=== PATIENT | male | born 1965 | race American Indian/Alaskan Native ===

== ENCOUNTER 2017-10-22 09:55 | Day surgery (SDC) | payer MEDICARE ==
[2017-10-22] MEDS ORDERED: NACL 0.9% 1000 ML 1,000 ML IV SCH (11:00)
--- NOTE | 2017-10-22 11:26 | Anesthesia Consultation ---
Anesthesia Consult and Med Hx Date of service: 10/22/17 - Airway Anesthetic Teeth Evaluation: Poor ROM Head & Neck: Adequate Mental/Hyoid Distance: Adequate Mallampati Class: Class II Intubation Access Assessment: Probably Good - Pulmonary Exam CTA: Yes - Cardiac Exam Cardiac Exam: RRR - Pre-Operative Health Status ASA Pre-Surgery Classification: ASA4 Proposed Anesthetic Plan: MAC - Pulmonary Hx Smoking: Yes Hx Sleep Apnea: Yes - Cardiovascular System Hx Hypertension: Yes - Endocrine Hx End Stage Renal Disease: Yes (on HD. Last HD yesterday)
--- NOTE | 2017-10-22 11:27 | Anesthesia Day of Surgery ---
Anesthesia Day of Surgery - Day of Surgery Patient Examined: Yes Patient H&P Reviewed: Yes Patient is NPO: Yes
[2017-10-22] MEDS ORDERED: DIPRIVAN 10 MG/ML IV ONE ×3 (11:31→12:17)
[2017-10-22] MEDS ORDERED: ADRENALIN ONE (12:00)
[2017-10-22] MEDS ORDERED: GI SPOT IJ ONE (12:01)
[2017-10-22] MEDS ORDERED: ADRENALIN IV ONE (12:18)
--- NOTE | 2017-10-22 12:30 | Operative Report ---
Operative Report Operative Report: Date of procedure: 10/22/2017 Preprocedure diagnosis: Colon cancer screening Post procedure diagnosis: Diminutive cecal polyp, small proximal sigmoid colon polyps and a large distal sigmoid polyp on a stalk. Procedure: Colonoscopy to the cecum with cold snare polypectomy of the cecal lesion, hot snare polypectomy of 2 sigmoid lesions and injection of epinephrine and the large lesion on a stalk in the distal sigmoid followed by hot snare polypectomy Endoscopist: Dr. Corona Anesthesia: Monitored anesthesia care per anesthesia department Estimated blood loss: 0 Medications: Monitored anesthesia care. See separate report by anesthesia for details. After careful discussion of the nature and purpose of the procedure as well as details of the technique risks benefits and alternatives the patient gave consent. Please see recent history and physical from the office. The patient was placed in the left lateral decubitus position and medicated per anesthesia. A rectal exam was performed sphincter tone was normal there were no masses palpable. The Tidy Booksn 570 scope was passed transanally and advanced under continuous direct vision without difficulty to the cecum. The colon was well prepared. The cecum revealed a diminutive polyp, approximately 4 mm in size. The polyp was removed with cold snare resection and retrieved by suction. The ascending colon was normal and on forward and retroflexed views. The transverse colon and descending colon were normal. There were 2 small polyps, 6-8 mm in size in the proximal sigmoid colon. These were removed with hot snare polypectomy and retrieved by suction. There were submitted together in jar 2. A large distal sigmoid polyp was present with an approximately 3 cm size head and a long stalk. The stalk was injected with 2 mL of 1-10,000 epinephrine followed by careful hot snare resection at the level of the stalk successfully. There is no bleeding post polypectomy. The polyp was removed by suction on the tip of the scope during withdrawal. The rectum was normal on forward and retroflexed views. The procedure was well-tolerated overall and the patient was observed in recovery. Conclusions: Diminutive cecal polyp. 2 small sigmoid polyps. One large distal sigmoid polyp on a stalk requiring epinephrine injection to prevent hemorrhage Plan: Pathology. Follow-up colonoscopy in 2-3 years depending upon the pathology. Signed electronically: Bryon Corona M.D.
--- NOTE | 2017-10-22 12:35 | Short Stay Summary ---
Short Stay Documentation Date of service: 10/22/17 Narrative H&P: The patient presents for colon cancer screening. No prior colonoscopy. - History Past Medical History: ESRD (on dialysis), hypertension Past Surgical History: Other (AV fistula for dialysis) Social history: no significant social history, other (history of polysubstance abuse) - Allergies and Medications Current Medications: Allergies No Known Allergies Allergy (Verified 10/21/17 14:47) Home Medications Medication Instructions Recorded Confirmed Last Taken Type RX: Carvedilol [Coreg] 25 mg PO DAILY 02/11/17 10/22/17 10/20/17 History RX: Cinacalcet [Sensipar] 30 mg PO QPM 02/11/17 10/22/17 10/20/17 History RX: Hydralazine HCl [Apresoline 50 mg PO Q8HR 02/11/17 10/22/17 02/12/17 History TAB] RX: Lisinopril [Zestril] 50 mg PO DAILY 02/11/17 10/22/17 10/20/17 History RX: Naproxen Sodium [Aleve TAB] 220 mg PO DAILY 02/11/17 10/22/17 02/07/17 History RX: Pravastatin Sodium 40 mg PO QHS 02/11/17 10/22/17 10/20/17 History [Pravastatin] RX: Sevelamer Carbonate [Renvela] 80 mg PO DAILY 02/11/17 10/22/17 10/20/17 History RX: NIFEdipine XL [Procardia Xl] 60 mg PO Q12HR #60 tablet 02/12/17 10/22/17 Unknown Rx amLODIPine 10 mg PO DAILY 10/22/17 10/22/17 10/20/17 History Active Medications Sodium Chloride (Nacl 0.9% 1000 Ml) 1,000 mls @ 50 mls/hr IV DIRECT DANITA Last Admin: 10/22/17 11:17 Dose: 50 mls/hr - Physical exam General appearance: no acute distress, well-nourished Integumentary: no rash, no growths HEENT: Atraumatic, PERRLA, EOMI Lungs: Clear to auscultation Breasts: deferred Heart: Regular rate, Normal S1, Normal S2, No murmurs Gastrointestinal: normoactive bowel sounds, no distended, no masses, no organomegaly Male Genitourinary: deferred Rectal Exam: normal exam-external/orifice, normal rectal tone Extremities: no ischemia, pulses intact, pulses symmetrical, No edema, normal color Neurological: Normal gait, Normal speech, Strength at 5/5 X4 ext, Normal tone, Sensation intact, Cranial nerves 3-12 NL - Brief post op/procedure progress note Date of procedure: 10/22/17 Findings: see dictated repors Estimated blood loss: none Pathology: list (cecal polyp, 2 proximal sigmoid polyps, 1 large distal sigmoid polyp) Specimen disposition: to lab Condition: stable - Disposition Condition at discharge: Good - Discharge Diagnoses (1) Colon cancer screening Status: Acute (2) Metabolic acidosis Status: Acute (3) Hypertension Status: Chronic Short Stay Discharge Plan Activity: other (no driving for 24 hours, no NSAIDS for 7 days) Follow up with: JOSEPH QUIROZ MD [Primary Care Provider] - 7 Days
[2017-10-22] MEDS ORDERED: APRESOLINE IV ONE (13:10)
[2017-10-22] MEDS ORDERED: APRESOLINE ONE (13:14)
[2017-10-22 13:41] VITALS: BP 164/89
--- NOTE | 2017-10-22 15:11 | Post Anesthesia Evaluation ---
- Post Anesthesia Evaluation Patient Participated: Yes Airway Patent: Yes Stable Respiratory Function: Yes Nausea/Vomiting: No Temp > 96.8F: Yes Pain Manageable: Yes Adequeate Hydration: Yes Anesthesia Complications: No
== END 2017-10-22 09:56 | disposition home or self-care (01) ==
LOC: GIO 09:55
PROVIDERS: ATTEND Internal Medicine Gastroenterology
DX: Z12.11 Encounter for screening for malignant neoplasm of colon (principal); D12.0 Benign neoplasm of cecum; D12.5 Benign neoplasm of sigmoid colon; K63.5 Polyp of colon; I12.0 Hypertensive chronic kidney disease with stage 5 chronic kidney disease or end stage renal disease; N18.6 End stage renal disease; E78.5 Hyperlipidemia, unspecified; G47.30 Sleep apnea, unspecified; F17.200 Nicotine dependence, unspecified, uncomplicated; Z99.2 Dependence on renal dialysis
CPT/HCPCS: 45385; 45390; 88305; J0171; J0360; J2704; J7030

== ENCOUNTER 2017-12-20 16:23 | Emergency (ER) | payer MEDICARE ==
[2017-12-20 17:48] LABS: Hematocrit 34.7 % (35.5-45.6); Hemoglobin 11.3 gm/dl (11.8-15.2); Mean Corpuscular HGB Conc 33 % (32-34); Mean Corpuscular Hemoglobin 29 pg (28-32); Mean Corpuscular Volume 89 fl (84-94); Platelet Count 141 K/mm3 (140-440); Red Blood Count 3.91 M/mm3 (3.65-5.03); Red Cell Distribution Width 14.5 % (13.2-15.2)
[2017-12-20] MEDS ORDERED: ZOFRAN IV ONE (17:57)
[2017-12-20] MEDS ORDERED: NACL 0.9% 500 ML 500 ML IV ONE (17:57)
[2017-12-20] MEDS ORDERED: PEPCID IV ONE (17:57)
[2017-12-20 18:14] LABS: Albumin 4.1 g/dL (3.9-5); Calcium 8.9 mg/dL (8.4-10.2)
[2017-12-20 18:39] LABS: Band Neutrophils # (Manual) 0.1 K/mm3; Basophils % (Manual) 0 % (0.0-1.8); Total Cells Counted 100
[2017-12-20 18:40] LABS: RBC Morphology Normal
--- NOTE | 2017-12-20 20:33 | Ultrasound Report ---
FINAL REPORT PROCEDURE: US ABDOMEN COMPLETE TECHNIQUE: Real-time sonography in multiple planes of the abdomen was performed with image documentation. CPT 04788 HISTORY: NV after eating r/o gallstones COMPARISON: No prior studies are available for comparison. FINDINGS: Liver: Normal size and echotexture with no evidence of cystic or solid mass lesions. Gallbladder: There is mild degree thickening of gallbladder lane. No calculi or pericholecystic collections are identified.. Intrahepatic bile ducts: Normal caliber . Extrahepatic bile ducts: Normal caliber with the common duct measuring 4 millimeters.. Pancreas: Visualized pancreatic head and body demonstrate normal echotexture. Aorta: Visualized portions appear normal. IVC: Visualized portions appear normal. RIGHT kidney: Diffusely increased echotexture with multiple simple cysts.. Length: 9.4 x 3.4 x 5.2cm. LEFT kidney: Diffusely increased to a echotexture with multiple simple cysts. Length: 10.0 x 5.6 x 5.9cm. Spleen: Normal size and echotexture. No focal lesions. Intraperitoneal fluid: Mild degree ascites is identified.. Other: None . IMPRESSION: Increased echotexture bilateral kidneys consistent with chronic medical renal disease. There is no obstructive uropathy. Mild degree ascites Mild degree gallbladder wall thickening is most likely secondary to generalized edema. Differential diagnosis includes acalculous cholecystitis, CHF etc.
[2017-12-20 20:56] LABS: Bilirubin,Urine NEG (Negative); Blood,Urine SM (Negative); Color,Urine Yellow (Yellow); Protein,Urine >500 mg/dL (Negative); Urobilinogen,Urine < 2.0 mg/dL (<2.0)
--- NOTE | 2017-12-20 21:45 | Emergency Department Report ---
ED N/V/D HPI - General Chief complaint: Nausea/Vomiting/Diarrhea Stated complaint: VOMITING Time Seen by Provider: 12/20/17 17:50 Source: patient Mode of arrival: Ambulatory Limitations: No Limitations - History of Present Illness Initial comments: Patient is a 52-year-old black male past history end-stage renal disease on hemodialysis who is presenting with nausea and vomiting diarrhea. Patient states that after he eats for the last week he feels nauseous sometimes gets sweaty and then has diarrhea. Patient states he is limiting his by mouth intake because of these symptoms. Patient patient states that there is no abdominal pain fever chills. Patient denies cough. Patient states this only happens after he eats and is most after his dialysis. Description of Diarrhea: water Associated Abdominal Pain: No Consistency: intermittent Worsens with: eating - Related Data Home Medications Medication Instructions Recorded Confirmed Last Taken Carvedilol [Coreg] 25 mg PO DAILY 02/11/17 10/22/17 10/20/17 Cinacalcet [Sensipar] 30 mg PO QPM 02/11/17 10/22/17 10/20/17 Hydralazine HCl [Apresoline TAB] 50 mg PO Q8HR 02/11/17 10/22/17 02/12/17 Lisinopril [Zestril] 50 mg PO DAILY 02/11/17 10/22/17 10/20/17 Naproxen Sodium [Aleve TAB] 220 mg PO DAILY 02/11/17 10/22/17 02/07/17 Pravastatin Sodium [Pravastatin] 40 mg PO QHS 02/11/17 10/22/17 10/20/17 Sevelamer Carbonate [Renvela] 80 mg PO DAILY 02/11/17 10/22/17 10/20/17 amLODIPine 10 mg PO DAILY 10/22/17 10/22/17 10/20/17 Previous Rx's Medication Instructions Recorded Last Taken Type NIFEdipine XL [Procardia Xl] 60 mg PO Q12HR #60 tablet 02/12/17 Unknown Rx Dicyclomine [Bentyl] 40 mg PO QID #12 tablet 12/20/17 Unknown Rx Diphenoxylate/Atropine [Lomotil] 1 tab PO BID PRN #10 tablet 12/20/17 Unknown Rx Ondansetron [Zofran Odt] 4 mg PO Q8HR PRN #12 tab.rapdis 12/20/17 Unknown Rx Allergies Allergy/AdvReac Type Severity Reaction Status Date / Time No Known Allergies Allergy Verified 10/21/17 14:47 ED Review of Systems ROS: Stated complaint: VOMITING Other details as noted in HPI Comment: All other systems reviewed and negative ED Past Medical Hx - Past Medical History Hx Hypertension: Yes Hx Renal Disease: Yes Additional medical history: dialysis pt,tues,thurs sat - Surgical History Past Surgical History?: Yes Additional Surgical History: fisutla CARLENE - Social History Smoking Status: Former Smoker Substance Use Type: Alcohol - Medications Home Medications: Home Medications Medication Instructions Recorded Confirmed Last Taken Type Carvedilol [Coreg] 25 mg PO DAILY 02/11/17 10/22/17 10/20/17 History Cinacalcet [Sensipar] 30 mg PO QPM 02/11/17 10/22/17 10/20/17 History Hydralazine HCl [Apresoline TAB] 50 mg PO Q8HR 02/11/17 10/22/17 02/12/17 History Lisinopril [Zestril] 50 mg PO DAILY 02/11/17 10/22/17 10/20/17 History Naproxen Sodium [Aleve TAB] 220 mg PO DAILY 02/11/17 10/22/17 02/07/17 History Pravastatin Sodium [Pravastatin] 40 mg PO QHS 02/11/17 10/22/17 10/20/17 History Sevelamer Carbonate [Renvela] 80 mg PO DAILY 02/11/17 10/22/17 10/20/17 History NIFEdipine XL [Procardia Xl] 60 mg PO Q12HR #60 tablet 02/12/17 10/22/17 Unknown Rx amLODIPine 10 mg PO DAILY 10/22/17 10/22/17 10/20/17 History Dicyclomine [Bentyl] 40 mg PO QID #12 tablet 12/20/17 Unknown Rx Diphenoxylate/Atropine [Lomotil] 1 tab PO BID PRN #10 tablet 12/20/17 Unknown Rx Ondansetron [Zofran Odt] 4 mg PO Q8HR PRN #12 tab.rapdis 12/20/17 Unknown Rx ED Physical Exam - General Limitations: No Limitations General appearance: alert, in no apparent distress - Head Head exam: Present: atraumatic, normocephalic - Eye Eye exam: Present: normal appearance - ENT ENT exam: Present: mucous membranes moist - Neck Neck exam: Present: normal inspection - Respiratory Respiratory exam: Present: normal lung sounds bilaterally. Absent: respiratory distress, wheezes, rales, rhonchi - Cardiovascular Cardiovascular Exam: Present: regular rate, normal rhythm. Absent: systolic murmur, diastolic murmur, rubs, gallop - GI/Abdominal GI/Abdominal exam: Present: soft, normal bowel sounds - Rectal Rectal exam: Present: deferred - Extremities Exam Extremities exam: Present: normal inspection - Back Exam Back exam: Present: normal inspection - Neurological Exam Neurological exam: Present: alert, oriented X3 - Psychiatric Psychiatric exam: Present: normal affect, normal mood - Skin Skin exam: Present: warm, dry, intact, normal color. Absent: rash ED Course Vital Signs 12/20/17 12/20/17 12/20/17 17:15 17:58 20:00 Temperature 98.2 F 99.3 F Pulse Rate 65 66 67 Respiratory 16 16 19 Rate Blood Pressure 151/83 Blood Pressure 166/94 161/93 [Left] O2 Sat by Pulse 100 100 98 Oximetry ED Medical Decision Making - Lab Data Result diagrams: 12/20/17 17:32 12/20/17 17:32 - Radiology Data Radiology results: report reviewed Patient has no acute process. Patient does have some mild fluid overload secondary to most likely to his end-stage renal disease. - Medical Decision Making Patient was feeling slightly improved. Patient's laboratory studies as well as his ultrasound did not show any convincing reason why the patient is having these symptoms. Patient will be referred to gastroenterology. Critical care attestation.: If time is entered above; I have spent that time in minutes in the direct care of this critically ill patient, excluding procedure time. ED Disposition Clinical Impression: Gastroenteritis Disposition: DC-01 TO HOME OR SELFCARE Is pt being admited?: No Does the pt Need Aspirin: No Condition: Stable Instructions: Gastroenteritis (ED) Prescriptions: Dicyclomine [Bentyl] 40 mg PO QID #12 tablet Diphenoxylate/Atropine [Lomotil] 1 tab PO BID PRN #10 tablet PRN Reason: Diarrhea Ondansetron [Zofran Odt] 4 mg PO Q8HR PRN #12 tab.rapdis PRN Reason: Nausea Referrals: LORENZO HOLLEY MD [Staff Physician] - 3-5 Days
[2017-12-20 22:10] VITALS: BP 164/94
== END 2017-12-20 22:10 | disposition home or self-care (01) ==
LOC: ED 16:23
DX: K52.9 Noninfective gastroenteritis and colitis, unspecified (principal); I12.0 Hypertensive chronic kidney disease with stage 5 chronic kidney disease or end stage renal disease; N18.6 End stage renal disease; Z99.2 Dependence on renal dialysis; Z87.891 Personal history of nicotine dependence
CPT/HCPCS: 36415; 76700; 80053; 81001; 83690; 85007; 85025; 96374; 96375; 99284; J2405; J7040

== ENCOUNTER 2018-09-16 10:45 | Inpatient (IN) | payer MEDICARE ==
[2018-09-16] MEDS ORDERED: ZOFRAN IV ONE (11:22)
--- NOTE | 2018-09-16 11:23 | Emergency Department Report ---
HPI - General Chief Complaint: Weakness Time Seen by Provider: 09/16/18 11:08 - HPI HPI: Room 24 The patient is a 53 y/o male p/w a CC of SOB and CP. The pt states for 1 week he's had WHITLEY. Pt states today his SOB worsened and he developed ssCP described as a "hurt." The pt admits to diaphoresis and nausea without vomiting associated wih his CP. the pt states he's never had a stress test and he doesnt think he's had a cath ED Past Medical Hx - Past Medical History Hx Hypertension: Yes Hx Renal Disease: Yes Additional medical history: dialysis pt,[facility] - Surgical History Additional Surgical History: martín CONCEPCION - Family History Family history: no significant - Social History Smoking Status: Current Some Day Smoker Substance Use Type: None (denies illicit drug use) - Medications Home Medications: Home Medications Medication Instructions Recorded Confirmed Last Taken Type Carvedilol [Coreg] 25 mg PO DAILY 02/11/17 10/22/17 10/20/17 History Cinacalcet [Sensipar] 30 mg PO QPM 02/11/17 10/22/17 10/20/17 History Hydralazine HCl [Apresoline TAB] 50 mg PO Q8HR 02/11/17 10/22/17 02/12/17 History Lisinopril [Zestril] 50 mg PO DAILY 02/11/17 10/22/17 10/20/17 History Naproxen Sodium [Aleve TAB] 220 mg PO DAILY 02/11/17 10/22/17 02/07/17 History Pravastatin Sodium [Pravastatin] 40 mg PO QHS 02/11/17 10/22/17 10/20/17 History Sevelamer Carbonate [Renvela] 80 mg PO DAILY 02/11/17 10/22/17 10/20/17 History NIFEdipine XL [Procardia Xl] 60 mg PO Q12HR #60 tablet 02/12/17 10/22/17 Unknown Rx amLODIPine 10 mg PO DAILY 10/22/17 10/22/17 10/20/17 History Dicyclomine [Bentyl] 40 mg PO QID #12 tablet 12/20/17 Unknown Rx Diphenoxylate/Atropine [Lomotil] 1 tab PO BID PRN #10 tablet 12/20/17 Unknown Rx Ondansetron [Zofran Odt] 4 mg PO Q8HR PRN #12 tab.rapdis 12/20/17 Unknown Rx ED Review of Systems ROS: Stated complaint: SOB/COUGH Other details as noted in HPI Constitutional: diaphoresis Eyes: denies: eye pain ENT: denies: throat pain Respiratory: shortness of breath, SOB with exertion Cardiovascular: chest pain Endocrine: no symptoms reported Gastrointestinal: nausea. denies: vomiting Genitourinary: denies: testicular pain Musculoskeletal: denies: back pain Neurological: denies: headache Physical Exam - Physical Exam Vital Signs: Vital Signs 09/16/18 11:03 Pulse Rate 59 L Respiratory 16 Rate Blood Pressure 135/86 O2 Sat by Pulse 93 Oximetry Physical Exam: GEN: WD male lying on stretcher not appearing to be in acute distress. HEENT: NCAT Neck: Trachea midline CV: rrr. +thrill RUE fistula Lungs: BS equal bilat Abd: S/NT/ND Skin: no diaphoresis Neuro: GCS 15 ED Course Vital Signs 09/16/18 11:03 Pulse Rate 59 L Respiratory 16 Rate Blood Pressure 135/86 O2 Sat by Pulse 93 Oximetry - Consultations Consultation #1: 09/16/18 12:31 nephrology paged 09/16/18 13:09 Case d/w Dr Zabala- will arrange for HD ED Medical Decision Making - Lab Data Result diagrams: 09/16/18 11:45 09/16/18 11:45 Laboratory Tests 09/16/18 09/16/18 11:45 11:45 WBC 5.2 RBC 3.95 Hgb 11.7 L Hct 35.0 L MCV 89 MCH 30 MCHC 34 RDW 15.3 H Plt Count 127 L Lymph % (Auto) 14.5 [place] % (Auto) 6.1 Eos % (Auto) 9.4 H Baso % (Auto) 1.1 Lymph # 0.7 L [place] # 0.3 Eos # 0.5 H Baso # 0.1 Seg Neutrophils % 68.9 Seg Neutrophils # 3.5 Sodium 136 L Potassium 6.0 H Chloride 97.1 L Carbon Dioxide 19 L Anion Gap 26 BUN 67 H Creatinine 12.8 H Estimated GFR 5 BUN/Creatinine Ratio 5 Glucose 82 Calcium 8.7 Total Creatine Kinase 106 CK-MB (CK-2) 2.3 CK-MB (CK-2) Rel Index 2.1 Troponin T 0.016 - EKG Data -: EKG Interpreted by Me EKG shows normal: sinus rhythm Rate: normal - EKG Data When compared to previous EKG there are: previous EKG unavailable Interpretation: nonspecific ST-T wave amanda (TWI V2) - Radiology Data Radiology results: image reviewed (CXR) interpreted by me: CXR- pulmonary edema [facility] [address] [place] [address] XRay Report Signed Patient: ROSA LYA MR#: [id number] : 1965 Acct:[id number] Age/Sex: 53 / M ADM Date: 09/16/18 Loc: ED Attending Dr: Ordering Physician: JOAQUÍN VELASQUEZ MD Date of Service: 09/16/18 Procedure(s): XR chest 1V ap Accession Number(s): [id number] cc: JOAQUÍN VELASQUEZ MD Fluoro Time In Minutes: AP CHEST: HISTORY: Chest Mild cardiomegaly and mild pulmonary edema are identified which appear increased since 02/11/17. No evidence for consolidation, pleural effusion or pneumothorax. The bony structures are intact. IMPRESSION: Cardiomegaly and pulmonary edema. Transcribed By: TTR Dictated By: APRIL RAMSEY JR, MD Electronically Authenticated By: APRIL RAMSEY JR, MD Signed Date/Time: 09/16/18 1133 DD/ 1132 TD/TT: 09/16/18 1133 - Differential Diagnosis acs, pericarditis, GERD Critical care attestation.: If time is entered above; I have spent that time in minutes in the direct care of this critically ill patient, excluding procedure time. ED Disposition Clinical Impression: Chest pain, Shortness of breath, CHF (congestive heart failure), ESRD needing dialysis, Volume overload, Hyperkalemia Disposition: OP ADMIT IP TO THIS HOSP Is pt being admited?: Yes Does the pt Need Aspirin: Yes Condition: Fair Instructions: Chest Pain (ED) Referrals: PRIMARY CARE, [Primary Care Provider] - 3-5 Days Time of Disposition: 12:32 (Hospitalist paged (Dr Jones))
--- NOTE | 2018-09-16 11:35 | XRay Report ---
AP CHEST: HISTORY: Chest Mild cardiomegaly and mild pulmonary edema are identified which appear increased since 02/11/17. No evidence for consolidation, pleural effusion or pneumothorax. The bony structures are intact. IMPRESSION: Cardiomegaly and pulmonary edema.
[2018-09-16] MEDS ORDERED: ASPIRIN PO ONE (12:03)
[2018-09-16 12:18] LABS: Basophils # (Auto) 0.1 K/mm3 (0.0-0.1); Basophils % (Auto) 1.1 % (0.0-1.8); Eosinophils # (Auto) 0.5 K/mm3 (0.0-0.4); Eosinophils % (Auto) 9.4 % (0.0-4.3); Hemoglobin 11.7 gm/dl (11.8-15.2); Lymphocytes # (Auto) 0.7 K/mm3 (1.2-5.4); Lymphocytes % (Auto) 14.5 % (13.4-35.0); Mean Corpuscular HGB Conc 34 % (32-34); Mean Corpuscular Volume 89 fl (84-94); Monocytes # (Auto) 0.3 K/mm3 (0.0-0.8); Monocytes % (Auto) 6.1 % (0.0-7.3); Platelet Count 127 K/mm3 (140-440); Red Blood Count 3.95 M/mm3 (3.65-5.03); Red Cell Distribution Width 15.3 % (13.2-15.2)
[2018-09-16 12:25] LABS: Creatine Kinase MB 2.3 ng/mL (0.0-4.0)
[2018-09-16 12:26] LABS: Calcium 8.7 mg/dL (8.4-10.2)
--- NOTE | 2018-09-16 12:56 | History and Physical Report ---
History of Present Illness Chief complaint: I cant breathe History of present illness: 53 YO Male with ESRD on HD(T,R,Sa), HTN, Nicotine Dependence presents to ED for evaluation. Pt states that he has experienced shortness of breath over the past 1 week, with worsening symptoms over the past 1 day. Pt states that he experience the aforementioned symptoms while walking to his dialysis clinic for his scheduled routine dialysis today. Pt seen and evaluated in dialysis clinic and found to be in respiratory distress. EMS notified, and patient transported to [facility] for further care and evaluation. Pt seen and evaluated in ED and found to have ESRD. Upon further questioning, patient acknowledges shortness of breath and chest discomfort. Pt denies fever, chills, CP, palpitations, NVD, Trauma, unilateral leg swelling, calf pain, hemoptysis, prolonged travel/immobility, Individual/Family history of DVT/PE/Blood Clotting Disorders. Past History Past Medical History: ESRD, hypertension Past Surgical History: Other (AV Fistula Placement) Social history: single, smoking Family history: hypertension Medications and Allergies Allergies Allergy/AdvReac Type Severity Reaction Status Date / Time No Known Allergies Allergy Verified 10/21/17 14:47 Home Medications Medication Instructions Recorded Confirmed Last Taken Type Carvedilol [Coreg] 25 mg PO DAILY 02/11/17 09/16/18 09/16/18 History Cinacalcet [Sensipar] 30 mg PO DAILY 02/11/17 09/16/18 09/16/18 History Hydralazine HCl [Apresoline TAB] 50 mg PO QDAY 02/11/17 09/16/18 09/16/18 History Lisinopril [Zestril] 40 mg PO DAILY 02/11/17 09/16/18 09/16/18 History Pravastatin Sodium [Pravastatin] 40 mg PO DAILY 02/11/17 09/16/18 09/16/18 History Sevelamer Carbonate [Renvela] 800 mg PO DAILY 02/11/17 09/16/18 09/16/18 History amLODIPine [Norvasc] 10 mg PO DAILY 09/16/18 09/16/18 09/16/18 History Review of Systems Constitutional: no weight gain, no fever, no chills Ears, nose, mouth and throat: no ear pain, no ear discharge, no tinnitis, no decreased hearing, no nose pain Cardiovascular: shortness of breath, no chest pain, no orthopnea, no dyspnea on exertion Respiratory: no cough, no cough with sputum, no excessive sputum, no hemoptysis Gastrointestinal: no nausea, no vomiting, no diarrhea, no constipation, no change in bowel habits Genitourinary Male: no hematuria, no flank pain, no discharge, no urinary frequency, no urinary hesitancy Rectal: no pain, no incontinence, no bleeding Musculoskeletal: no neck stiffness, no neck pain, no shooting arm pain, no arm numbness/tingling, no low back pain, no shooting leg pain Integumentary: no rash, no pruritis, no redness, no sores, no wounds Neurological: no paralysis, no weakness, no parathesias, no numbness, no tingli ng, no seizures Psychiatric: no anxiety, no memory loss, no change in sleep habits, no sleep disturbances, no insomnia, no hypersomnia, no change in libido Endocrine: no cold intolerance, no heat intolerance, no polyphagia, no excessive thirst, no polydipsia, no polyuria Hematologic/Lymphatic: no easy bruising, no easy bleeding, no lymphadenopathy, no lymphedema Allergic/Immunologic: no urticaria, no allergic rhinitis, no wheezing, no persistent infections, no anaphylaxis, no angioedema Exam - Constitutional Vitals: Temp Pulse Resp BP Pulse Ox 97.5 F L 58 L 16 129/77 93 09/16/18 11:22 09/16/18 12:15 09/16/18 12:15 09/16/18 12:15 09/16/18 11:03 General appearance: Present: mild distress - EENT Eyes: Present: PERRL ENT: hearing intact, clear oral mucosa - Neck Neck: Present: supple, normal ROM - Respiratory Respiratory effort: normal Respiratory: bilateral: diminished, rhonchi - Cardiovascular Heart Sounds: Present: S1 & S2. Absent: rub, click - Extremities Extremities: pulses symmetrical, No edema Peripheral Pulses: within normal limits - Abdominal General gastrointestinal: Present: soft, non-tender, non-distended, normal bowel sounds Male genitourinary: Present: normal - Integumentary Integumentary: Present: clear, warm, dry - Musculoskeletal Musculoskeletal: gait normal, strength equal bilaterally - Psychiatric Psychiatric: appropriate mood/affect, intact judgment & insight - Neurologic Neurologic: CNII-XII intact, moves all extremities Results - Labs CBC & Chem 7: 09/16/18 11:45 09/16/18 11:45 Labs: Abnormal lab results 09/16/18 09/16/18 Range/Units 11:45 11:45 Hgb 11.7 L (11.8-15.2) gm/dl Hct 35.0 L (35.5-45.6) % RDW 15.3 H (13.2-15.2) % Plt Count 127 L (140-440) K/mm3 Eos % (Auto) 9.4 H (0.0-4.3) % Lymph # 0.7 L (1.2-5.4) K/mm3 Eos # 0.5 H (0.0-0.4) K/mm3 Sodium 136 L (137-145) mmol/L Potassium 6.0 H (3.6-5.0) mmol/L Chloride 97.1 L (98-107) mmol/L Carbon Dioxide 19 L (22-30) mmol/L BUN 67 H (9-20) mg/dL Creatinine 12.8 H (0.8-1.5) mg/dL Assessment and Plan - Patient Problems (1) ESRD needing dialysis Current Visit: Yes Status: Chronic Plan to address problem: nephrology consulted in ED, dialysis as per renal team, strict I/O, monitor uop q shift, avoid nephrotoxic agents. (2) Nicotine dependence unspecified, with withdrawal Current Visit: Yes Status: Acute Qualifiers: Nicotine product type: cigarettes Qualified Code(s): F17.213 - Nicotine dependence, cigarettes, with withdrawal Plan to address problem: smoking cessation counseleing, supportive care. (3) HTN (hypertension) Current Visit: Yes Status: Acute Qualifiers: Hypertension type: essential hypertension Qualified Code(s): I10 - Essential (primary) hypertension Plan to address problem: monitor bp q shift, supportive care, continue medical management. (4) DVT prophylaxis Current Visit: Yes Status: Acute Plan to address problem: SCD to BLE while in bed.
[2018-09-16] MEDS ORDERED: HumuLIN R IV ONE (13:08)
[2018-09-16] MEDS ORDERED: D50W (25GM) Syringe IV ONE (13:08)
[2018-09-16] MEDS ORDERED: SODIUM CHLORIDE FLUSH SYRINGE 10 ML IV PRN (13:14)
[2018-09-16] MEDS ORDERED: ZOFRAN IV PRN (13:14)
[2018-09-16] MEDS ORDERED: TYLENOL PO PRN (13:14)
[2018-09-16] MEDS ORDERED: ZOFRAN ODT PO PRN (13:15)
[2018-09-16] MEDS ORDERED: LOMOTIL PO PRN (13:28)
[2018-09-16] MEDS ORDERED: NON-FORMULARY (Hydralazine Hcl [Apresoline Tab] 50 MG) PO SCH (14:00)
[2018-09-16] MEDS ORDERED: CALCIUM GLUCONATE 1,000 MG in NACL 0.9% 100 ML IV ONE (14:08)
[2018-09-16] MEDS ORDERED: NACL 0.9% 100 ML IV PRN (14:56)
[2018-09-16 17:39] LABS: Hepatitis B Surface Antigen Non-Reactive (Negative); Hepatitis C Virus Antibody Non-Reactive (NonReactive)
[2018-09-16] MEDS ORDERED: SENSIPAR PO SCH (18:00)
[2018-09-16] MEDS: RENVELA PO SCH (20:02)
[2018-09-16] MEDS: APRESOLINE PO SCH ×2 (20:05→21:42)
[2018-09-16] MEDS: BENTYL PO SCH ×2 (20:05→21:42)
[2018-09-16] MEDS: PROCARDIA XL PO SCH (21:42)
[2018-09-16] MEDS: SODIUM CHLORIDE FLUSH SYRINGE 10 ML IV SCH (21:43)
[2018-09-16] MEDS ORDERED: NON-FORMULARY (Pravastatin Sodium [Pravastatin] 40 MG) PO SCH (22:00)
[2018-09-16] MEDS ORDERED: PRAVACHOL PO SCH (22:00)
--- NOTE | 2018-09-16 22:07 | Consultation ---
History of Present Illness - Reason for Consult Consult date: 09/16/18 end stage renal disease, hyperkalemia - History of Present Illness The patient is a 53 YO Male who is well known to our service with history significant for ESRD on HD (TTS), HTN and HLD who presented to ED with c/o shortness of breath. The symptom were mild when it started few days but the shortness of breath got worse while walking to his dialysis clinic. EMS was called and patient was transported to the ER for further care and evaluation. Patient admits drinking excessive fluids over the weekend. He also reports leg swelling. Pt denies cough, phlegm, hemoptysis, fever, chills, CP, N, V, D, abd pain, dizziness or syncope. Nephrology was consulted for further evaluation. Past History Past Medical History: dialysis, ESRD, hypertension Past Surgical History: Other (AV Fistula Placement) Social history: single, smoking Family history: hypertension Medications and Allergies Allergies Allergy/AdvReac Type Severity Reaction Status Date / Time No Known Allergies Allergy Verified 10/21/17 14:47 Home Medications Medication Instructions Recorded Confirmed Last Taken Type Carvedilol [Coreg] 25 mg PO DAILY 02/11/17 09/16/18 09/16/18 History Cinacalcet [Sensipar] 30 mg PO DAILY 02/11/17 09/16/18 09/16/18 History Hydralazine HCl [Apresoline TAB] 50 mg PO QDAY 02/11/17 09/16/18 09/16/18 History Lisinopril [Zestril] 40 mg PO DAILY 02/11/17 09/16/18 09/16/18 History Pravastatin Sodium [Pravastatin] 40 mg PO DAILY 02/11/17 09/16/18 09/16/18 History Sevelamer Carbonate [Renvela] 800 mg PO DAILY 02/11/17 09/16/18 09/16/18 History amLODIPine [Norvasc] 10 mg PO DAILY 09/16/18 09/16/18 09/16/18 History Dicyclomine [Bentyl] 40 mg PO QID tablet 09/17/18 Unknown Rx Diphenoxylate/Atropine [Lomotil] 1 tab PO BID PRN tablet 09/17/18 Unknown Rx NIFEdipine XL [Procardia Xl] 60 mg PO Q12HR tablet 09/17/18 Unknown Rx Active Meds: Active Medications Acetaminophen (Tylenol) 650 mg PO Q4H PRN PRN Reason: Pain MILD(1-3)/Fever >100.5/OLIVAS Amlodipine Besylate (Norvasc) 10 mg PO DAILY [facility] Carvedilol (Coreg) 25 mg PO DAILY [facility] Cinacalcet (Sensipar) 30 mg PO QPM [facility] Last Admin: 09/16/18 20:03 Dose: 30 mg Documented by: Dicyclomine HCl (Bentyl) 40 mg PO QID [facility] Last Admin: 09/16/18 21:42 Dose: 40 mg Documented by: Diphenoxylate HCl/Atropine (Lomotil) 1 tab PO BID PRN PRN Reason: Diarrhea Hydralazine HCl (Apresoline) 50 mg PO Q8HR [facility] Last Admin: 09/16/18 21:42 Dose: 50 mg Documented by: Sodium Chloride (Nacl 0.9%) 100 mls @ 999 mls/hr IV ALISSA PRN PRN Reason: Hypotension Lisinopril (Zestril) 40 mg PO DAILY [facility] Nifedipine (Procardia Xl) 60 mg PO Q12HR [facility] Last Admin: 09/16/18 21:42 Dose: 60 mg Documented by: Ondansetron HCl (Zofran) 4 mg IV Q8H PRN PRN Reason: Nausea And Vomiting Pravastatin Sodium (Pravachol) 40 mg PO QHS [facility] Last Admin: 09/16/18 21:42 Dose: 40 mg Documented by: Sevelamer Carbonate (Renvela) 800 mg PO TIDWM [facility] Last Admin: 09/16/18 20:02 Dose: Not Given Documented by: Sodium Chloride (Sodium Chloride Flush Syringe 10 Ml) 10 ml IV BID [facility] Last Admin: 09/16/18 21:43 Dose: 10 ml Documented by: Sodium Chloride (Sodium Chloride Flush Syringe 10 Ml) 10 ml IV PRN PRN PRN Reason: LINE FLUSH Review of Systems Constitutional: no weight loss, no weight gain, no fever, no chills, no anorexia, no weakness Cardiovascular: orthopnea, edema, shortness of breath, dyspnea on exertion, high blood pressure, leg edema, decreased exercise tolerance, no chest pain, no palpitations, no syncope, no lightheadedness Respiratory: shortness of breath, dyspnea on exertion, no cough, no cough with sputum, no excessive sputum, no hemoptysis, no sleep apnea, no home oxygen Gastrointestinal: no abdominal pain, no nausea, no vomiting, no diarrhea Genitourinary Male: no dysuria, no hematuria Musculoskeletal: no limitation of motion, no gait dysfunction Integumentary: no rash, no redness, no sores, no wounds, no jaundice Neurological: no paralysis, no weakness, no numbness, no tingling, no seizures, no syncope, no convulsions, no aphasia, no change in speech, no change in mentation, no confusion, no memory loss, no gait dysfunction, no sensory deficit, no double vision, no loss of vision, no paralysis Psychiatric: no disorientation Exam - Vital Signs Vital signs: Vital Signs Pulse Resp BP Pulse Ox 59 L 16 135/86 93 09/16/18 11:03 09/16/18 11:03 09/16/18 11:03 09/16/18 11:03 - General Appearance General appearance: well-developed, well-nourished, appears stated age, other (not in distress) EENT: ATNC, PERRL, mucous membranes moist, hearing intact, vision intact Neck: Present: neck supple, trachea midline, JVD/HJR Respiratory: Rales Heart: regular, S1S2, no murmurs Gastrointestinal: Present: normoactive bowel sounds. Absent: tenderness, distended Integumentary: no rash, warm and dry Neurologic: no focal deficit, no asterixis, alert and oriented x3 Musculoskeletal: Present: other (right arm AVF, trace LE edema noted) Psychiatric: cooperative Results - Lab Results 09/16/18 11:45 09/17/18 09:45 Most recent lab results Calcium 8.7 mg/dL (8.4-10.2) 09/16/18 11:45 Assessment and Plan 1. Volume overload with respiratory distress: HD today with removal of 3-4 lts of fluid as tolerated. Fluid compliance encouraged. 2. Hyperkalemia: HD today. 3. ESRD: Continue hemodialysis three times a week. 4. HTN.
[2018-09-17] MEDS: APRESOLINE PO SCH ×2 (06:26→13:01)
[2018-09-17] MEDS: RENVELA PO SCH ×2 (08:22→12:56)
--- NOTE | 2018-09-17 09:22 | Progress Note ---
Assessment and Plan Assessment and plan: 53 YO Male with ESRD on HD(T,R,Sa), HTN, Nicotine Dependence presents to ED for evaluation. Pt states that he has experienced shortness of breath over the past 1 week, with worsening symptoms over the past 1 day. Pt states that he experience the aforementioned symptoms while walking to his dialysis clinic for his scheduled routine dialysis today. Pt seen and evaluated in dialysis clinic and found to be in respiratory distress. EMS notified, and patient transported to [facility] for further care and evaluation. Pt seen and evaluated in ED and found to have ESRD. Upon further questioning, patient acknowledges shortness of breath and chest discomfort. Pt denies fever, chills, CP, palpitations, NVD, Trauma, unilateral leg swelling, calf pain, hemoptysis, prolonged travel/immobility, Individual/Family history of DVT/PE/Blood Clotting Disorders. (1) ESRD needing dialysis Current Visit: Yes Status: Chronic Plan to address problem: nephrology consulted in ED, dialysis as per renal team, strict I/O, monitor uop q shift, avoid nephrotoxic agents. (2) Nicotine dependence unspecified, with withdrawal Current Visit: Yes Status: Acute Qualifiers: Nicotine product type: cigarettes Qualified Code(s): F17.213 - Nicotine dependence, cigarettes, with withdrawal Plan to address problem: smoking cessation counseleing, supportive care. (3) HTN (hypertension) Current Visit: Yes Status: Acute Qualifiers: Hypertension type: essential hypertension Qualified Code(s): I10 - Essential (primary) hypertension Plan to address problem: monitor bp q shift, supportive care, continue medical management. (4) Atypical Chest pain Likely secondary to fluid overload from ESRD Nevertheless, abnormal EKG noted. No prior cardiac work up. Patient was diaphoretic with the chest pain. Stress in am (5) Thrombocytopenia Monitor. Likely due to underlying ESRD. No bleeding noted (6)DVT prophylaxis Current Visit: Yes Status: Acute Plan to address problem: SCD to BLE while in bed. Hospitalist Physical - Constitutional Vitals: Temp Pulse Resp BP Pulse Ox 98.0 F 73 18 126/78 92 09/17/18 05:35 09/17/18 05:35 09/17/18 05:35 09/17/18 05:35 09/17/18 05:35 General appearance: Present: mild distress Results - Labs CBC & Chem 7: 09/16/18 11:45 09/16/18 11:45 Labs: Laboratory Last Values WBC 5.2 K/mm3 (4.5-11.0) 09/16/18 11:45 RBC 3.95 M/mm3 (3.65-5.03) 09/16/18 11:45 Hgb 11.7 gm/dl (11.8-15.2) L 09/16/18 11:45 Hct 35.0 % (35.5-45.6) L 09/16/18 11:45 MCV 89 fl (84-94) 09/16/18 11:45 MCH 30 pg (28-32) 09/16/18 11:45 MCHC 34 % (32-34) 09/16/18 11:45 RDW 15.3 % (13.2-15.2) H 09/16/18 11:45 Plt Count 127 K/mm3 (140-440) L 09/16/18 11:45 Lymph % (Auto) 14.5 % (13.4-35.0) 09/16/18 11:45 [place] % (Auto) 6.1 % (0.0-7.3) 09/16/18 11:45 Eos % (Auto) 9.4 % (0.0-4.3) H 09/16/18 11:45 Baso % (Auto) 1.1 % (0.0-1.8) 09/16/18 11:45 Lymph # 0.7 K/mm3 (1.2-5.4) L 09/16/18 11:45 [place] # 0.3 K/mm3 (0.0-0.8) 09/16/18 11:45 Eos # 0.5 K/mm3 (0.0-0.4) H 09/16/18 11:45 Baso # 0.1 K/mm3 (0.0-0.1) 09/16/18 11:45 Seg Neutrophils % 68.9 % (40.0-70.0) 09/16/18 11:45 Seg Neutrophils # 3.5 K/mm3 (1.8-7.7) 09/16/18 11:45 Sodium 136 mmol/L (137-145) L 09/16/18 11:45 Potassium 6.0 mmol/L (3.6-5.0) H 09/16/18 11:45 Chloride 97.1 mmol/L (98-107) L 09/16/18 11:45 Carbon Dioxide 19 mmol/L (22-30) L 09/16/18 11:45 Anion Gap 26 mmol/L 09/16/18 11:45 BUN 67 mg/dL (9-20) H 09/16/18 11:45 Creatinine 12.8 mg/dL (0.8-1.5) H 09/16/18 11:45 Estimated GFR 5 ml/min 09/16/18 11:45 BUN/Creatinine Ratio 5 % 09/16/18 11:45 Glucose 82 mg/dL (75-100) 09/16/18 11:45 Calcium 8.7 mg/dL (8.4-10.2) 09/16/18 11:45 Total Creatine Kinase 106 units/L (55-170) 09/16/18 11:45 CK-MB (CK-2) 2.3 ng/mL (0.0-4.0) 09/16/18 11:45 CK-MB (CK-2) Rel Index 2.1 (0-4) 09/16/18 11:45 Troponin T 0.016 ng/mL (0.00-0.029) 09/16/18 11:45 Hepatitis A IgM Ab Non-reactive (NonReactive) 09/16/18 16:55 Hep Bs Antigen Non-reactive (Negative) 09/16/18 16:55 Hep B Core IgM Ab Non-reactive (NonReactive) 09/16/18 16:55 Hepatitis C Antibody Non-reactive (NonReactive) 09/16/18 16:55
[2018-09-17] MEDS ORDERED: ZESTRIL PO SCH ×2 (10:00)
[2018-09-17] MEDS ORDERED: COREG PO SCH (10:00)
[2018-09-17] MEDS ORDERED: NORVASC PO SCH (10:00)
[2018-09-17] MEDS ORDERED: NON-FORMULARY (Amlodipine 10 MG) PO SCH (10:00)
[2018-09-17] MEDS ORDERED: RENVELA PO SCH (10:00)
[2018-09-17 10:16] LABS: Calcium 7.8 mg/dL (8.4-10.2)
[2018-09-17] MEDS: PROCARDIA XL PO SCH (10:30)
[2018-09-17] MEDS: BENTYL PO SCH ×2 (10:30→13:01)
[2018-09-17] MEDS: SODIUM CHLORIDE FLUSH SYRINGE 10 ML IV SCH (10:31)
[2018-09-17 13:02] VITALS: BP 117/73
--- NOTE | 2018-09-17 13:51 | Discharge Summary ---
Providers - Providers Date of Admission: 09/16/18 13:14 Attending physician: CRICKET LEON MD 09/16/18 12:57 Consult to Physician [CONS] Routine Comment: DR QUIROZ NOTIFIED 1300 Consulting Provider: JOSEPH QUIROZ Physician Instructions: Reason For Exam: esrd Primary care physician: [employer] Hospitalization Reason for admission: shortness of breath Condition: Stable Hospital course: 53 YO Male with ESRD on HD(T,R,Sa), HTN, Nicotine Dependence presents to ED for evaluation. Pt states that he has experienced shortness of breath over the past 1 week, with worsening symptoms over the past 1 day. Pt states that he experience the aforementioned symptoms while walking to his dialysis clinic for his scheduled routine dialysis today. Pt seen and evaluated in dialysis clinic and found to be in respiratory distress. EMS notified, and patient transported to [facility] for further care and evaluation. Pt seen and evaluated in ED and found to have ESRD. Upon further questioning, patient acknowledges shortness of breath and chest discomfort. Pt denies fever, chills, CP, palpitations, NVD, Trauma, unilateral leg swelling, calf pain, hemoptysis, prolonged travel/immobility, Individual/Family history of DVT/PE/Blood Clotting Disorders. On admission the patient was seen by nephrology and proceeded to have a dialysis done with re markable improvement in symptomatology. We did have an extensive discussion about tobacco cessation the patient verbalized understanding. He also complained of atypical chest pain on presentation although this also resolved and is felt secondary to volume overload which is agreed by nephrology nevertheless considering his risk factors a cardiology evaluation was recommended with a stress test the patient initially agreeable to stay for stress test then wanted to be discharged to follow up outpatient I did discuss with him about avoiding any strenuous activity until he is seen by cardiology a nd recommendation was also. He is stable at this point for discharge. The patient also reported that he believes this happened because he drank more fluids than recommended. Also a few bottles of alcohol which counseling was provided. (1) ESRD needing dialysis (2) Nicotine dependence unspecified, with withdrawal (3) HTN (hypertension) (4) Atypical Chest pain Likely secondary to fluid overload from ESRD (5) Thrombocytopenia Monitor. Likely due to underlying ESRD. No bleeding noted Disposition: TO HOME OR SELFCARE Time spent for discharge: 35 MINS Core Measure Documentation - Palliative Care Palliative Care/ Comfort Measures: Not Applicable - Core Measures Any of the following diagnoses?: none Exam - Physical Exam Narrative exam: VITAL SIGNS: Reviewed. GENERAL: The patient appeared well nourished and normally developed. Vital signs as documented. HEAD: No signs of head trauma. EYES: Pupils are equal. Extraocular motions intact. EARS: Hearing grossly intact. MOUTH: Oropharynx is normal. NECK: No adenopathy, no JVD. CHEST: Chest with clear breath sounds bilaterally. No wheezes, rales, or rhonchi. CARDIAC: Regular rate and rhythm. S1 and S2, without murmurs, gallops, or rubs. VASCULAR: Right upper extremity fistula. Peripheral pulses normal and equal in all extremities. ABDOMEN: Soft, without detectable tenderness. No sign of distention. No rebound or guarding, and no masses palpated. Bowel Sounds normal. MUSCULOSKELETAL: Good range of motion of all major joints. Extremities without clubbing, cyanosis or edema. NEUROLOGIC EXAM: Alert and oriented x 3. No focal sensory or strength deficits. Speech normal. Follows commands. PSYCHIATRIC: Mood normal. SKIN: No rash or lesions. - Constitutional Vitals: Temp Pulse Resp BP Pulse Ox 98.5 F 74 20 117/73 96 09/17/18 11:41 09/17/18 11:41 09/17/18 11:41 09/17/18 13:01 09/17/18 11:41 Plan Activity: advance as tolerated, fall precautions Diet: low salt, renal Special Instructions: restrict fluid intake to ([place] nephrology recommendation), record daily BP diary, smoking cessation Follow up with: SUSY COLE MD [Primary Care Provider] - 3-5 Days JOSEPH QUIROZ MD [Staff Physician] - 7 Days MARTIN TOMAS MD [Staff Physician] - 7 Days
--- NOTE | 2018-09-17 16:28 | Progress Note ---
Assessment and Plan 1. Volume overload with respiratory distress: S/p UF with HD yesterday. Volume status is better. Fluid compliance encouraged. 2. Hyperkalemia: Improved. 3. ESRD: Continue hemodialysis three times a week. 4. HTN. Subjective Date of service: 09/17/18 Interval history: Patient is feeling better. Objective - Vital Signs Vital signs: Vital Signs - 12hr 09/17/18 09/17/18 09/17/18 05:35 10:31 11:41 Temperature 98.0 F 98.5 F Pulse Rate 73 74 Respiratory 18 20 Rate Blood Pressure 126/78 132/79 128/83 O2 Sat by Pulse 92 96 Oximetry 09/17/18 13:01 Temperature Pulse Rate Respiratory Rate Blood Pressure 117/73 O2 Sat by Pulse Oximetry - General Appearance General appearance: well-developed, well-nourished, appears stated age, other (not in distress) EENT: ATNC, PERRL, mucous membranes moist, hearing intact, vision intact Neck: supple Respiratory: Present: Clear to Ascultation Cardiology: regular, S1S2, no murmurs Gastrointestinal: normoactive bowel sounds, no tenderness, no distended Integumentary: no rash, warm and dry Neurologic: no focal deficit, no asterixis, alert and oriented x3 Musculoskeletal: other (right arm AVF, no edema) Psychiatric: cooperative - Lab 09/16/18 11:45 09/17/18 09:45 Most recent lab results Calcium 7.8 mg/dL (8.4-10.2) L 09/17/18 09:45 Medications & Allergies - Medications Allergies/Adverse Reactions: Allergies No Known Allergies Allergy (Verified 10/21/17 14:47) Home Medications: Home Medications Medication Instructions Recorded Confirmed Last Taken Type Carvedilol [Coreg] 25 mg PO DAILY 02/11/17 09/16/18 09/16/18 History Cinacalcet [Sensipar] 30 mg PO DAILY 02/11/17 09/16/18 09/16/18 History Hydralazine HCl [Apresoline TAB] 50 mg PO QDAY 02/11/17 09/16/18 09/16/18 History Lisinopril [Zestril] 40 mg PO DAILY 02/11/17 09/16/18 09/16/18 History Pravastatin Sodium [Pravastatin] 40 mg PO DAILY 02/11/17 09/16/18 09/16/18 History Sevelamer Carbonate [Renvela] 800 mg PO DAILY 02/11/17 09/16/18 09/16/18 History amLODIPine [Norvasc] 10 mg PO DAILY 09/16/18 09/16/18 09/16/18 History Dicyclomine [Bentyl] 40 mg PO QID tablet 09/17/18 Unknown Rx Diphenoxylate/Atropine [Lomotil] 1 tab PO BID PRN tablet 09/17/18 Unknown Rx NIFEdipine XL [Procardia Xl] 60 mg PO Q12HR tablet 09/17/18 Unknown Rx Active Medications: Generic Name Dose Route Start Last Admin Trade Name Freq PRN Reason Stop Dose Admin Acetaminophen 650 mg 09/16/18 13:14 Tylenol PO Q4H PRN Pain MILD(1-3)/Fever >100.5/OLIVAS Amlodipine Besylate 10 mg 09/17/18 10:00 09/17/18 10:31 Norvasc PO 10 mg DAILY DANITA Administration Carvedilol 25 mg 09/17/18 10:00 09/17/18 10:31 Coreg PO 25 mg DAILY DANITA Administration Cinacalcet 30 mg 09/16/18 18:00 09/16/18 20:03 Sensipar PO 30 mg QPM DANITA Administration Dicyclomine HCl 40 mg 09/16/18 14:00 09/17/18 13:01 Bentyl PO 40 mg QID DANITA Administration Diphenoxylate HCl/Atropine 1 tab 09/16/18 13:28 Lomotil PO BID PRN Diarrhea Hydralazine HCl 50 mg 09/16/18 14:00 09/17/18 13:01 Apresoline PO 50 mg Q8HR DANITA Administration Sodium Chloride 100 mls @ 999 mls/hr 09/16/18 14:56 Nacl 0.9% IV ALISSA PRN Hypotension Lisinopril 40 mg 09/17/18 10:00 09/17/18 10:31 Zestril PO 40 mg DAILY DANITA Administration Nifedipine 60 mg 09/16/18 22:00 09/17/18 10:30 Procardia Xl PO 60 mg Q12HR DANITA Administration Ondansetron HCl 4 mg 09/16/18 13:14 Zofran IV Q8H PRN Nausea And Vomiting Pravastatin Sodium 40 mg 09/16/18 22:00 09/16/18 21:42 Pravachol PO 40 mg QHS [facility]AN[facility] Administration Sevelamer Carbonate 800 mg 09/16/18 17:00 09/17/18 12:56 Renvela PO 800 mg TIDWM DANITA Administration Sodium Chloride 10 ml 09/16/18 22:00 09/17/18 10:31 Sodium Chloride Flush Syringe 10 Ml IV 10 ml BID DANITA Administration Sodium Chloride 10 ml 09/16/18 13:14 Sodium Chloride Flush Syringe 10 Ml IV PRN PRN LINE FLUSH
== END 2018-09-17 16:15 | disposition home or self-care (01) | DRG 640 ==
LOC: ED 10:45 → 3A 13:14
PROVIDERS: ADMIT Internal Medicine; ATTEND Internal Medicine
PROC: 5A1D70Z Performance of Urinary Filtration, Intermittent, Less than 6 Hours Per Day (ICD-10-PCS; principal; 2018-09-16)
DX: E87.70 Fluid overload, unspecified (principal); N18.6 End stage renal disease; F17.203 Nicotine dependence unspecified, with withdrawal; I13.2 Hypertensive heart and chronic kidney disease with heart failure and with stage 5 chronic kidney disease, or end stage renal disease; E87.2 Acidosis; R07.89 Other chest pain; D47.3 Essential (hemorrhagic) thrombocythemia; E87.5 Hyperkalemia; R06.03 Acute respiratory distress; I50.9 Heart failure, unspecified; Z79.899 Other long term (current) drug therapy; Z71.6 Tobacco abuse counseling; Z82.49 Family history of ischemic heart disease and other diseases of the circulatory system
CPT/HCPCS: 36415; 71045; 80048; 80074; 82550; 82553; 84484; 85025; 93005; 93010; 96374; 96375; G0378; A9270-GY; J0610; J1815; J2405

== ENCOUNTER 2018-11-06 15:07 | Emergency (ER) | payer MEDICARE ==
[2018-11-06 15:16] VITALS: BP 174/102
--- NOTE | 2018-11-06 15:17 | Emergency Department Report ---
Blank Doc - Documentation Documentation: comes in for bulging at navel area time 2 months with 2 weeks of pain. No pain now. Did not go to Dialysis today. Has not taken anything for pain. Hernia is reducible. This initial assessment diagnostic orders/clinical plan/treatment (s) is/Are subject change based on patient's health status, clinical progression and re- assessment by fellow clinical providers in the ED. Further treatment and work-up at subsequent clinical providers discretion. Patient/guardians urged not to elope from their condition may be serious if not clinically assessed and managed. Initial order include:
[2018-11-06] MEDS ORDERED: ALUM-MAG HYDROX-SIMETH 200-200-20MG/5ML PO ONE (17:34)
[2018-11-06] MEDS ORDERED: IBUPROFEN PO ONE (17:34)
--- NOTE | 2018-11-06 17:41 | Emergency Department Report ---
ED Abdominal Pain HPI - General Chief Complaint: Abdominal Pain Stated Complaint: STOMACH PAIN Time Seen by Provider: 11/06/18 15:13 Source: patient Mode of arrival: Ambulatory Limitations: No Limitations - History of Present Illness Initial Comments: This is a 53-year-old male who presents to ED complaining of protrusion on his umbilical region. Patient states that his noticed it there for about a month and a half. Patient states that the doesn't cause him in a little bit of discomfort. He denies nausea or vomiting chest pain shortness of breath dizziness or any other symptoms. Patient is able to eat meals regularly. Severity scale (0 -10): 0 - Related Data Home Medications Medication Instructions Recorded Confirmed Last Taken Carvedilol [Coreg] 25 mg PO DAILY 02/11/17 09/16/18 09/16/18 Cinacalcet [Sensipar] 30 mg PO DAILY 02/11/17 09/16/18 09/16/18 Hydralazine HCl [Apresoline TAB] 50 mg PO QDAY 02/11/17 09/16/18 09/16/18 Lisinopril [Zestril] 40 mg PO DAILY 02/11/17 09/16/18 09/16/18 Pravastatin Sodium [Pravastatin] 40 mg PO DAILY 02/11/17 09/16/18 09/16/18 Sevelamer Carbonate [Renvela] 800 mg PO DAILY 02/11/17 09/16/18 09/16/18 amLODIPine [Norvasc] 10 mg PO DAILY 09/16/18 09/16/18 09/16/18 Previous Rx's Medication Instructions Recorded Last Taken Type Diphenoxylate/Atropine [Lomotil] 1 tab PO BID PRN tablet 09/17/18 Unknown Rx NIFEdipine XL [Procardia Xl] 60 mg PO Q12HR tablet 09/17/18 Unknown Rx Antacid [Alum-Mag Hydrox-Simeth 15 ml PO TID #120 ml 11/06/18 Unknown Rx [id number]/5Ml] Dicyclomine [Bentyl] 20 mg PO TID #30 tablet 11/06/18 Unknown Rx Ondansetron [Zofran ODT TAB] 8 mg PO Q12HR #30 tab.rapdis 11/06/18 Unknown Rx Allergies Allergy/AdvReac Type Severity Reaction Status Date / Time No Known Allergies Allergy Verified 10/21/17 14:47 ED Review of Systems ROS: Stated complaint: STOMACH PAIN Other details as noted in HPI Comment: All other systems reviewed and negative ED Past Medical Hx - Past Medical History Hx Hypertension: Yes Hx Renal Disease: Yes Additional medical history: dialysis pt,[facility] - Surgical History Additional Surgical History: martín CONCEPCION - Social History Smoking Status: Never Smoker Substance Use Type: Alcohol - Medications Home Medications: Home Medications Medication Instructions Recorded Confirmed Last Taken Type Carvedilol [Coreg] 25 mg PO DAILY 02/11/17 09/16/18 09/16/18 History Cinacalcet [Sensipar] 30 mg PO DAILY 02/11/17 09/16/18 09/16/18 History Hydralazine HCl [Apresoline TAB] 50 mg PO QDAY 02/11/17 09/16/18 09/16/18 History Lisinopril [Zestril] 40 mg PO DAILY 02/11/17 09/16/18 09/16/18 History Pravastatin Sodium [Pravastatin] 40 mg PO DAILY 02/11/17 09/16/18 09/16/18 History Sevelamer Carbonate [Renvela] 800 mg PO DAILY 02/11/17 09/16/18 09/16/18 History amLODIPine [Norvasc] 10 mg PO DAILY 09/16/18 09/16/18 09/16/18 History Diphenoxylate/Atropine [Lomotil] 1 tab PO BID PRN tablet 09/17/18 Unknown Rx NIFEdipine XL [Procardia Xl] 60 mg PO Q12HR tablet 09/17/18 Unknown Rx Antacid [Alum-Mag Hydrox-Simeth 15 ml PO TID #120 ml 11/06/18 Unknown Rx [id number]/5Ml] Dicyclomine [Bentyl] 20 mg PO TID #30 tablet 11/06/18 Unknown Rx Ondansetron [Zofran ODT TAB] 8 mg PO Q12HR #30 tab.rapdis 11/06/18 Unknown Rx ED Physical Exam - General Limitations: No Limitations General appearance: alert, in no apparent distress - Head Head exam: Present: atraumatic, normocephalic - Eye Eye exam: Present: normal appearance - ENT ENT exam: Present: mucous membranes moist - Neck Neck exam: Present: normal inspection - Respiratory Respiratory exam: Present: normal lung sounds bilaterally. Absent: respiratory distress - Cardiovascular Cardiovascular Exam: Present: regular rate, normal rhythm. Absent: systolic murmur, diastolic murmur, rubs, gallop - GI/Abdominal GI/Abdominal exam: Present: soft, normal bowel sounds, hernia (reducible at the umbilical region nontender to palpation). Absent: distended, tenderness, guarding, rebound - Rectal Rectal exam: Present: deferred - Extremities Exam Extremities exam: Present: normal inspection - Back Exam Back exam: Present: normal inspection - Neurological Exam Neurological exam: Present: alert, oriented X3 - Psychiatric Psychiatric exam: Present: normal affect, normal mood - Skin Skin exam: Present: warm, dry, intact, normal color. Absent: rash ED Course Vital Signs 11/06/18 15:14 Temperature 98.6 F Pulse Rate 74 Respiratory 18 Rate Blood Pressure 174/102 O2 Sat by Pulse 98 Oximetry ED Medical Decision Making - Medical Decision Making 53-year-old male presents to umbilical hernia Status as a normal patient is not in any distress. Umbilical hernia is reducible. Discussed the follow up with [facility]. Patient was sent instructions and states he will follow-up. Critical care attestation.: If time is entered above; I have spent that time in minutes in the direct care of this critically ill patient, excluding procedure time. ED Disposition Clinical Impression: Umbilical hernia without obstruction and without gangrene Disposition: DC-01 TO HOME OR SELFCARE Is pt being admited?: No Does the pt Need Aspirin: No Condition: Stable Instructions: Umbilical Hernia (ED) Additional Instructions: Make sure to follow up with the primary care physician as discussed. Take all your medications as you've been prescribed. If you have any worsening symptoms or develop new symptoms please return to ED immediately. Prescriptions: Antacid [Alum-Mag Hydrox-Simeth [id number]/5Ml] 15 ml PO TID #120 ml Dicyclomine [Bentyl] 20 mg PO TID #30 tablet Ondansetron [Zofran ODT TAB] 8 mg PO Q12HR #30 tab.rapdis Referrals: HOMAR CARRERA MD [Primary Care Provider] - 3-5 Days [facility] [Provider Group] - 3-5 Days [facility] [Provider Group] - 3-5 Days [facility] [Provider Group] - 3-5 Days Forms: Accompanied Note, Work/School Release Form(ED) Time of Disposition: 17:49
== END 2018-11-06 18:07 | disposition home or self-care (01) ==
LOC: ED 15:07
DX: K42.9 Umbilical hernia without obstruction or gangrene (principal); I10 Essential (primary) hypertension; Z79.899 Other long term (current) drug therapy
CPT/HCPCS: 99282

== ENCOUNTER 2019-01-01 08:34 | Day surgery (SDC) | payer MEDICARE ==
[~2019-01-01 08:34] MED LIST: ANCEF/STERILE WATER 2 GM/20 ML 2 GM/20 ML SYRINGE IV NR; ceFAZolin 2 GM in NACL 0.9% 100 ML IV ONE
[2019-01-01] MEDS ORDERED: DECADRON IV NR (09:11)
[2019-01-01] MEDS ORDERED: NEURONTIN PO NR (09:13)
[2019-01-01] MEDS ORDERED: NACL 0.9% 1000 ML 1,000 ML IV SCH (09:14)
[2019-01-01] MEDS ORDERED: XYLOCAINE 1% 20 mL ONE (09:23)
[2019-01-01] MEDS ORDERED: MARCAINE 0.5% INFILTRATI ONE ×2 (09:23)
[2019-01-01] MEDS ORDERED: SUBLIMAZE ONE (09:59)
[2019-01-01] MEDS ORDERED: ZEMURON IV ONE (09:59)
[2019-01-01] MEDS ORDERED: XYLOCAINE MPF 2% ONE (09:59)
[2019-01-01] MEDS ORDERED: VERSED IV NR (10:00)
[2019-01-01] MEDS ORDERED: PEPCID IV NR (10:00)
[2019-01-01] MEDS ORDERED: DIPRIVAN 10 MG/ML IV ONE (10:00)
--- NOTE | 2019-01-01 10:51 | Anesthesia Day of Surgery ---
Anesthesia Day of Surgery - Day of Surgery Patient Examined: Yes Patient H&P Reviewed: Yes Patient is NPO: Yes Beta Blockers: Yes
--- NOTE | 2019-01-01 10:52 | Anesthesia Consultation ---
Anesthesia Consult and Med Hx Date of service: 01/01/19 - Airway Anesthetic Teeth Evaluation: Good ROM Head & Neck: Adequate Mental/Hyoid Distance: Adequate Mallampati Class: Class III Intubation Access Assessment: Good - Pulmonary Exam CTA: Yes - Cardiac Exam Cardiac Exam: No Murmur - Pre-Operative Health Status ASA Pre-Surgery Classification: ASA4 Proposed Anesthetic Plan: General - Pulmonary Hx Smoking: Yes (SINCE AGE 35; QUIT IN 2011) SOB: Yes (WITH EXERTION) COPD: Yes (STATES HE BELIEVES HE IS) Hx Sleep Apnea: No (not diagnoised- pt screens as high risk) - Cardiovascular System Hx Hypertension: Yes (2011) - Central Nervous System Hx Back Pain: Yes Hx Psychiatric Problems: No - Endocrine Hx Renal Disease: Yes Hx End Stage Renal Disease: Yes - Other Systems Hx Alcohol Use: Yes (O[facility]) Hx Substance Use: No Hx Cancer: No
[2019-01-01] MEDS ORDERED: DECADRON ONE (11:56)
[2019-01-01] MEDS ORDERED: ZOFRAN ONE (13:59)
[2019-01-01] MEDS ORDERED: BLOXIVERZ ONE (13:59)
[2019-01-01] MEDS ORDERED: ROBINUL ONE (13:59)
[2019-01-01] MEDS ORDERED: NACL 0.9% IR ONE (14:00)
[2019-01-01] MEDS ORDERED: WATER FOR IRRIG STERILE IR ONE (14:00)
--- NOTE | 2019-01-01 14:06 | Short Stay Summary ---
Short Stay Documentation Date of service: 01/01/19 - History Principal diagnosis: bilateral inguinal hernias, ventral hernia - Allergies and Medications Current Medications: Allergies No Known Allergies Allergy (Verified 12/29/18 17:43) Home Medications Medication Instructions Recorded Confirmed Last Taken Type Carvedilol [Coreg] 25 mg PO DAILY 02/11/17 12/29/18 09/16/18 History Cinacalcet [Sensipar] 30 mg PO QAM 02/11/17 12/29/18 09/16/18 History Hydralazine HCl [Apresoline TAB] 50 mg PO TID 02/11/17 12/29/18 09/16/18 History Lisinopril [Zestril] 40 mg PO DAILY 02/11/17 12/29/18 09/16/18 History Pravastatin Sodium [Pravastatin] 40 mg PO DAILY 02/11/17 12/29/18 09/16/18 History Sevelamer Carbonate [Renvela] 800 mg PO QAC 02/11/17 09/16/18 09/16/18 History amLODIPine [Norvasc] 10 mg PO DAILY 09/16/18 12/29/18 09/16/18 History Active Medications Cefazolin Sodium (Ancef/Sterile Water 2 Gm/20 Ml) 2 gm in 20 mls @ 80 mls/hr IV PREOP NR Stop: 01/01/19 16:00 Sodium Chloride (Nacl 0.9% 1000 Ml) 1,000 mls @ 100 mls/hr IV DIRECT DANITA Last Admin: 01/01/19 09:35 Dose: 100 mls/hr Documented by: Midazolam HCl (Versed) 2 mg IV PREOP NR Stop: 01/01/19 23:59 Last Admin: 01/01/19 10:30 Dose: 2 mg Documented by: - Brief post op/procedure progress note Date of procedure: 01/01/19 Pre-op diagnosis: bilateral inguinal hernias, ventral hernia Post-op diagnosis: same Procedure: robotic assisted ventral hernia repair with mesh, bilateral inguinal hernia repair with mesh Anesthesia: GETA, local (JOHN block) Findings: Large bilateral inguinal direct defects, R>L 2 cm Ventral hernia with preperitoneal fat Surgeon: MARCI MARTINES Estimated blood loss: minimal Pathology: none Condition: stable - Hospital course Hospital course: Pt observed in PACU and discharged home in stable condition - Disposition Condition at discharge: Good Disposition: DC-01 TO HOME OR SELFCARE Short Stay Discharge Plan Activity: other (SEE PRINTED DISCHARGE INSTRUCTIONS) Diet: regular Wound: open to air, per your surgeon's advice Additional Instructions: SEE PRINTED DISCHARGE INSTRUCTIONS [facility]Primary Care [facility] - 7 Days MARCI MARTINES DO [Staff Physician] - 14 Days Prescriptions: Ibuprofen 800 mg PO Q8HR PRN #30 tablet PRN Reason: Pain, Moderate (4-6) oxyCODONE /ACETAMINOPHEN [Percocet 5/325] 1 tab PO Q4HR PRN #30 tab PRN Reason: PAIN
[2019-01-01 17:15] VITALS: BP 133/79
--- NOTE | 2019-01-06 10:50 | Operative Report ---
PREOPERATIVE DIAGNOSES: Bilateral inguinal hernia, ventral hernia. POSTOPERATIVE DIAGNOSES: Bilateral inguinal hernia, ventral hernia. PROCEDURE: Robotic-assisted preperitoneal ventral hernia repair with mesh, bilateral inguinal hernia repair with mesh. ANESTHESIA: General endotracheal anesthesia, JOHN block. FINDINGS: 1. Large bilateral inguinal hernia direct defect, right greater than left. 2. Two centimeter ventral hernia with preperitoneal fat. SURGEON: Daphne New DO [employer] VICE PRESIDENT: Morelia Krueger. ESTIMATED BLOOD LOSS: Minimal. PATHOLOGY: None. CONDITION AND DISPOSITION: Stable to PACU. HISTORY OF PRESENT ILLNESS AND INDICATIONS: The patient is a 53-year-old male, who was seen in the surgery clinic with complaints of pain in his right groin. He was referred by his primary care doctor for evaluation of a hernia. On exam, the patient was found to have bilateral inguinal hernias and a ventral hernia, all of which were reducible. It was recommended that all three hernias be repaired at the same time. All risks, benefits, and alternatives to surgery were discussed with the patient. The robotic, laparoscopic, and open approaches were all discussed and explained. The patient's questions were answered and consent obtained. PROCEDURE IN DETAIL: The patient was identified in the preoperative area and taken back to the operating room and placed on the operating table in supine position. After anesthesia was induced, a López catheter was sterilely placed by the circulating nurse. Both arms were tucked and all bony prominences padded. The patient's abdomen and bilateral groins were then prepped and draped in the usual sterile fashion. A time-out performed. Veress needle was inserted at the umbilicus and position was confirmed using the saline drop test, the abdomen was insufflated to 15 mmHg. A 5 mm left upper quadrant Optiview trocar was then placed under direct visualization. The abdomen was inspected and there was no underlying injury to any of the abdominal contents. The Veress needle was identified and removed. An additional epigastric 12-mm balloon trocar was then placed under direct visualization and an 8 mm right upper quadrant robotic trocar. The 5 mm trocar in the left upper quadrant was replaced with an 8 mm robotic trocar. The abdomen was inspected. There was a visible supraumbilical hernia as well as bilateral inguinal hernias. The patient was placed in a slight Trendelenburg position and the robot docked. A fenestrated bipolar grasper was placed in arm #2 and a monopolar scissors in arm #1. The surgeon was then transferred to the console. First, attention was directed towards the ventral hernia. Approximately 4-5 cm from the superior edge of the defect, a preperitoneal flap was created. This was created using a combination of cautery and blunt dissection. Once the hernia sac was encountered, it was completely reduced and a moderate amount of preperitoneal fat was reduced from the hernia. Once the entire hernia sac was freed from the surrounding tissue, the inferior portion of the flap was developed in order to accommodate the mesh. The hernia defect measured approximately 2 cm and a 9 cm Bard flat mesh was used to fix the defect. The mesh as well as suture material was placed into the abdomen. The hernia defect was closed using a 0 V-Loc running suture. The pocket was inspected for hemostasis which was carefully achieved. The mesh was then placed into the preperitoneal pocket and centered. The mesh was then fixated inferiorly and superiorly using 0 Vicryl interrupted stitches. The peritoneal flap was then closed over the mesh using a 3-0 V-Loc running suture. The entire mesh was covered. I turned my attention to fixing the inguinal hernias. I first started on the left side. A preperitoneal flap was created approximately 6 cm from the inguinal ring. This was done using combination of electrocautery and blunt dissection. The lateral space was first created and then the medial space. The peritoneal incision was carried out past the midline through the medial umbilical ligament. The pubic tubercle and Jeffrey's ligament were identified and cleared bluntly of overlying tissue. The vein overlying the pubic tubercle was cauterized. There was a large direct defect and the hernia sac was slowly and meticulously dissected free from the surrounding tissue and completely reduced. Once the dissection was deemed adequate, the pocket was checked for hemostasis which was carefully ensured. I then turned my attention to the right inguinal hernia. The peritoneal incision was extended from the left all the way to the right ASIS. The preperitoneal flap and dissection was performed in the similar fashion to the left side. There was a direct defect on this side as well. The peritoneum was carefully dissected from the surrounding tissue using a combination of blunt dissection and electrocautery. The medial dissection and lateral dissection were all done in a similar fashion to the left side. Once the peritoneal dissection was deemed adequate and the hernia contents were reduced, the pocket was checked for hemostasis, this was carefully ensured. The vas deferens and cord structures were identified and protected during the entirety of the dissection on both sides. At this point, there was one large peritoneal flap and the decision was made to use two large 3DMax meshes one for the right and one for the left respectively. Both meshes were positioned in the preperitoneal pocket in the usual fashion and sutured to the pubic tubercle in the midline using a 0 Vicryl interrupted suture. Each mesh was then secured in the lateral anterior abdominal wall using 0 Vicryl interrupted suture. The mesh was tucked under the peritoneum and the preperitoneal flap was then closed in a continuous running fashion using a 3-0 V-Loc suture. Prior to closure, a 16-Lao Angiocath was inserted in the midline into the preperitoneal pocket from the outside. This was used in order to evacuate air from the pocket. The abdomen was slowly desufflated and the mesh was seen to lay behind the peritoneum and no mesh was exposed to the bowel. The preperitoneal pocket was evacuated of air. The 12 mm port was then removed and the fascia closed using 0 Vicryl interrupted suture using the Robert-Natali device. The 8 mm robotic ports were then removed and the abdomen desufflated and the preperitoneal pocket evacuated of pneumoperitoneum. The Angiocath was then removed. The skin incisions were closed with 4-0 Monocryl subcuticular stitches and skin glue. The López catheter was removed and both testicles were palpated and in anatomic position. The patient was awoken from anesthesia, extubated, and taken to PACU in stable condition. At the end of the case, all sponge, instrument, sharp counts were correct x 2. JOB# [id number] JAKE/ROBERT JOYNER
== END 2019-01-01 08:35 | disposition home or self-care (01) ==
LOC: OR 08:34
PROVIDERS: ATTEND Surgery
DX: K40.20 Bilateral inguinal hernia, without obstruction or gangrene, not specified as recurrent (principal); K43.9 Ventral hernia without obstruction or gangrene; I13.2 Hypertensive heart and chronic kidney disease with heart failure and with stage 5 chronic kidney disease, or end stage renal disease; N18.6 End stage renal disease; I50.9 Heart failure, unspecified; F17.203 Nicotine dependence unspecified, with withdrawal; E78.00 Pure hypercholesterolemia, unspecified; J44.9 Chronic obstructive pulmonary disease, unspecified; Z99.2 Dependence on renal dialysis; Z87.442 Personal history of urinary calculi; Z72.89 Other problems related to lifestyle; Z98.890 Other specified postprocedural states; Z79.899 Other long term (current) drug therapy
CPT/HCPCS: 49650; 49652; 64450; 82803; C1781; J0690; J1100; J2250; J2405; J2704; J2710; J3010; J7030

== ENCOUNTER 2019-03-22 15:04 | Inpatient (IN) | payer MEDICARE ==
--- NOTE | 2019-03-22 15:39 | Event Note ---
ED Screening Note Date of service: 03/22/19 Time: 15:36 ED Screening Note: 53 y/o male comes in for wanting dialysis. Missed dialysis. This initial assessment/diagnostic orders/clinical plan/treatment(s) is/are subject to change based on patients health status, clinical progression and re-assessment by fellow clinical providers in the ED. Further treatment and workup at subsequent clinical providers discretion. Patient/guardian urged not to elope from the ED as their condition may be serious if not clinically assessed and managed. Initial orders include:
[2019-03-22 15:56] LABS: Basophils % (Auto) 0.9 % (0.0-1.8); Eosinophils # (Auto) 0.7 K/mm3 (0.0-0.4); Eosinophils % (Auto) 13.2 % (0.0-4.3); Hematocrit 34.9 % (35.5-45.6); Hemoglobin 11.8 gm/dl (11.8-15.2); Lymphocytes # (Auto) 0.8 K/mm3 (1.2-5.4); Lymphocytes % (Auto) 14.6 % (13.4-35.0); Mean Corpuscular HGB Conc 34 % (32-34); Mean Corpuscular Volume 88 fl (84-94); Monocytes # (Auto) 0.7 K/mm3 (0.0-0.8); Monocytes % (Auto) 12.7 % (0.0-7.3); Platelet Count 106 K/mm3 (140-440); Red Blood Count 3.95 M/mm3 (3.65-5.03); Red Cell Distribution Width 15.6 % (13.2-15.2)
[2019-03-22 16:21] LABS: Calcium 9.6 mg/dL (8.4-10.2)
[2019-03-22] MEDS ORDERED: KIONEX PO ONE (18:43)
[2019-03-22] MEDS ORDERED: PROVENTIL IH PRN (18:44)
[2019-03-22] MEDS ORDERED: TYLENOL PO PRN (18:44)
[2019-03-22] MEDS ORDERED: ZOFRAN IV PRN (18:44)
[2019-03-22] MEDS ORDERED: SODIUM CHLORIDE FLUSH SYRINGE 10 ML IV PRN (18:44)
--- NOTE | 2019-03-22 18:45 | Emergency Department Report ---
ED General Adult HPI - General Chief complaint: Medical Clearance Stated complaint: NEED DIALYSIS Time Seen by Provider: 03/22/19 15:33 Source: patient Mode of arrival: Ambulatory Limitations: No Limitations - History of Present Illness Initial comments: Patient is a 53-year-old -[place] female with history of end-stage renal disease dialysis Saturday has missed last 3 appointments patient denies chest pain no nausea vomiting no shortness of breath patient states he missed dialysis as he was incarcerated was released today Onset/Timin -: days(s) Radiation: non-radiation Severity scale (0 -10): 4 Improves with: none Worsens with: none Associated Symptoms: denies other symptoms - Related Data Home Medications Medication Instructions Recorded Confirmed Last Taken Carvedilol [Coreg] 25 mg PO DAILY 02/11/17 12/29/18 09/16/18 Cinacalcet [Sensipar] 30 mg PO QAM 02/11/17 12/29/18 09/16/18 Hydralazine HCl [Apresoline TAB] 50 mg PO TID 02/11/17 12/29/18 09/16/18 Lisinopril [Zestril] 40 mg PO DAILY 02/11/17 12/29/18 09/16/18 Pravastatin Sodium [Pravastatin] 40 mg PO DAILY 02/11/17 12/29/18 09/16/18 Sevelamer Carbonate [Renvela] 800 mg PO QAC 02/11/17 09/16/18 09/16/18 amLODIPine [Norvasc] 10 mg PO DAILY 09/16/18 12/29/18 09/16/18 Previous Rx's Medication Instructions Recorded Last Taken Type Ibuprofen [Ibuprofen 800] 800 mg PO Q8HR PRN #30 tablet 01/01/19 Unknown Rx oxyCODONE /ACETAMINOPHEN [Percocet 1 tab PO Q4HR PRN #30 tab 01/01/19 Unknown Rx 5/325] Allergies Allergy/AdvReac Type Severity Reaction Status Date / Time No Known Allergies Allergy Verified 12/29/18 17:43 ED Review of Systems ROS: Stated complaint: NEED DIALYSIS Other details as noted in HPI Constitutional: denies: chills, fever Eyes: denies: eye pain, eye discharge, vision change ENT: denies: ear pain, throat pain Respiratory: cough. denies: shortness of breath, wheezing Cardiovascular: denies: chest pain, palpitations Endocrine: no symptoms reported Gastrointestinal: denies: abdominal pain, nausea, diarrhea Genitourinary: denies: urgency, dysuria Musculoskeletal: myalgia Skin: denies: rash, lesions Neurological: denies: headache, weakness, paresthesias Psychiatric: denies: anxiety, depression Hematological/Lymphatic: denies: easy bleeding, easy bruising ED Past Medical Hx - Past Medical History Hx Hypertension: Yes (2011) Hx Renal Disease: Yes Hx Kidney Stones: Yes (PASSED ON OWN ) Hx COPD: Yes (STATES HE BELIEVES HE IS) Hx HIV: No Additional medical history: dialysis pt,tues,thurs sat - Surgical History Additional Surgical History: martín CONCEPCION - Social History Smoking Status: Current Every Day Smoker Substance Use Type: None - Medications Home Medications: Home Medications Medication Instructions Recorded Confirmed Last Taken Type Carvedilol [Coreg] 25 mg PO DAILY 02/11/17 12/29/18 09/16/18 History Cinacalcet [Sensipar] 30 mg PO QAM 02/11/17 12/29/18 09/16/18 History Hydralazine HCl [Apresoline TAB] 50 mg PO TID 02/11/17 12/29/18 09/16/18 History Lisinopril [Zestril] 40 mg PO DAILY 02/11/17 12/29/18 09/16/18 History Pravastatin Sodium [Pravastatin] 40 mg PO DAILY 02/11/17 12/29/18 09/16/18 History Sevelamer Carbonate [Renvela] 800 mg PO QAC 02/11/17 09/16/18 09/16/18 History amLODIPine [Norvasc] 10 mg PO DAILY 09/16/18 12/29/18 09/16/18 History Ibuprofen [Ibuprofen 800] 800 mg PO Q8HR PRN #30 tablet 01/01/19 Unknown Rx oxyCODONE /ACETAMINOPHEN [Percocet 1 tab PO Q4HR PRN #30 tab 01/01/19 Unknown Rx 5/325] ED Physical Exam - General Limitations: No Limitations General appearance: alert, in no apparent distress - Head Head exam: Present: atraumatic, normocephalic - Eye Eye exam: Present: normal appearance, PERRL, EOMI Pupils: Present: normal accommodation - ENT ENT exam: Present: mucous membranes moist - Neck Neck exam: Present: normal inspection, full ROM. Absent: tenderness, lym phadenopathy - Respiratory Respiratory exam: Present: normal lung sounds bilaterally. Absent: respiratory distress - Cardiovascular Cardiovascular Exam: Present: regular rate, normal rhythm. Absent: systolic murmur, diastolic murmur, rubs, gallop - GI/Abdominal GI/Abdominal exam: Present: soft, normal bowel sounds. Absent: distended, tenderness, guarding, rebound, rigid, bruit, hernia - Rectal Rectal exam: Present: deferred - Extremities Exam Extremities exam: Present: normal inspection - Back Exam Back exam: Present: normal inspection, full ROM. Absent: tenderness, CVA tenderness (R), CVA tenderness (L), rash noted - Neurological Exam Neurological exam: Present: alert, oriented X3, CN II-XII intact, normal gait - Psychiatric Psychiatric exam: Present: normal affect, normal mood - Skin Skin exam: Present: warm, dry, intact, normal color. Absent: rash ED Course Vital Signs 03/22/19 15:36 Temperature 98.3 F Pulse Rate 69 Respiratory 18 Rate Blood Pressure 165/88 O2 Sat by Pulse 96 Oximetry ED Medical Decision Making - Lab Data Result diagrams: 03/22/19 15:39 03/22/19 15:39 - Medical Decision Making plan admit to hospitalist dx hyperkalemis, dialysis problem, I have consulted Nephrology Dr. Zabala will set up dialysis tomorrow, will administer Kayexalate po , pt verbalized agreement and understanding of tx plan pt care hand off to hospitalist at this time. pt with a/o x 3 with nad ambulatory with steady gait. Critical care attestation.: If time is entered above; I have spent that time in minutes in the direct care of this critically ill patient, excluding procedure time. ED Disposition Clinical Impression: Hyperkalemia Dialysis complication Qualifiers: Encounter type: initial encounter Qualified Code(s): T82.9XXA - Unspecified complication of cardiac and vascular prosthetic device, implant and graft, initial encounter Disposition: OP ADMIT IP TO THIS HOSP Is pt being admited?: Yes Does the pt Need Aspirin: No Condition: Stable Referrals: HOMAR CARRERA MD [Primary Care Provider] - 3-5 Days Time of Disposition: 18:52
[2019-03-22] MEDS ORDERED: PERCOCET 5/325 PO PRN (18:46)
[2019-03-22] MEDS ORDERED: KIONEX ONE (18:58)
[2019-03-22] MEDS ORDERED: CALCIUM GLUCONATE 1,000 MG in NACL 0.9% 100 ML IV ONE (18:58)
--- NOTE | 2019-03-22 18:58 | History and Physical Report ---
History of Present Illness Chief complaint: I need dialysis History of present illness: 53 YO Male with ESRD on HD(T,R,Sa), HTN, Nicotine Dependence presents to ED for evaluation. Pt states that he has experienced some shortness of breath over the past 1 week, with worsening symptoms over the past 1 day. Pt states that he was incarcerated and was unable to undergo dialysis, and was subsequently released from custodial today. Pt transported to [facility] via private vehicle. Pt seen and evaluated in ED and found to have ESRD, Hypertnsive Urgency with blood pressure of 191/103,as well as Acidosis, and fluid overload. Pt denies fever, chills, CP, palpitations, NVD, Trauma, unilateral leg swelling, calf pain, hemoptysis, pr olonged travel/immobility, Individual/Family history of DVT/PE/Blood Clotting Disorders. Nephrology consulted in ED. Prior admission on 09/16/18 reviewed. All listed medication reconciled at time of admission. Past History Past Medical History: ESRD, hypertension Past Surgical History: Other (AV fistula placement. ) Social history: single, smoking Family history: hypertension Medications and Allergies Allergies Allergy/AdvReac Type Severity Reaction Status Date / Time No Known Allergies Allergy Verified 12/29/18 17:43 Home Medications Medication Instructions Recorded Confirmed Last Taken Type Carvedilol [Coreg] 25 mg PO DAILY 02/11/17 12/29/18 09/16/18 History Cinacalcet [Sensipar] 30 mg PO QAM 02/11/17 12/29/18 09/16/18 History Hydralazine HCl [Apresoline TAB] 50 mg PO TID 02/11/17 12/29/18 09/16/18 History Lisinopril [Zestril] 40 mg PO DAILY 02/11/17 12/29/18 09/16/18 History Pravastatin Sodium [Pravastatin] 40 mg PO DAILY 02/11/17 12/29/18 09/16/18 History Sevelamer Carbonate [Renvela] 800 mg PO QAC 02/11/17 09/16/18 09/16/18 History amLODIPine [Norvasc] 10 mg PO DAILY 09/16/18 12/29/18 09/16/18 History Ibuprofen [Ibuprofen 800] 800 mg PO Q8HR PRN #30 tablet 01/01/19 Unknown Rx oxyCODONE /ACETAMINOPHEN [Percocet 1 tab PO Q4HR PRN #30 tab 01/01/19 Unknown Rx 5/325] Active Meds: Active Medications Acetaminophen (Tylenol) 650 mg PO Q4H PRN PRN Reason: Pain MILD(1-3)/Fever >100.5/OLIVAS Albuterol (Proventil) 2.5 mg IH Q4HRT PRN PRN Reason: Shortness Of Breath Amlodipine Besylate (Norvasc) 10 mg PO DAILY [facility] Carvedilol (Coreg) 25 mg PO DAILY [facility] Cinacalcet (Sensipar) 30 mg PO QAM [facility] Hydralazine HCl (Apresoline) 50 mg PO TID [facility] Lisinopril (Zestril) 40 mg PO DAILY [facility] Miscellaneous Medication (Pravastatin Sodium [Pravastatin]) 40 mg PO DAILY [facility] Ondansetron HCl (Zofran) 4 mg IV Q8H PRN PRN Reason: Nausea And Vomiting Oxycodone/Acetaminophen (Percocet 5/325) 1 tab PO Q4HR PRN PRN Reason: Pain , Severe (7-10) Pravastatin Sodium (Pravachol) 40 mg PO QHS [facility] Sevelamer Carbonate (Renvela) 800 mg PO QAC [facility] Sodium Chloride (Sodium Chloride Flush Syringe 10 Ml) 10 ml IV BID [facility] Sodium Chloride (Sodium Chloride Flush Syringe 10 Ml) 10 ml IV PRN PRN PRN Reason: LINE FLUSH Review of Systems Constitutional: no weight loss, no weight gain, no fever, no chills Ears, nose, mouth and throat: no ear pain, no ear discharge, no tinnitis, no decreased hearing, no nose pain, no nasal congestion Cardiovascular: shortness of breath, no orthopnea, no palpitations, no rapid/irregular heart beat, no edema, no syncope Respiratory: no cough, no hemoptysis Gastrointestinal: no abdominal pain, no nausea, no diarrhea, no change in bowel habits, no hematemesis Genitourinary Male: no hematuria, no flank pain, no discharge, no urinary frequency, no urinary hesitancy Rectal: no pain, no incontinence, no bleeding Musculoskeletal: no neck stiffness, no neck pain, no shooting arm pain, no arm numbness/tingling, no low back pain, no shooting leg pain Integumentary: no rash, no pruritis, no redness, no sores, no wounds Psychiatric: no anxiety, no memory loss, no sleep disturbances, no insomnia, no hypersomnia, no change in libido Endocrine: no cold intolerance, no heat intolerance, no polyphagia, no excessive thirst, no polydipsia, no polyuria, no excessive sweating Hematologic/Lymphatic: no easy bruising, no easy bleeding, no lymphadenopathy, no lymphedema Allergic/Immunologic: no urticaria, no allergic rhinitis, no persistent infections Exam - Constitutional Vitals: Temp Pulse Resp BP Pulse Ox 98.3 F 69 18 165/88 96 03/22/19 15:36 03/22/19 15:36 03/22/19 15:36 03/22/19 15:36 03/22/19 15:36 General appearance: Present: mild distress - EENT Eyes: Present: PERRL ENT: hearing intact, clear oral mucosa - Neck Neck: Present: supple, normal ROM - Respiratory Respiratory effort: normal Respiratory: bilateral: diminished, rhonchi - Cardiovascular Heart Sounds: Present: S1 & S2. Absent: rub, click - Extremities Extremities: pulses symmetrical, No edema Peripheral Pulses: within normal limits - Abdominal General gastrointestinal: Present: soft, non-tender, non-distended, normal bowel sounds Male genitourinary: Present: normal - Integumentary Integumentary: Present: clear, warm, dry - Musculoskeletal Musculoskeletal: gait normal, strength equal bilaterally - Psychiatric Psychiatric: appropriate mood/affect, intact judgment & insight - Neurologic Neurologic: CNII-XII intact, moves all extremities Results - Labs CBC & Chem 7: 03/22/19 15:39 03/22/19 15:39 Labs: Abnormal lab results 03/22/19 03/22/19 Range/Units 15:39 15:39 Hct 34.9 L (35.5-45.6) % RDW 15.6 H (13.2-15.2) % Plt Count 106 L (140-440) K/mm3 [place] % (Auto) 12.7 H (0.0-7.3) % Eos % (Auto) 13.2 H (0.0-4.3) % Lymph # 0.8 L (1.2-5.4) K/mm3 Eos # 0.7 H (0.0-0.4) K/mm3 Potassium 5.2 H (3.6-5.0) mmol/L Carbon Dioxide 18 L (22-30) mmol/L BUN 88 H (9-20) mg/dL Creatinine 18.8 H (0.8-1.5) mg/dL Glucose 152 H (75-100) mg/dL Assessment and Plan - Patient Problems (1) ESRD (end stage renal disease) Current Visit: Yes Status: Acute Plan to address problem: Nephrology consulted in ED, dialysis as per renal team, strict I/O, avoid nephrotoxic agents, (2) Acidosis Current Visit: Yes Status: Acute Plan to address problem: dialysis, IV bicarbonate, repeat bmp. (3) Hyperkalemia Current Visit: Yes Status: Acute Plan to address problem: Calcium gluconate, kayexelated, dialysis as per renal team. (4) Fluid overload Current Visit: Yes Status: Acute Qualifiers: Hypervolemia type: unspecified Qualified Code(s): E87.70 - Fluid overload, unspecified Plan to address problem: supportive care, chest x ray, pulse oximetry, dialysis as per renal team (5) Hypertensive urgency Current Visit: Yes Status: Acute Plan to address problem: IV hydralazine prn for SBP >155, continue prehospital antihypertensive therapy (6) DVT prophylaxis Current Visit: No Status: Acute Plan to address problem: SCD to BLE while in bed, Pt ambulatory
[2019-03-22] MEDS ORDERED: NON-FORMULARY (Hydralazine Hcl [Apresoline Tab] 50 MG) PO SCH (20:00)
[2019-03-22] MEDS ORDERED: APRESOLINE ONE (20:02)
[2019-03-22] MEDS ORDERED: APRESOLINE IV ONE (20:03)
[2019-03-22] MEDS ORDERED: APRESOLINE IV PRN (20:07)
--- NOTE | 2019-03-22 20:24 | XRay Report ---
CHEST 2 VIEWS INDICATION / CLINICAL INFORMATION: cough. COMPARISON: None available. FINDINGS: SUPPORT DEVICES: None. HEART / MEDIASTINUM: No significant abnormality. LUNGS / PLEURA: Bilateral airspace disease present throughout both lungs. These findings are worrisom e for bilateral airspace pneumonia. Signer Name: Christophe Proctor MD Signed: 03/22/2019 8:19 PM Workstation Name: [id number]
[2019-03-22] MEDS: APRESOLINE PO SCH (23:40)
[2019-03-22] MEDS: SODIUM CHLORIDE FLUSH SYRINGE 10 ML IV SCH (23:48)
[2019-03-23 06:25] LABS: Albumin 4.1 g/dL (3.9-5); Calcium 9.8 mg/dL (8.4-10.2)
[2019-03-23] MEDS: APRESOLINE PO SCH (08:34)
[2019-03-23] MEDS: RENVELA PO SCH ×3 (08:34→16:30)
[2019-03-23] MEDS ORDERED: HEPARIN 10,000 UNITS/10 ML IV PRN ×2 (09:06)
[2019-03-23] MEDS ORDERED: NACL 0.9% 100 ML IV PRN (09:06)
--- NOTE | 2019-03-23 09:08 | Consultation ---
History of Present Illness - Reason for Consult Consult date: 03/23/19 end stage renal disease, hyperkalemia, metabolic acidosis - History of Present Illness The patient is a 53 YO Male who is well known to our service with history significant for ESRD on HD (TTS), HTN and HLD who presented to ED after he missed hemodialysis for almost 2 weeks. Pt states that he was incarcerated and was unable to get dialysis and he was subsequently released from [facility] yesterday. Pt seen and evaluated in ED and found to have ESRD, uncontrolled hypertension Urgency with blood pressure of 191/103, as well as Acidosis and volume overload. Pt states that he has some shortness of breath and dry cough over the past few days. Pt denies fever, chills, phlegm, hemoptysis, CP, N, V, D, abd pain, dizziness or syncope. Nephrology was consulted for further evaluation. Past History Past Medical History: dialysis, ESRD, hypertension, hyperlipidemia Past Surgical History: Other (AV fistula placement. ) Social history: single, smoking Family history: hypertension Medications and Allergies Allergies Allergy/AdvReac Type Severity Reaction Status Date / Time No Known Allergies Allergy Verified 12/29/18 17:43 Home Medications Medication Instructions Recorded Confirmed Last Taken Type Lisinopril [Zestril] 40 mg PO DAILY 02/11/17 12/29/18 09/16/18 History Pravastatin Sodium [Pravastatin] 40 mg PO DAILY 02/11/17 12/29/18 09/16/18 History oxyCODONE /ACETAMINOPHEN [Percocet 1 tab PO Q4HR PRN #30 tab 01/01/19 Unknown Rx 5/325 mg] Carvedilol [Coreg] 25 mg PO BID #60 tablet 03/23/19 Unknown Rx Cinacalcet [Sensipar] 30 mg PO QAM #30 tablet 03/23/19 Unknown Rx Lisinopril [Zestril TAB] 40 mg PO DAILY #30 tablet 03/23/19 Unknown Rx Sevelamer Carbonate [Renvela] 800 mg PO QAC #30 tablet 03/23/19 Unknown Rx amLODIPine [Norvasc] 10 mg PO DAILY #60 tablet 03/23/19 Unknown Rx hydrALAZINE [Apresoline TAB] 75 mg PO TID #180 tablet 03/23/19 Unknown Rx Active Meds: Active Medications Acetaminophen (Tylenol) 650 mg PO Q4H PRN PRN Reason: Pain MILD(1-3)/Fever >100.5/OLIVAS Albuterol (Proventil) 2.5 mg IH Q4HRT PRN PRN Reason: Shortness Of Breath Amlodipine Besylate (Norvasc) 10 mg PO DAILY [facility] Carvedilol (Coreg) 25 mg PO DAILY [facility] Cinacalcet (Sensipar) 30 mg PO QAM [facility] Hydralazine HCl (Apresoline) 50 mg PO TID [facility] Last Admin: 03/23/19 08:34 Dose: 50 mg Documented by: Hydralazine HCl (Apresoline) 10 mg IV Q6H PRN PRN Reason: Hypertension Last Admin: 03/23/19 07:04 Dose: 10 mg Documented by: Lisinopril (Zestril) 40 mg PO DAILY [facility] Miscellaneous Medication (Pravastatin Sodium [Pravastatin]) 40 mg PO DAILY [facility] Ondansetron HCl (Zofran) 4 mg IV Q8H PRN PRN Reason: Nausea And Vomiting Oxycodone/Acetaminophen (Percocet 5/325) 1 tab PO Q4HR PRN PRN Reason: Pain , Severe (7-10) Pravastatin Sodium (Pravachol) 40 mg PO QDAY [facility] Sevelamer Carbonate (Renvela) 800 mg PO QAC [facility] Last Admin: 03/23/19 08:34 Dose: 800 mg Documented by: Sodium Chloride (Sodium Chloride Flush Syringe 10 Ml) 10 ml IV BID [facility] Last Admin: 03/22/19 23:48 Dose: 10 ml Documented by: Sodium Chloride (Sodium Chloride Flush Syringe 10 Ml) 10 ml IV PRN PRN PRN Reason: LINE FLUSH Review of Systems Constitutional: no weight loss, no weight gain, no fever, no chills, no anorexia, no fatigue, no weakness, no poor appetite Ears, nose, mouth and throat: no epistaxis Cardiovascular: edema, shortness of breath, dyspnea on exertion, high blood pressure, leg edema, no chest pain, no orthopnea, no syncope, no lightheadedness, no decreased exercise tolerance Respiratory: cough, shortness of breath, dyspnea on exertion, no excessive sputum, no hemoptysis, no wheezing Gastrointestinal: no abdominal pain, no nausea, no vomiting, no diarrhea Genitourinary Male: no dysuria, no hematuria Rectal: no bleeding Musculoskeletal: no muscle weakness Integumentary: no rash, no wounds, no jaundice Neurological: no paralysis, no weakness, no seizures, no syncope, no convulsions, no aphasia, no change in speech, no change in mentation, no confusion, no memory loss Psychiatric: no memory loss Exam - Vital Signs Vital signs: Vital Signs Temp Pulse Resp BP Pulse Ox 98.3 F 69 18 165/88 96 03/22/19 15:36 03/22/19 15:36 03/22/19 15:36 03/22/19 15:36 03/22/19 15:36 - General Appearance General appearance: well-developed, well-nourished, appears stated age, other (no distress) EENT: ATNC, PERRL, mucous membranes moist, hearing intact, vision intact Neck: Present: neck supple, trachea midline Respiratory: Rales Heart: regular, S1S2, no murmurs Gastrointestinal: Present: normoactive bowel sounds. Absent: tenderness, distended Integumentary: no rash, warm and dry Neurologic: no focal deficit, no asterixis, alert and oriented x3 Musculoskeletal: Present: other (R arm AVF, tarce LE edma noted) Results - Lab Results 03/22/19 15:39 03/23/19 05:38 Most recent lab results Calcium 9.8 mg/dL (8.4-10.2) 03/23/19 05:38 Assessment and Plan 1. ESRD: Patient missed the last 5 sessions of hemodialysis. HD today. His regular schedule is TTS. 2. FEN: Volume overload, 3 lts of UF with HD today as tolerated. Hyperkalemia, Hemodialysis today. Metabolic acidosis, HD today. 3. Uncontrolled HTN: Likely from volume overload. Monitor BP after HD. Advised to limit fluid intake.
[2019-03-23] MEDS: SODIUM CHLORIDE FLUSH SYRINGE 10 ML IV SCH (09:36)
[2019-03-23] MEDS ORDERED: COREG PO SCH (10:00)
[2019-03-23] MEDS ORDERED: PRAVACHOL PO SCH (10:00)
[2019-03-23] MEDS ORDERED: SENSIPAR PO SCH (10:00)
[2019-03-23] MEDS ORDERED: NON-FORMULARY (Pravastatin Sodium [Pravastatin] 40 MG) PO SCH (10:00)
[2019-03-23] MEDS ORDERED: NORVASC PO SCH (10:00)
[2019-03-23] MEDS ORDERED: ZESTRIL PO SCH (10:00)
[2019-03-23 13:06] VITALS: BP 181/100
[2019-03-23] MEDS ORDERED: APRESOLINE PO SCH (14:00)
--- NOTE | 2019-03-23 14:36 | Discharge Summary ---
Providers - Providers Date of Admission: 03/22/19 18:45 Attending physician: CRICKET LEON MD 03/22/19 18:44 Consult to Physician [CONS] Routine Comment: Consulting Provider: JOSEPH QUIROZ Physician Instructions: Reason For Exam: ESRD Consult to Physician [CONS] Stat Comment: done Consulting Provider: JOSEPH QUIROZ Physician Instructions: Reason For Exam: dialysis hyperkalemia Primary care physician: [facility], Hospitalization Reason for admission: ESRD Condition: Stable Hospital course: 53 YO Male with ESRD on HD(T,R,Sa), HTN, Nicotine Dependence presents to ED for evaluation. Pt states that he has experienced some shortness of breath over the past 1 week, with worsening symptoms over the past 1 day. Pt states that he was incarcerated and was unable to undergo dialysis, and was subsequently released from intermediate today. Pt transported to [facility] via private vehicle. Pt seen and evaluated in ED and found to have ESRD, Hypertensive Urgency with blood pressure of 191/103,as well as Acidosis, and fluid overload. Pt denies fever, chills, CP, palpitations, NVD, Trauma, unilateral leg swelling, calf pain, hemoptysis, prolonged travel/immobility, Individual/Family history of DVT/PE/Blood Clotting Disorders. Nephrology consulted in ED. Prior admission on 09/16/18 reviewed. Discussed with cath lab tech, cleared patient to be discharged and follow at the dialysis center. (1) ESRD (end stage renal disease) Patient was restarted on dialysis and advised to continue outpatient on his dialysis days (2) Acidosis Treated with dialysis (3) Hyperkalemia Current Visit: Yes Status: Acute Plan to address problem: Calcium gluconate, kayexelated, dialysis as per renal team. (4) Fluid overload supportive care, chest x ray, pulse oximetry, dialysis as per renal team (5) Hypertensive urgency IV hydralazine prn for SBP >155, continue prehospital antihypertensive therapy Disposition: - TO HOME OR SELFCARE Time spent for discharge: 35 mins Core Measure Documentation - Palliative Care Palliative Care/ Comfort Measures: Not Applicable - Core Measures Any of the following diagnoses?: none Exam - Constitutional Vitals: Temp Pulse Resp BP Pulse Ox 99.0 F 76 22 181/100 97 03/23/19 09:50 03/23/19 14:19 03/23/19 09:50 03/23/19 14:19 03/23/19 05:59 General appearance: Present: no acute distress, well-nourished - EENT Eyes: Present: PERRL ENT: clear oral mucosa, dentition normal - Neck Neck: Present: supple, normal ROM - Respiratory Respiratory effort: normal Respiratory: bilateral: CTA - Cardiovascular Rhythm: regular Heart Sounds: Present: S1 & S2. Absent: systolic murmur - Extremities Extremities: no ischemia, pulses intact, pulses symmetrical Peripheral Pulses: within normal limits - Abdominal General gastrointestinal: Present: soft, non-tender, non-distended, normal bowel sounds - Integumentary Integumentary: Present: clear, warm, dry - Musculoskeletal Musculoskeletal: strength equal bilaterally - Psychiatric Psychiatric: appropriate mood/affect, intact judgment & insight - Neurologic Neurologic: CNII-XII intact, moves all extremities - Allied Health Allied health notes reviewed: nursing Plan Activity: advance as tolerated, fall precautions Diet: diabetic, renal Special Instructions: restrict fluid intake to (1200CC/DAY), record daily BP diary, record blood sugar diary Follow up with: HOMAR CARRERA MD [Primary Care Provider] - 3-5 Days JOSEPH QUIROZ MD [Staff Physician] - 7 Days Prescriptions: hydrALAZINE [Apresoline TAB] 75 mg PO TID #180 tablet Carvedilol [Coreg] 25 mg PO BID #60 tablet amLODIPine [Norvasc] 10 mg PO DAILY #60 tablet Sevelamer Carbonate [Renvela] 800 mg PO QAC #30 tablet Cinacalcet [Sensipar] 30 mg PO QAM #30 tablet Lisinopril [Zestril TAB] 40 mg PO DAILY #30 tablet
== END 2019-03-23 16:30 | disposition home or self-care (01) | DRG 640 ==
LOC: ED 15:04 → 3A 18:45
PROVIDERS: ADMIT Internal Medicine; ATTEND Internal Medicine
PROC: 5A1D70Z Performance of Urinary Filtration, Intermittent, Less than 6 Hours Per Day (ICD-10-PCS; principal; 2019-03-23)
DX: E87.5 Hyperkalemia (principal); N18.6 End stage renal disease; I12.0 Hypertensive chronic kidney disease with stage 5 chronic kidney disease or end stage renal disease; E87.70 Fluid overload, unspecified; I16.0 Hypertensive urgency; Z82.49 Family history of ischemic heart disease and other diseases of the circulatory system; J44.9 Chronic obstructive pulmonary disease, unspecified; F17.200 Nicotine dependence, unspecified, uncomplicated; E87.2 Acidosis; Z95.828 Presence of other vascular implants and grafts; Z87.442 Personal history of urinary calculi; Z99.2 Dependence on renal dialysis
CPT/HCPCS: 36415; 71046; 80053; 85025; 87116; 93005; 93010; G0378; A9270-GY; J0360; J0610; J3246

== ENCOUNTER 2020-04-29 16:13 | Emergency (ER) | payer MEDICARE ==
--- NOTE | 2020-04-29 16:35 | Emergency Department Report ---
ED General Adult HPI - General Stated complaint: HTN PUI?: No Time Seen by Provider: 04/29/20 16:21 Source: patient Mode of arrival: Ambulatory Limitations: No Limitations - History of Present Illness Initial comments: This is a 54 yo male with hx of ESRD on HD T R Sa, HTN who presents from dialysis center with elevated blood pressure. Patient normally takes his blood pressure medicine in the morning prior to going to dialysis. However he forgot to take his morning dose. He took his normal blood pressure medicine at dialysis. However his blood pressure remained high. Consequently EMS was called to transport him to our emergency department. He normally would have been dialyzed on yesterday. He did not go to dialysis on yesterday because a he had an upset stomach. Currently is symptom-free. He denies fever. He denies abdominal pain. He denies chest pain. Denies shortness of breath. He denies cough. After receiving treatment at the dialysis clinic, blood pressure is now 184/86 according to EMS His fishing worker is Dr. Zabala. -: This morning Severity scale (0 -10): 0 Consistency: now resolved Improves with: medication Worsens with: none Associated Symptoms: denies other symptoms Treatments Prior to Arrival: other (home bp medications) - Related Data Home Medications Medication Instructions Recorded Confirmed Last Taken Lisinopril [Zestril] 40 mg PO DAILY 02/11/17 12/29/18 09/16/18 Pravastatin Sodium [Pravastatin] 40 mg PO DAILY 02/11/17 12/29/18 09/16/18 Previous Rx's Medication Instructions Recorded Last Taken Type oxyCODONE /ACETAMINOPHEN [Percocet 1 tab PO Q4HR PRN #30 tab 01/01/19 Unknown Rx 5/325 mg] Cinacalcet [Sensipar] 30 mg PO QAM #30 tablet 03/23/19 Unknown Rx Sevelamer Carbonate [Renvela] 800 mg PO QAC #30 tablet 03/23/19 Unknown Rx amLODIPine 10 mg PO DAILY #60 tablet 03/23/19 Unknown Rx carvediloL [Coreg] 25 mg PO BID #60 tablet 03/23/19 Unknown Rx hydrALAZINE [Apresoline TAB] 75 mg PO TID #180 tablet 03/23/19 Unknown Rx lisinopriL [Zestril TAB] 40 mg PO DAILY #30 tablet 03/23/19 Unknown Rx Allergies Allergy/AdvReac Type Severity Reaction Status Date / Time No Known Allergies Allergy Verified 12/29/18 17:43 ED Review of Systems ROS: Stated complaint: HTN Other details as noted in HPI Comment: All other systems reviewed and negative Constitutional: denies: fever, malaise Respiratory: denies: cough, shortness of breath Cardiovascular: denies: chest pain ED Past Medical Hx - Past Medical History Previous Medical History?: Yes Hx Hypertension: Yes Hx Renal Disease: Yes Hx Kidney Stones: Yes Hx COPD: Yes (STATES HE BELIEVES HE IS) Hx HIV: No Additional medical history: dialysis pt,tues,thurs sat - Surgical History Past Surgical History?: Yes Additional Surgical History: fisutla CARLENE - Social History Smoking Status: Never Smoker - Medications Home Medications: Home Medications Medication Instructions Recorded Confirmed Last Taken Type Lisinopril [Zestril] 40 mg PO DAILY 02/11/17 12/29/18 09/16/18 History Pravastatin Sodium [Pravastatin] 40 mg PO DAILY 02/11/17 12/29/18 09/16/18 History oxyCODONE /ACETAMINOPHEN [Percocet 1 tab PO Q4HR PRN #30 tab 01/01/19 Unknown Rx 5/325 mg] Cinacalcet [Sensipar] 30 mg PO QAM #30 tablet 03/23/19 Unknown Rx Sevelamer Carbonate [Renvela] 800 mg PO QAC #30 tablet 03/23/19 Unknown Rx amLODIPine 10 mg PO DAILY #60 tablet 03/23/19 Unknown Rx carvediloL [Coreg] 25 mg PO BID #60 tablet 03/23/19 Unknown Rx hydrALAZINE [Apresoline TAB] 75 mg PO TID #180 tablet 03/23/19 Unknown Rx lisinopriL [Zestril TAB] 40 mg PO DAILY #30 tablet 03/23/19 Unknown Rx ED Physical Exam - General Limitations: No Limitations General appearance: alert, in no apparent distress - Head Head exam: Present: atraumatic, normocephalic - Eye Eye exam: Present: normal appearance - ENT ENT exam: Present: mucous membranes moist - Neck Neck exam: Present: normal inspection, full ROM - Respiratory Respiratory exam: Present: normal lung sounds bilaterally. Absent: respiratory distress, wheezes, rales, rhonchi - Cardiovascular Cardiovascular Exam: Present: regular rate, normal rhythm, normal heart sounds. Absent: systolic murmur, diastolic murmur, rubs, gallop - GI/Abdominal GI/Abdominal exam: Present: soft, normal bowel sounds. Absent: distended, tenderness, guarding, rebound - Extremities Exam Extremities exam: Present: normal inspection - Neurological Exam Neurological exam: Present: alert, oriented X3, normal gait - Psychiatric Psychiatric exam: Present: normal affect, normal mood - Skin Skin exam: Present: warm, dry, intact, normal color. Absent: rash ED Course Vital Signs 04/29/20 04/29/20 04/29/20 16:31 16:42 16:59 Temperature 98.7 F Pulse Rate 63 65 64 Respiratory 20 16 22 Rate Blood Pressure 171/102 Blood Pressure 171/100 [Left] O2 Sat by Pulse 100 91 Oximetry 04/29/20 04/29/20 17:00 17:16 Temperature Pulse Rate 62 64 Respiratory 21 21 Rate Blood Pressure 171/102 Blood Pressure [Left] O2 Sat by Pulse 91 92 Oximetry ED Medical Decision Making - Lab Data Result diagrams: 04/29/20 16:40 04/29/20 16:40 - Medical Decision Making This is a 54-year-old male with history of end-stage renal disease hemodialysis Saturday. Repeat blood pressure 156/92. Potassium 4.4. Sodium bicarbonate is normal. I spoke with patient's personal fishing worker Dr. Zabala who agrees that patient should obtain his normal dialysis treatment tomorrow. His normal appointment time is 10:30 AM on Saturday. Critical care attestation.: If time is entered above; I have spent that time in minutes in the direct care of this critically ill patient, excluding procedure time. ED Disposition Clinical Impression: ESRD needing dialysis Disposition: [id number]-01 TO HOME OR SELFCARE Is pt being admited?: No Does the pt Need Aspirin: No Condition: Stable Additional Instructions: You have been cleared to receive dialysis tomorrow morning at your normal dialysis appointment time 10:[address] Zabala's order.
[2020-04-29 16:54] LABS: Basophils % (Auto) 0.6 % (0.0-1.8); Eosinophils # (Auto) 0.7 K/mm3 (0.0-0.4); Eosinophils % (Auto) 12.4 % (0.0-4.3); Hematocrit 34.7 % (35.5-45.6); Hemoglobin 11.9 gm/dl (11.8-15.2); Lymphocytes # (Auto) 0.7 K/mm3 (1.2-5.4); Lymphocytes % (Auto) 11.3 % (13.4-35.0); Mean Corpuscular HGB Conc 34 % (32-34); Mean Corpuscular Volume 89 fl (84-94); Monocytes # (Auto) 0.6 K/mm3 (0.0-0.8); Monocytes % (Auto) 10.7 % (0.0-7.3); Platelet Count 128 K/mm3 (140-440); Red Blood Count 3.92 M/mm3 (3.65-5.03); Red Cell Distribution Width 16.2 % (13.2-15.2)
[2020-04-29 17:07] LABS: Calcium 10.7 mg/dL (8.4-10.2)
[2020-04-29 17:56] VITALS: BP 157/92
== END 2020-04-29 18:17 | disposition home or self-care (01) ==
LOC: ED 16:13
DX: I12.0 Hypertensive chronic kidney disease with stage 5 chronic kidney disease or end stage renal disease (principal); N18.6 End stage renal disease; Z99.2 Dependence on renal dialysis; N20.0 Calculus of kidney; J44.9 Chronic obstructive pulmonary disease, unspecified; Z79.899 Other long term (current) drug therapy
CPT/HCPCS: 36415; 80048; 85025

== ENCOUNTER 2020-06-16 11:18 | Emergency (ER) | payer MEDICARE ==
--- NOTE | 2020-06-16 11:55 | XRay Report ---
CHEST 1 VIEW 11:28 AM INDICATION / CLINICAL INFORMATION: Chest pain. COMPARISON: 03/22/2019. FINDINGS: SUPPORT DEVICES: None. HEART / MEDIASTINUM: There is moderate cardiomegaly. There is mild prominence of the central pulmonar y vessels. LUNGS / PLEURA: Interstitial lung markings are slightly increased, especially in the perihilar region s and greater on the right. There is mild patchy parenchymal disease in the right lower lung. Disease has improved overall since the prior exam. No significant pleural effusion. No pneumothorax. ADDITIONAL FINDINGS: No significant additional findings. IMPRESSION: Mild recurrent congestive heart failure. Signer Name: Remy Tapia MD Signed: 06/16/2020 11:51 AM Workstation Name: [id number]
[2020-06-16 11:59] LABS: Hematocrit 36.7 % (35.5-45.6); Hemoglobin 12.3 gm/dl (11.8-15.2); Mean Corpuscular HGB Conc 33 % (32-34); Mean Corpuscular Volume 90 fl (84-94); Platelet Count 133 K/mm3 (140-440); Red Blood Count 4.08 M/mm3 (3.65-5.03); Red Cell Distribution Width 15.7 % (13.2-15.2)
[2020-06-16 12:00] VITALS: BP 167/99
[2020-06-16 12:18] LABS: Calcium 10.7 mg/dL (8.4-10.2)
--- NOTE | 2020-06-16 12:40 | Emergency Department Report ---
ED General Adult HPI - General Chief complaint: Chest Pain Stated complaint: CHEST PAIN/COUGH PUI?: No Time Seen by Provider: 06/16/20 11:20 Source: patient, EMS Mode of arrival: Stretcher Limitations: No Limitations - History of Present Illness Initial comments: This is a 54-year-old male with history of end-stage renal disease on hemodialysis Saturday, hypertension, CHF who presents with chest pain and cough. For 1 month patient has had cough. He has had chest pain with cough for 2 week. Patient has nonproductive cough. She chest pain is couple chest pain is accompanied by cough. Mild sensation which lasts a few seconds[place]. Dialysis nurse on Saturday at he comes to the emergency department for evaluation. -: Gradual, month(s) (1) Location: chest Severity scale (0 -10): 3 Quality: aching Consistency: intermittent Improves with: none Worsens with: other (cough) Associated Symptoms: chest pain, cough - Related Data Home Medications Medication Instructions Recorded Confirmed Last Taken Lisinopril [Zestril] 40 mg PO DAILY 02/11/17 12/29/18 09/16/18 Pravastatin Sodium [Pravastatin] 40 mg PO DAILY 02/11/17 12/29/18 09/16/18 Previous Rx's Medication Instructions Recorded Last Taken Type oxyCODONE /ACETAMINOPHEN [Percocet 1 tab PO Q4HR PRN #30 tab 01/01/19 Unknown Rx 5/325 mg] Cinacalcet [Sensipar] 30 mg PO QAM #30 tablet 03/23/19 Unknown Rx Sevelamer Carbonate [Renvela] 800 mg PO QAC #30 tablet 03/23/19 Unknown Rx amLODIPine 10 mg PO DAILY #60 tablet 03/23/19 Unknown Rx carvediloL [Coreg] 25 mg PO BID #60 tablet 03/23/19 Unknown Rx hydrALAZINE [Apresoline TAB] 75 mg PO TID #180 tablet 03/23/19 Unknown Rx lisinopriL [Zestril TAB] 40 mg PO DAILY #30 tablet 03/23/19 Unknown Rx Prednisone [predniSONE 10 mg 10 mg PO .TAPER #1 tab.ds.pk 06/16/20 Unknown Rx (6-Day Pack, 21 Tabs)] Allergies Allergy/AdvReac Type Severity Reaction Status Date / Time No Known Allergies Allergy Verified 12/29/18 17:43 ED Review of Systems ROS: Stated complaint: CHEST PAIN/COUGH Other details as noted in HPI Comment: All other systems reviewed and negative Respiratory: cough. denies: shortness of breath Cardiovascular: chest pain Gastrointestinal: denies: abdominal pain, nausea, vomiting ED Past Medical Hx - Past Medical History Previous Medical History?: Yes Hx Hypertension: Yes Hx Renal Disease: Yes Hx Kidney Stones: Yes Hx COPD: Yes (STATES HE BELIEVES HE IS) Hx HIV: No Additional medical history: dialysis pt,tues,thurs sat - Surgical History Past Surgical History?: Yes Additional Surgical History: fisutla CARLENE - Social History Smoking Status: Former Smoker Substance Use Type: Alcohol - Medications Home Medications: Home Medications Medication Instructions Recorded Confirmed Last Taken Type Lisinopril [Zestril] 40 mg PO DAILY 02/11/17 12/29/18 09/16/18 History Pravastatin Sodium [Pravastatin] 40 mg PO DAILY 02/11/17 12/29/18 09/16/18 History oxyCODONE /ACETAMINOPHEN [Percocet 1 tab PO Q4HR PRN #30 tab 01/01/19 Unknown Rx 5/325 mg] Cinacalcet [Sensipar] 30 mg PO QAM #30 tablet 03/23/19 Unknown Rx Sevelamer Carbonate [Renvela] 800 mg PO QAC #30 tablet 03/23/19 Unknown Rx amLODIPine 10 mg PO DAILY #60 tablet 03/23/19 Unknown Rx carvediloL [Coreg] 25 mg PO BID #60 tablet 03/23/19 Unknown Rx hydrALAZINE [Apresoline TAB] 75 mg PO TID #180 tablet 03/23/19 Unknown Rx lisinopriL [Zestril TAB] 40 mg PO DAILY #30 tablet 03/23/19 Unknown Rx Prednisone [predniSONE 10 mg 10 mg PO .TAPER #1 tab.ds.pk 06/16/20 Unknown Rx (6-Day Pack, 21 Tabs)] ED Physical Exam - General Limitations: No Limitations General appearance: alert, in no apparent distress - Head Head exam: Present: atraumatic, normocephalic - Eye Eye exam: Present: normal appearance - ENT ENT exam: Present: mucous membranes moist - Neck Neck exam: Present: normal inspection, full ROM - Respiratory Respiratory exam: Present: normal lung sounds bilaterally. Absent: respiratory distress, wheezes, rales, rhonchi - Cardiovascular Cardiovascular Exam: Present: regular rate, normal rhythm, normal heart sounds. Absent: systolic murmur, diastolic murmur, rubs, gallop - GI/Abdominal GI/Abdominal exam: Present: soft, normal bowel sounds. Absent: distended, tenderness - Rectal Rectal exam: Present: deferred - Extremities Exam Extremities exam: Present: normal inspection - Back Exam Back exam: Present: normal inspection - Neurological Exam Neurological exam: Present: alert, oriented X3 - Psychiatric Psychiatric exam: Present: normal affect, normal mood - Skin Skin exam: Present: warm, dry, intact, normal color. Absent: rash ED Course Vital Signs 06/16/20 11:59 Pulse Rate 64 Respiratory 17 Rate Blood Pressure 167/99 [Left] O2 Sat by Pulse 99 Oximetry ED Medical Decision Making - Lab Data Result diagrams: 06/16/20 11:38 06/16/20 11:38 - EKG Data -: EKG Interpreted by Me EKG shows normal: sinus rhythm, axis, intervals, ST-T waves Rate: normal - EKG Data When compared to previous EKG there are: no significant change Interpretation: no acute changes, LVH 06/16/20 12:58 EKG obtained 1241 EKG interpreted by me Normal sinus rhythm rate 60 bpm normal axis normal intervals positive LVH no ST elevation EKG unchanged from March 23, 2019 - Radiology Data Radiology results: report reviewed, image reviewed Chest radiograph: Mild recurrent CHF according to radiology impression - Medical Decision Making Mr. Martin presents with cough and chest pain. No indication of pneumonia on my evaluation. Patient does not have fever or significant sputum production. Chest pain is associated with cough. Chest pain is highly atypical for ACS. I suspect acute bronchitis considering the duration of symptoms. I do not suspect COVID 19 infection. Upon discharge, Mr. Martin to inform me that he feels that new exposure likely is the cause of his symptoms. 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 I have prescribed prednisone. I spoke with piping design specialist Dr. Zabala. He contacted dialysis center to arrange for treatment tomorrow. Dialysis center will call Mr. Martin personally to arrange timing. Critical care attestation.: If time is entered above; I have spent that time in minutes in the direct care of this critically ill patient, excluding procedure time. ED Disposition Clinical Impression: ESRD (end stage renal disease), Acute bronchitis, Chest pain Disposition: TO HOME OR SELFCARE Is pt being admited?: No Does the pt Need Aspirin: No Condition: Stable Instructions: Acute Bronchitis (ED), Chest Pain (ED) Additional Instructions: Please call dialysis center tomorrow to arrange time for treatment. Prescriptions: Prednisone [predniSONE 10 mg (6-Day Pack, 21 Tabs)] 10 mg PO .TAPER #1 tab.ds.pk Referrals: HUI DIOP MD [Staff Physician] - as needed
[2020-06-16 12:53] LABS: Anisocytosis 1+; Basophils % (Manual) 0 % (0.0-1.8); Platelet Estimate Consistent w Auto; Total Cells Counted 100
== END 2020-06-16 15:01 | disposition home or self-care (01) ==
LOC: ED 11:18
DX: I12.0 Hypertensive chronic kidney disease with stage 5 chronic kidney disease or end stage renal disease (principal); N18.6 End stage renal disease; J20.9 Acute bronchitis, unspecified; R07.89 Other chest pain; J44.9 Chronic obstructive pulmonary disease, unspecified; Z99.2 Dependence on renal dialysis; Z87.442 Personal history of urinary calculi; Z98.890 Other specified postprocedural states; Z87.891 Personal history of nicotine dependence; Z79.899 Other long term (current) drug therapy
CPT/HCPCS: 36415; 71045; 80048; 85007; 85025; 93005

== ENCOUNTER 2020-11-12 00:12 | Observation (INO) | payer MEDICARE ==
--- NOTE | 2020-11-12 00:55 | Event Note ---
ED Screening Note Date of service: 11/12/20 Time: 00:51 ED Screening Note: Pt presents for SOB and missed dialysis x yesterday normal dialysis T, , S [facility] [employer] Dr. Alexandra denies chest pain or swelling pulse ox 88% on room air BP elevated, however pt states he took his BP meds in triage This initial assessment/diagnostic orders/clinical plan/treatment(s) is/are subject to change based on patients health status, clinical progression and re- assessment by fellow clinical providers in the ED. Further treatment and workup at subsequent clinical providers discretion. Patient/guardian urged not to elope from the ED as their condition may be serious if not clinically assessed and managed. Initial orders include: labs ekg CXR
[2020-11-12 01:32] LABS: Basophils % (Auto) 0.5 % (0.0-1.8); Eosinophils # (Auto) 0.6 K/mm3 (0.0-0.4); Eosinophils % (Auto) 7.6 % (0.0-4.3); Hematocrit 30.5 % (35.5-45.6); Hemoglobin 10.5 gm/dl (11.8-15.2); Lymphocytes # (Auto) 0.6 K/mm3 (1.2-5.4); Lymphocytes % (Auto) 7.4 % (13.4-35.0); Mean Corpuscular HGB Conc 35 % (32-34); Mean Corpuscular Volume 92 fl (84-94); Monocytes # (Auto) 0.6 K/mm3 (0.0-0.8); Monocytes % (Auto) 6.9 % (0.0-7.3); Platelet Count 124 K/mm3 (140-440); Red Blood Count 3.32 M/mm3 (3.65-5.03); Red Cell Distribution Width 14.7 % (13.2-15.2)
--- NOTE | 2020-11-12 01:32 | XRay Report ---
CHEST 1 VIEW 11/12/2020 1:21 AM INDICATION / CLINICAL INFORMATION: hypoxia. COMPARISON: 06/16/2020. FINDINGS: SUPPORT DEVICES: None. HEART / MEDIASTINUM: Stable cardiomegaly. LUNGS / PLEURA: Patchy opacity at the mid/lower zones bilaterally. No pleural fluid. ADDITIONAL FINDINGS: No significant additional findings. IMPRESSION: Pneumonia versus atypical edema. Signer Name: Rui Brewer MD Signed: 11/12/2020 1:27 AM Workstation Name: [id number]
[2020-11-12 01:35] LABS: Albumin 4.1 g/dL (3.9-5); Calcium 10.3 mg/dL (8.4-10.2)
--- NOTE | 2020-11-12 01:38 | Emergency Department Report ---
ED Shortness of Breath HPI - General Chief Complaint: Dyspnea/Respdistress Stated Complaint: BILL Time Seen by Provider: 11/12/20 00:50 Source: patient, EMS Mode of arrival: Stretcher Limitations: No Limitations - History of Present Illness Initial Comments: Chief complaint: "I just missed dialysis on . I really need dialysis. I want to feel better." HPI: This is a 55-year-old male with history of end-stage renal disease on hemodialysis Saturday, CHF, hypertension, tobacco dependence, who presents with shortness of breath over the past 2 days. T-max dialysis on . 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 He denies associated symptoms including fever chest pain palpitation. He did develop nonproductive cough today. His cold molding press operator is Dr. Fisher, he received dialysis at [facility] at the [facility]. Upon arrival to triage, patient's oxygen saturation was hypoxic 89%. Oxygenation improved with nasal cannula. MD Complaint: shortness of breath, cough -: Gradual, days(s) (2 days) Severity: moderate Consistency: constant Improves With: oxygen, rest Worsens With: lying flat, exertion Known History Of: congestive heart failure, other (End-stage renal disease) Treatments Prior to Arrival: none - Related Data Home Medications Medication Instructions Recorded Confirmed Last Taken Lisinopril [Zestril] 40 mg PO DAILY 02/11/17 12/29/18 09/16/18 Pravastatin Sodium [Pravastatin] 40 mg PO DAILY 02/11/17 12/29/18 09/16/18 Previous Rx's Medication Instructions Recorded Last Taken Type oxyCODONE /ACETAMINOPHEN [Percocet 1 tab PO Q4HR PRN #30 tab 01/01/19 Unknown Rx 5/325 mg] Cinacalcet [Sensipar] 30 mg PO QAM #30 tablet 03/23/19 Unknown Rx Sevelamer Carbonate [Renvela] 800 mg PO QAC #30 tablet 03/23/19 Unknown Rx amLODIPine 10 mg PO DAILY #60 tablet 03/23/19 Unknown Rx carvediloL [Coreg] 25 mg PO BID #60 tablet 03/23/19 Unknown Rx hydrALAZINE [Apresoline TAB] 75 mg PO TID #180 tablet 03/23/19 Unknown Rx lisinopriL [Zestril TAB] 40 mg PO DAILY #30 tablet 03/23/19 Unknown Rx Prednisone [predniSONE 10 mg 10 mg PO .TAPER #1 tab.ds.pk 06/16/20 Unknown Rx (6-Day Pack, 21 Tabs)] Allergies Allergy/AdvReac Type Severity Reaction Status Date / Time No Known Allergies Allergy Verified 12/29/18 17:43 ED Review of Systems ROS: Stated complaint: BILL Other details as noted in HPI Comment: All other systems reviewed and negative Constitutional: denies: fever, malaise Respiratory: cough, shortness of breath Cardiovascular: denies: chest pain Gastrointestinal: denies: abdominal pain, nausea, vomiting ED Past Medical Hx - Past Medical History Previous Medical History?: Yes Hx Hypertension: Yes Hx Renal Disease: Yes Hx Kidney Stones: Yes Hx COPD: Yes (STATES HE BELIEVES HE IS) Hx HIV: No Additional medical history: dialysis pt,tues,jose sat - Surgical History Past Surgical History?: Yes Additional Surgical History: fisutla CARLENE - Social History Smoking Status: Never Smoker Substance Use Type: None - Medications Home Medications: Home Medications Medication Instructions Recorded Confirmed Last Taken Type Lisinopril [Zestril] 40 mg PO DAILY 02/11/17 12/29/18 09/16/18 History Pravastatin Sodium [Pravastatin] 40 mg PO DAILY 02/11/17 12/29/18 09/16/18 History oxyCODONE /ACETAMINOPHEN [Percocet 1 tab PO Q4HR PRN #30 tab 01/01/19 Unknown Rx 5/325 mg] Cinacalcet [Sensipar] 30 mg PO QAM #30 tablet 03/23/19 Unknown Rx Sevelamer Carbonate [Renvela] 800 mg PO QAC #30 tablet 03/23/19 Unknown Rx amLODIPine 10 mg PO DAILY #60 tablet 03/23/19 Unknown Rx carvediloL [Coreg] 25 mg PO BID #60 tablet 03/23/19 Unknown Rx hydrALAZINE [Apresoline TAB] 75 mg PO TID #180 tablet 03/23/19 Unknown Rx lisinopriL [Zestril TAB] 40 mg PO DAILY #30 tablet 03/23/19 Unknown Rx Prednisone [predniSONE 10 mg 10 mg PO .TAPER #1 tab.ds.pk 06/16/20 Unknown Rx (6-Day Pack, 21 Tabs)] ED Physical Exam - General Limitations: No Limitations General appearance: alert, other (Mild work of breathing, speaking sentences with effort, infrequent cough,) - Head Head exam: Present: atraumatic, normocephalic - Eye Eye exam: Present: normal appearance - Neck Neck exam: Present: normal inspection, full ROM - Respiratory Respiratory exam: Present: rales. Absent: respiratory distress, wheezes, rhonchi, decreased breath sounds, prolonged expiratory - Cardiovascular Cardiovascular Exam: Present: regular rate, normal rhythm, normal heart sounds. Absent: systolic murmur, diastolic murmur, rubs, gallop - GI/Abdominal GI/Abdominal exam: Present: soft, normal bowel sounds. Absent: distended, tenderness, guarding, rebound - Rectal Rectal exam: Present: deferred - Extremities Exam Extremities exam: Present: normal inspection - Neurological Exam Neurological exam: Present: alert, oriented X3 - Psychiatric Psychiatric exam: Present: normal affect, normal mood - Skin Skin exam: Present: warm, dry, intact, normal color, other (Right upper extremity bicep AV fistula positive thrill positive bruit). Absent: rash ED Course Vital Signs 11/12/20 11/12/20 11/12/20 00:46 01:29 01:31 Temperature 98.0 F Pulse Rate 90 75 75 Respiratory 18 24 22 Rate Blood Pressure 202/130 185/106 O2 Sat by Pulse 89 Oximetry 11/12/20 11/12/20 11/12/20 01:45 02:01 02:15 Temperature Pulse Rate 68 70 73 Respiratory 25 H 25 H 20 Rate Blood Pressure 183/103 175/99 169/95 O2 Sat by Pulse 100 99 Oximetry 11/12/20 11/12/20 11/12/20 02:31 02:45 03:01 Temperature Pulse Rate 73 71 73 Respiratory 21 10 L 25 H Rate Blood Pressure 172/96 179/96 182/98 O2 Sat by Pulse 94 91 93 Oximetry ED Medical Decision Making - Lab Data Result diagrams: 11/12/20 00:56 11/12/20 00:56 - EKG Data -: EKG Interpreted by Nh EKG shows normal: sinus rhythm, axis, intervals, QRS complexes, ST-T waves Rate: normal - EKG Data 11/12/20 01:42 EKG obtained 0124 EKG interpreted by me Normal sinus rhythm rate 75 bpm normal axis normal intervals no ST elevation nonischemic T wave pattern - Radiology Data Radiology results: report reviewed, image reviewed CHEST 1 VIEW 11/12/2020 1:21 AM INDICATION / CLINICAL INFORMATION: hypoxia. COMPARISON: 06/16/2020. FINDINGS: SUPPORT DEVICES: None. HEART / MEDIASTINUM: Stable cardiomegaly. LUNGS / PLEURA: Patchy opacity at the mid/lower zones bilaterally. No pleural fluid. ADDITIONAL FINDINGS: No significant additional findings. IMPRESSION: Pneumonia versus atypical edema. - Medical Decision Making 1. Hypovolemia, pulmonary edema, respiratory failure hypoxia due to noncompliance with hemodialysis. Potassium is normal. I do not suspect pneumonia or COVID-19 infection with patient's clinical presentation. I person sandray reviewed the chest radiograph: I suspect patient has pulmonary edema. Dr. Park cold molding press operator recommended IV Lasix and albuterol nebulizer therapy. Dr. Park will arrange morning hemodialysis. Troponin elevated, baseline value for patient. I do not suspect ACS. Labs also reveal chronic anemia. Critical care attestation.: If time is entered above; I have spent that time in minutes in the direct care of this critically ill patient, excluding procedure time. ED Disposition Clinical Impression: Acute respiratory failure with hypoxia, Volume overload, ESRD needing dialysis, Pulmonary edema Disposition: OP ADMIT IP TO THIS HOSP Is pt being admited?: Yes Does the pt Need Aspirin: No Condition: Stable Instructions: Pulmonary Edema (ED) Referrals: PRIMARY CARE, [Primary Care Provider] - 3-5 Days
[2020-11-12] MEDS ORDERED: ALBUTEROL 2.5 MG/3 ML NEBU IH ONE (02:37)
[2020-11-12] MEDS ORDERED: FUROSEMIDE 100 MG/10 ML INJ IV ONE (02:37)
[2020-11-12] MEDS ORDERED: SODIUM CHLORIDE 0.9% 50 ML IV ONE (03:00)
[2020-11-12] MEDS ORDERED: ACETAMINOPHEN 325 MG TAB PO PRN (04:21)
[2020-11-12] MEDS ORDERED: MAGNESIUM HYDROXIDE (MOM) ORAL LIQD UDC PO PRN (04:21)
[2020-11-12] MEDS ORDERED: MORPHINE 2 MG/1 ML INJ IV PRN (04:21)
[2020-11-12] MEDS ORDERED: ONDANSETRON 4 MG/2 ML INJ IV PRN (04:21)
--- NOTE | 2020-11-12 04:29 | History and Physical Report ---
History of Present Illness Date of examination: 11/12/20 Date of admission: 11/12/20 02:38 Chief complaint: ESRD needing dialysis History of present illness: 4-year-old male with known history of hypertension, CHF, end-stage renal disease on dialysis-Tuesdays, and Saturdays presenting to the emergency room today complaining of shortness of breath which has been ongoing for about 2 days. 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 Patient denies any fever or chills, no chest pain, no nausea vomiting, no headache or dizziness, no abdominal pain, no diarrhea or constipation. Patient had some mild cough which was nonproductive. Patient follows up with Dr. Fisher-slip cover maker. He gets his dialysis at [facility]. Chest x-ray today reveals: Pneumonia versus atypical edema Patient is being admitted with end-stage renal disease needing dialysis. Past History Past Medical History: COPD, dialysis (Saturday, , Saturday.), ESRD, hypertension, hyperlipidemia, renal failure Past Surgical History: Other (AV fistula placement in right upper extremity) Social history: no significant social history Family history: no significant family history Medications and Allergies Allergies Allergy/AdvReac Type Severity Reaction Status Date / Time No Known Allergies Allergy Verified 12/29/18 17:43 Home Medications Medication Instructions Recorded Confirmed Last Taken Type Lisinopril [Zestril] 40 mg PO DAILY 02/11/17 12/29/18 09/16/18 History Pravastatin Sodium [Pravastatin] 40 mg PO DAILY 02/11/17 12/29/18 09/16/18 History oxyCODONE /ACETAMINOPHEN [Percocet 1 tab PO Q4HR PRN #30 tab 01/01/19 Unknown Rx 5/325 mg] Cinacalcet [Sensipar] 30 mg PO QAM #30 tablet 03/23/19 Unknown Rx Sevelamer Carbonate [Renvela] 800 mg PO QAC #30 tablet 03/23/19 Unknown Rx amLODIPine 10 mg PO DAILY #60 tablet 03/23/19 Unknown Rx carvediloL [Coreg] 25 mg PO BID #60 tablet 03/23/19 Unknown Rx hydrALAZINE [Apresoline TAB] 75 mg PO TID #180 tablet 03/23/19 Unknown Rx lisinopriL [Zestril TAB] 40 mg PO DAILY #30 tablet 03/23/19 Unknown Rx Prednisone [predniSONE 10 mg 10 mg PO .TAPER #1 tab.ds.pk 06/16/20 Unknown Rx (6-Day Pack, 21 Tabs)] Active Meds: Active Medications Acetaminophen (Acetaminophen 325 Mg Tab) 650 mg PO Q4H PRN PRN Reason: Pain MILD(1-3)/Fever >100.5/OLIVAS Magnesium Hydroxide (Magnesium Hydroxide (Mom) Oral Liqd Udc) 30 ml PO Q4H PRN PRN Reason: Constipation Morphine Sulfate (Morphine 2 Mg/1 Ml Inj) 2 mg IV Q4H PRN PRN Reason: Pain, Moderate (4-6) Ondansetron HCl (Ondansetron 4 Mg/2 Ml Inj) 4 mg IV Q8H PRN PRN Reason: Nausea And Vomiting Sodium Chloride (Sodium Chloride 0.9% 10 Ml Flush Syringe) 10 ml IV BID DANITA Sodium Chloride (Sodium Chloride 0.9% 10 Ml Flush Syringe) 10 ml IV PRN PRN PRN Reason: LINE FLUSH Review of Systems Constitutional: no fever, no chills Ears, nose, mouth and throat: no nasal congestion, no sore throat Cardiovascular: no chest pain, no palpitations Respiratory: shortness of breath, no cough Gastrointestinal: no abdominal pain, no nausea, no vomiting, no diarrhea Genitourinary Male: no dysuria, no hematuria, no flank pain Musculoskeletal: no neck pain, no low back pain Integumentary: no rash, no pruritis Neurological: no headaches, no confusion Psychiatric: no anxiety, no depression Exam - Constitutional Vitals: Temp Pulse Resp BP Pulse Ox 98.0 F 74 23 179/95 88 11/12/20 00:46 11/12/20 03:31 11/12/20 03:31 11/12/20 03:31 11/12/20 03:31 General appearance: Present: no acute distress, well-nourished - EENT Eyes: Present: PERRL, EOM intact. Absent: scleral icterus ENT: hearing intact, clear oral mucosa, dentition normal - Neck Neck: Present: supple, normal ROM - Respiratory Respiratory effort: normal Respiratory: bilateral: diminished - Cardiovascular Rhythm: regular Heart Sounds: Present: S1 & S2. Absent: gallop, systolic murmur, diastolic murmur, rub, click - Extremities Extremities: no ischemia, pulses intact, pulses symmetrical, No edema, normal t emperature, normal color, Full ROM Peripheral Pulses: within normal limits - Abdominal General gastrointestinal: Present: soft, non-tender, non-distended, normal bowel sounds. Absent: mass - Integumentary Integumentary: Present: clear, warm, dry. Absent: rash - Musculoskeletal Musculoskeletal: strength equal bilaterally - Psychiatric Psychiatric: appropriate mood/affect, intact judgment & insight, memory intact, cooperative - Neurologic Neurologic: CNII-XII intact, no focal deficits, moves all extremities HEART Score - HEART Score Troponin: Troponin T 0.123 ng/mL (0.00-0.029) H* 11/12/20 00:56 Results - Labs CBC & Chem 7: 11/12/20 00:56 11/12/20 00:56 Labs: Abnormal lab results 11/12/20 11/12/20 11/12/20 Range/Units 00:56 00:56 00:56 RBC 3.32 L (3.65-5.03) M/mm3 Hgb 10.5 L (11.8-15.2) gm/dl Hct 30.5 L (35.5-45.6) % MCHC 35 H (32-34) % Plt Count 124 L (140-440) K/mm3 Lymph % (Auto) 7.4 L (13.4-35.0) % Eos % (Auto) 7.6 H (0.0-4.3) % Lymph # (Auto) 0.6 L (1.2-5.4) K/mm3 Eos # (Auto) 0.6 H (0.0-0.4) K/mm3 Seg Neutrophils % 77.6 H (40.0-70.0) % BUN 71 H (9-20) mg/dL Creatinine 15.5 H (0.8-1.3) mg/dL Calcium 10.3 H (8.4-10.2) mg/dL Troponin T 0.123 H* (0.00-0.029) ng/mL Assessment and Plan - Patient Problems (1) Fluid overload Current Visit: Yes Status: Acute Qualifiers: Plan to address problem: Possibly secondary to noncompliance with dialysis. (2) ESRD needing dialysis Current Visit: Yes Status: Chronic Plan to address problem: Cable Mechanic has been consulted for dialysis , Patient gets dialysis on Tuesdays, and Saturdays. (3) HTN (hypertension) Current Visit: No Status: Acute Qualifiers: Hypertension type: essential hypertension Qualified Code(s): I10 - Essential (primary) hypertension Plan to address problem: We will resume routine home medications and monitor vital signs closely. (4) DVT prophylaxis Current Visit: No Status: Acute Plan to address problem: Patient placed on subcutaneous heparin. (5) Full code status Current Visit: Yes Status: Acute Plan to address problem: Patient is full code.
[2020-11-12 05:48] LABS: Chol/HDL Ratio 1.92 %
[2020-11-12] MEDS: carvediloL 25 MG TAB PO SCH ×2 (08:32→16:28)
[2020-11-12] MEDS: hydrALAZINE 25 MG TAB PO SCH ×2 (08:32→16:28)
[2020-11-12] MEDS ORDERED: LISINOPRIL 40 MG TAB PO SCH (10:00)
[2020-11-12] MEDS ORDERED: amLODIPine 10 MG TAB PO SCH (10:00)
[2020-11-12] MEDS ORDERED: PRAVASTATIN 40 MG TAB PO SCH (10:00)
[2020-11-12] MEDS ORDERED: CINACALCET 30 MG TAB PO SCH (10:00)
[2020-11-12] MEDS ORDERED: SODIUM CHLORIDE 0.9% 100 ML IV PRN (11:34)
--- NOTE | 2020-11-12 11:36 | Consultation ---
History of Present Illness - History of Present Illness Thank you for the consultation Patient was evaluated today My assessment and plan are as follows #End-stage renal disease: Patient is currently on maintenance hemodialysis and is currently followed by Dr. QUIROZ , which I was not informed I did dialyze the patient given super vitamin hematemesis as well patient wanted to cover his treatment by 15 minute advised him not to do so Hemodialysis nurse to ultrafiltrate as tolerated, systolic blood pressure must be kept above 100, heart rate below 100 #Blood pressure and volume: To monitor and follow 1000 cc fluid restriction per day goal systolic blood pressure 140 or less #Anemia in end-stage renal disease to monitor hemoglobin and hematocrit periodically erythropoietin as needed, further workup may be required depending on the hemoglobin #Bone mineral disorder and secondary hyperparathyroidism: Monitor phosphorus and PTH level periodically #Dialysis Access: Currently working well no acute issues noted #Diet and nutrition: Patient advised to maintain 1200 cc fluid restriction needs to be on protein: 1.5 g/kg body weight daily, supplement should be considered #Current lab results were explained to the patient at length in simple Ukrainian and patient does have clear understanding #All dialysis-related questions have been answered to the patient More than 35 minutes were spent in direct patient care today at the bedside, If you have any further question in regards to this patient care please feel free to contact us at [phone] Author: Nick Park M.D. [facility], [address] [place] [address] Tel; [phone] Source of information: From patient History of present illness Patient is 55-year-old -[place] male who is currently established with Dr. Quiroz for his end-stage renal disease care and is currently being dialyzed at [facility] dialysis facility. Patient came in here with shortness of breath and was not feeling well. Hemodialysis was ordered, I did come to see him to provide the patient on hemodialysis as well patient told me that he wanted to cut off his treatment by 15 minutes for unclear reason which I told him not to do so he was not having any form of discomfort or pain Dialysis treatment was otherwise going well discussed with dialysis nurse no issues noted Past medical history: Hypertension ESRD Hyperlipidemia Secondary hyperparathyroidism COPD Current allergies: Reviewed from the current chart Social history: Reviewed from the current chart Family history: Reviewed from the current chart Review of system: Positive for shortness of breath All other review of systems negative Physical examination Vitals: Reviewed General: No acute distress HEENT: Oral mucosa moist no pallor or icterus Neck: Supple without any JVD thyromegaly or nodular mass Chest: Clear to auscultation Heart: Regular rate and rhythm S1-S2 heard no S3-S4 Abdomen: Soft nontender, bowel sounds present no renal bruit no suprapubic masses no CVA tenderness noted Extremity: Minimal edema dry skin no peripheral cyanosis Endocrine: Thyroid not enlarged Psychiatric: No agitation and aggression noted Musculoskeletal: No joint effusion noted Labs and x-rays: Reviewed from this admission Past History Past Medical History: COPD, dialysis (Saturday, , Saturday.), ESRD, hypertension, hyperlipidemia, renal failure Past Surgical History: Other (AV fistula placement in right upper extremity) Social history: no significant social history Family history: no significant family history Medications and Allergies Allergies Allergy/AdvReac Type Severity Reaction Status Date / Time No Known Allergies Allergy Verified 12/29/18 17:43 Home Medications Medication Instructions Recorded Confirmed Last Taken Type Lisinopril [Zestril] 40 mg PO DAILY 02/11/17 12/29/18 09/16/18 History Pravastatin Sodium [Pravastatin] 40 mg PO DAILY 02/11/17 12/29/18 09/16/18 History oxyCODONE /ACETAMINOPHEN [Percocet 1 tab PO Q4HR PRN #30 tab 01/01/19 Unknown Rx 5/325 mg] Cinacalcet [Sensipar] 30 mg PO QAM #30 tablet 03/23/19 Unknown Rx Sevelamer Carbonate [Renvela] 800 mg PO QAC #30 tablet 03/23/19 Unknown Rx amLODIPine 10 mg PO DAILY #60 tablet 03/23/19 Unknown Rx carvediloL [Coreg] 25 mg PO BID #60 tablet 03/23/19 Unknown Rx hydrALAZINE [Apresoline TAB] 75 mg PO TID #180 tablet 03/23/19 Unknown Rx lisinopriL [Zestril TAB] 40 mg PO DAILY #30 tablet 03/23/19 Unknown Rx Prednisone [predniSONE 10 mg 10 mg PO .TAPER #1 tab.ds.pk 06/16/20 Unknown Rx (6-Day Pack, 21 Tabs)] Active Meds: Active Medications Acetaminophen (Acetaminophen 325 Mg Tab) 650 mg PO Q4H PRN PRN Reason: Pain MILD(1-3)/Fever >100.5/OLIVAS Amlodipine Besylate (Amlodipine 10 Mg Tab) 10 mg PO DAILY [facility] Last Admin: 11/12/20 09:52 Dose: 10 mg Documented by: Carvedilol (Carvedilol 25 Mg Tab) 25 mg PO BID@0800,1700 [facility] Last Admin: 11/12/20 08:32 Dose: 25 mg Documented by: Cinacalcet (Cinacalcet 30 Mg Tab) 30 mg PO QAM [facility] Last Admin: 11/12/20 09:52 Dose: 30 mg Documented by: Hydralazine HCl (Hydralazine 25 Mg Tab) 75 mg PO TID [facility] Last Admin: 11/12/20 08:32 Dose: 75 mg Documented by: Sodium Chloride (Nacl 0.9%) 100 mls @ 999 mls/hr IV ALISSA PRN PRN Reason: Hypotension Lisinopril (Lisinopril 40 Mg Tab) 40 mg PO DAILY [facility] Last Admin: 11/12/20 09:52 Dose: 40 mg Documented by: Magnesium Hydroxide (Magnesium Hydroxide (Mom) Oral Liqd Udc) 30 ml PO Q4H PRN PRN Reason: Constipation Morphine Sulfate (Morphine 2 Mg/1 Ml Inj) 2 mg IV Q4H PRN PRN Reason: Pain, Moderate (4-6) Ondansetron HCl (Ondansetron 4 Mg/2 Ml Inj) 4 mg IV Q8H PRN PRN Reason: Nausea And Vomiting Pravastatin Sodium (Pravastatin 40 Mg Tab) 40 mg PO DAILY [facility] Last Admin: 11/12/20 09:52 Dose: 40 mg Documented by: Sodium Chloride (Sodium Chloride 0.9% 10 Ml Flush Syringe) 10 ml IV BID [facility] Last Admin: 11/12/20 09:52 Dose: 10 ml Documented by: Sodium Chloride (Sodium Chloride 0.9% 10 Ml Flush Syringe) 10 ml IV PRN PRN PRN Reason: LINE FLUSH Exam - Vital Signs Vital signs: Vital Signs Temp Pulse Resp BP Pulse Ox 98.0 F 90 18 202/130 89 11/12/20 00:46 11/12/20 00:46 11/12/20 00:46 11/12/20 00:46 11/12/20 00:46 Results - Lab Results 11/12/20 00:56 11/12/20 00:56 Most recent lab results Calcium 10.3 mg/dL (8.4-10.2) H 11/12/20 00:56
--- NOTE | 2020-11-12 14:35 | Event Note ---
Date: 11/12/20 Patient admitted for volume overload Patient undergoing hemodialysis Patient to be counseled about compliance
[2020-11-12 14:36] LABS: Hepatitis B Surface Antigen Non-Reactive (Negative); Hepatitis C Virus Antibody Non-Reactive (NonReactive)
--- NOTE | 2020-11-12 14:44 | Discharge Summary ---
Providers - Providers Date of Admission: 11/12/20 02:38 Date of discharge: 11/12/20 Attending physician: FLORECITA TALAMANTES 11/12/20 02:37 Consult to Physician [CONS] Stat Comment: Dr. Estes spoke with Dr. Park @ 0232 Consulting Provider: JEZ PARK Physician Instructions: Reason For Exam: hypervolemia ESRD Primary care physician: MORTGAGE LOAN COORDINATOR Hospitalization Condition: Stable Hospital course: 55-year-old male with known history of hypertension, CHF, end-stage renal disease on dialysis-Tuesdays, and Saturdays presenting to the emergency room today complaining of shortness of breath which has been ongoing for about 2 days. 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 Patient denies any fever or chills, no chest pain, no nausea vomiting, no headache or dizziness, no abdominal pain, no diarrhea or constipation. Patient had some mild cough which was nonproductive. Patient follows up with Dr. Fisher-bunch maker hand. He gets his dialysis at [facility]. Chest x-ray today reveals: Pneumonia versus atypical edema Patient is being admitted with end-stage renal disease needing dialysis. Assessment and Plan (1) Fluid overload Patient underwent dialysis Patient was counseled about hemodialysis and keeping his appointments (2) ESRD needing dialysis Current Visit: Yes Status: Chronic Plan to address problem: Growth Hacker has been consulted for dialysis , Patient gets dialysis on Tuesdays, and Saturdays. (3) HTN (hypertension) Current Visit: No Status: Acute Qualifiers: Hypertension type: essential hypertension Qualified Code(s): I10 - Essential (primary) hypertension Plan to address problem: Blood pressure better controlled sely. Disposition: DC-01 TO HOME OR SELFCARE - Discharge Diagnoses (1) Acute respiratory failure with hypoxia Status: Acute (2) Fluid overload Status: Acute Qualifiers: (3) ESRD needing dialysis Status: Chronic (4) CHF (congestive heart failure) Status: Acute (5) Hypertension Status: Chronic (6) Volume overload Status: Chronic (7) DVT prophylaxis Status: Acute Core Measure Documentation - Palliative Care Palliative Care/ Comfort Measures: Not Applicable - Core Measures Any of the following diagnoses?: none Exam - Constitutional Vitals: Temp Pulse Resp BP Pulse Ox 97.9 F 72 18 162/90 92 11/12/20 12:15 11/12/20 13:30 11/12/20 12:15 11/12/20 13:30 11/12/20 11:43 General appearance: Present: no acute distress, well-nourished - EENT Eyes: Present: PERRL ENT: hearing intact, clear oral mucosa - Neck Neck: Present: supple, normal ROM - Respiratory Respiratory effort: normal Respiratory: bilateral: CTA - Cardiovascular Heart rate: 68 Rhythm: regular Heart Sounds: Present: S1 & S2. Absent: rub, click - Extremities Extremities: no ischemia, pulses intact, pulses symmetrical, No edema Peripheral Pulses: within normal limits - Abdominal General gastrointestinal: Present: soft, non-tender, non-distended, normal bowel sounds Male genitourinary: Present: normal - Rectal Rectal Exam: deferred - Integumentary Integumentary: Present: clear, warm, dry - Musculoskeletal Musculoskeletal: gait normal, strength equal bilaterally - Psychiatric Psychiatric: appropriate mood/affect, intact judgment & insight - Neurologic Neurologic: CNII-XII intact, moves all extremities - Allied Health Allied health notes reviewed: nursing, case management Plan Diet: renal Follow up with: SUSY COLE MD [Primary Care Provider] - 3-5 Days JEZ APRK MD [Staff Physician] - 7 Days
[2020-11-12 16:28] VITALS: BP 174/94
== END 2020-11-12 17:47 | disposition home or self-care (01) ==
LOC: ED 00:12 → 4A 02:38
PROVIDERS: ADMIT Internal Medicine Geriatric Medicine; ATTEND Internal Medicine
DX: J96.01 Acute respiratory failure with hypoxia (principal); I12.0 Hypertensive chronic kidney disease with stage 5 chronic kidney disease or end stage renal disease; N18.6 End stage renal disease; J81.1 Chronic pulmonary edema; E87.70 Fluid overload, unspecified; E83.9 Disorder of mineral metabolism, unspecified; J44.9 Chronic obstructive pulmonary disease, unspecified; D63.1 Anemia in chronic kidney disease; Z79.899 Other long term (current) drug therapy; Z99.2 Dependence on renal dialysis; Z98.890 Other specified postprocedural states; Z87.442 Personal history of urinary calculi
CPT/HCPCS: 36415; 71045; 80053; 80061; 80074; 84484; 85025; 93005; 94640; 96374; 99285; A9270; G0378; J1940

== ENCOUNTER 2021-02-28 16:01 | Emergency (ER) | payer MEDICARE ==
[2021-02-28 16:53] VITALS: BP 173/96
[2021-02-28] MEDS ORDERED: ACETAMINOPEN W/CODEINE 120-12MG ORAL LIQD 5 ML PO STA (18:44)
--- NOTE | 2021-02-28 19:52 | XRay Report ---
CHEST PA AND LATERAL VIEWS INDICATION: wheeze. COMPARISON: 11/12/2020 FINDINGS: Support devices: None. Heart: Stable, mildly enlarged. Lungs/Pleura: There is mild airspace disease in the lower lungs, right greater than left. No pleural abnormality. IMPRESSION: 1. Mild bibasilar pulmonary opacities greater on the right. These findings are concerning for pneumon ia/lower airways disease. Early pulmonary edema could also have this appearance. Signer Name: William Jones MD Signed: 02/28/2021 7:48 PM Workstation Name: [id number]
--- NOTE | 2021-02-28 21:35 | Emergency Department Report ---
ED General Adult HPI - General Chief complaint: Dyspnea/Respdistress Stated complaint: COUGHING Time Seen by Provider: 02/28/21 18:43 Source: patient Mode of arrival: Ambulatory Limitations: No Limitations - History of Present Illness Severity scale (0 -10): 3 - Related Data Home Medications Medication Instructions Recorded Confirmed Last Taken Lisinopril [Zestril] 40 mg PO DAILY 02/11/17 12/29/18 09/16/18 Pravastatin Sodium [Pravastatin] 40 mg PO DAILY 02/11/17 12/29/18 09/16/18 Previous Rx's Medication Instructions Recorded Last Taken Type oxyCODONE /ACETAMINOPHEN [Percocet 1 tab PO Q4HR PRN #30 tab 01/01/19 Unknown Rx 5/325 mg] Cinacalcet [Sensipar] 30 mg PO QAM #30 tablet 03/23/19 Unknown Rx Sevelamer Carbonate [Renvela] 800 mg PO QAC #30 tablet 03/23/19 Unknown Rx amLODIPine 10 mg PO DAILY #60 tablet 03/23/19 Unknown Rx carvediloL [Coreg] 25 mg PO BID #60 tablet 03/23/19 Unknown Rx hydrALAZINE [Apresoline TAB] 75 mg PO TID #180 tablet 03/23/19 Unknown Rx lisinopriL [Zestril TAB] 40 mg PO DAILY #30 tablet 03/23/19 Unknown Rx Prednisone [predniSONE 10 mg 10 mg PO .TAPER #1 tab.ds.pk 06/16/20 Unknown Rx (6-Day Pack, 21 Tabs)] Allergies Allergy/AdvReac Type Severity Reaction Status Date / Time No Known Allergies Allergy Verified 12/29/18 17:43 ED Review of Systems ROS: Stated complaint: COUGHING Other details as noted in HPI ED Past Medical Hx - Past Medical History Previous Medical History?: Yes Hx Hypertension: Yes Hx Congestive Heart Failure: Yes Hx Renal Disease: Yes Hx Kidney Stones: Yes Hx COPD: Yes (STATES HE BELIEVES HE IS) Hx HIV: No Additional medical history: dialysis pt,tues,thurs sat - Surgical History Past Surgical History?: Yes Additional Surgical History: fisutla CARLENE - Social History Smoking Status: Never Smoker - Medications Home Medications: Home Medications Medication Instructions Recorded Confirmed Last Taken Type Lisinopril [Zestril] 40 mg PO DAILY 06/01/2312/29/18 09/16/18 History Pravastatin Sodium [Pravastatin] 40 mg PO DAILY 02/11/17 12/29/18 09/16/18 History oxyCODONE /ACETAMINOPHEN [Percocet 1 tab PO Q4HR PRN #30 tab 01/01/19 Unknown Rx 5/325 mg] Cinacalcet [Sensipar] 30 mg PO QAM #30 tablet 03/23/19 Unknown Rx Sevelamer Carbonate [Renvela] 800 mg PO QAC #30 tablet 03/23/19 Unknown Rx amLODIPine 10 mg PO DAILY #60 tablet 03/23/19 Unknown Rx carvediloL [Coreg] 25 mg PO BID #60 tablet 03/23/19 Unknown Rx hydrALAZINE [Apresoline TAB] 75 mg PO TID #180 tablet 03/23/19 Unknown Rx lisinopriL [Zestril TAB] 40 mg PO DAILY #30 tablet 03/23/19 Unknown Rx Prednisone [predniSONE 10 mg 10 mg PO .TAPER #1 tab.ds.pk 06/16/20 Unknown Rx (6-Day Pack, 21 Tabs)] ED Physical Exam - General Limitations: No Limitations ED Course Vital Signs 02/28/21 16:49 Temperature 98.7 F Pulse Rate 65 Respiratory 18 Rate Blood Pressure 173/96 [Left] O2 Sat by Pulse 99 Oximetry Critical care attestation.: If time is entered above; I have spent that time in minutes in the direct care of this critically ill patient, excluding procedure time. ED Disposition Condition: Stable Referrals: PRIMARY CARE, [Primary Care Provider] - 3-5 Days
--- NOTE | 2021-02-28 21:43 | Emergency Department Report ---
ED General Adult HPI - General Chief complaint: Dyspnea/Respdistress Stated complaint: COUGHING Time Seen by Provider: 02/28/21 18:43 Source: patient Mode of arrival: Ambulatory Limitations: No Limitations - History of Present Illness Initial comments: 55-year-old -[place] male with a known history of hypertension, CHF, end-stage renal disease requiring dialysis Saturday at [facility], presents to the emergency department complaining of a 3-month history of coughing and chest congestion off and on despite dialysis, and visits to the hospital and primary care provider. Reports no fever, chills, sweats., No hemoptysis, hematemesis, hematochezia, no nausea, no vomiting, no headache, no blurred vision, no presyncope. Location: chest Radiation: non-radiation Severity scale (0 -10): 3 Consistency: constant Improves with: none Worsens with: none Associated Symptoms: denies: cough, diaphoresis, fever/chills, malaise, nausea/vomiting - Related Data Home Medications Medication Instructions Recorded Confirmed Last Taken Lisinopril [Zestril] 40 mg PO DAILY 02/11/17 12/29/18 09/16/18 Pravastatin Sodium [Pravastatin] 40 mg PO DAILY 02/11/17 12/29/18 09/16/18 Previous Rx's Medication Instructions Recorded Last Taken Type oxyCODONE /ACETAMINOPHEN [Percocet 1 tab PO Q4HR PRN #30 tab 01/01/19 Unknown Rx 5/325 mg] Cinacalcet [Sensipar] 30 mg PO QAM #30 tablet 03/23/19 Unknown Rx Sevelamer Carbonate [Renvela] 800 mg PO QAC #30 tablet 03/23/19 Unknown Rx amLODIPine 10 mg PO DAILY #60 tablet 03/23/19 Unknown Rx carvediloL [Coreg] 25 mg PO BID #60 tablet 03/23/19 Unknown Rx hydrALAZINE [Apresoline TAB] 75 mg PO TID #180 tablet 03/23/19 Unknown Rx lisinopriL [Zestril TAB] 40 mg PO DAILY #30 tablet 03/23/19 Unknown Rx Prednisone [predniSONE 10 mg 10 mg PO .TAPER #1 tab.ds.pk 06/16/20 Unknown Rx (6-Day Pack, 21 Tabs)] Allergies Allergy/AdvReac Type Severity Reaction Status Date / Time No Known Allergies Allergy Verified 12/29/18 17:43 ED Review of Systems ROS: Stated complaint: COUGHING Other details as noted in HPI Comment: All other systems reviewed and negative ED Past Medical Hx - Past Medical History Previous Medical History?: Yes Hx Hypertension: Yes Hx Congestive Heart Failure: Yes Hx Renal Disease: Yes Hx Kidney Stones: Yes Hx COPD: Yes (STATES HE BELIEVES HE IS) Hx HIV: No Additional medical history: dialysis pt,tues,thurs sat - Surgical History Past Surgical History?: Yes Additional Surgical History: fisutla CARLENE - Social History Smoking Status: Never Smoker - Medications Home Medications: Home Medications Medication Instructions Recorded Confirmed Last Taken Type Lisinopril [Zestril] 40 mg PO DAILY 02/11/17 12/29/18 09/16/18 History Pravastatin Sodium [Pravastatin] 40 mg PO DAILY 02/11/17 12/29/18 09/16/18 Histo ry oxyCODONE /ACETAMINOPHEN [Percocet 1 tab PO Q4HR PRN #30 tab 01/01/19 Unknown Rx 5/325 mg] Cinacalcet [Sensipar] 30 mg PO QAM #30 tablet 03/23/19 Unknown Rx Sevelamer Carbonate [Renvela] 800 mg PO QAC #30 tablet 03/23/19 Unknown Rx amLODIPine 10 mg PO DAILY #60 tablet 03/23/19 Unknown Rx carvediloL [Coreg] 25 mg PO BID #60 tablet 03/23/19 Unknown Rx hydrALAZINE [Apresoline TAB] 75 mg PO TID #180 tablet 03/23/19 Unknown Rx lisinopriL [Zestril TAB] 40 mg PO DAILY #30 tablet 03/23/19 Unknown Rx Prednisone [predniSONE 10 mg 10 mg PO .TAPER #1 tab.ds.pk 06/16/20 Unknown Rx (6-Day Pack, 21 Tabs)] ED Physical Exam - General Limitations: No Limitations General appearance: alert, in no apparent distress - Head Head exam: Present: atraumatic, normocephalic - Eye Eye exam: Present: normal appearance, PERRL, EOMI - ENT ENT exam: Present: mucous membranes moist - Neck Neck exam: Present: normal inspection - Respiratory Respiratory exam: Present: normal lung sounds bilaterally, rales (Fine crackles to his lung base). Absent: respiratory distress - Cardiovascular Cardiovascular Exam: Present: regular rate, normal rhythm. Absent: systolic murmur, diastolic murmur, rubs, gallop - GI/Abdominal GI/Abdominal exam: Present: soft, normal bowel sounds - Rectal Rectal exam: Present: deferred - Extremities Exam Extremities exam: Present: normal inspection. Absent: pedal edema, joint swelling, calf tenderness - Back Exam Back exam: Present: normal inspection - Neurological Exam Neurological exam: Present: alert, oriented X3 - Psychiatric Psychiatric exam: Present: normal affect, normal mood - Skin Skin exam: Present: warm, dry, intact, normal color. Absent: rash ED Course Vital Signs 02/28/21 16:49 Temperature 98.7 F Pulse Rate 65 Respiratory 18 Rate Blood Pressure 173/96 [Left] O2 Sat by Pulse 99 Oximetry ED Medical Decision Making - Radiology Data Radiology results: report reviewed Chest x-ray shows pneumonia versus early pulmonary edema same that was seen in November 2020 - Medical Decision Making Patient 5-year-old male end-stage dialysis, hypertension and known CHF no acute respiratory distress ambulating well emergency department with no complaints speaking in full sentences complaining of chronic recurrent shortness of breath and coughing with no significant findings on examination with exception of fine crackles. He is ambulatory on his own power with no desaturation and no worsening in his symptoms. It is unclear if the patient did miss his dialysis episode today. Upon going to follow-up with the patient on this question and the results of his x-ray he was unable to be located for several minutes. It was later deemed that he had eloped Critical care attestation.: If time is entered above; I have spent that time in minutes in the direct care of this critically ill patient, excluding procedure time. ED Disposition Clinical Impression: CHF (congestive heart failure) Disposition: Z-07 ELOPED Is pt being admited?: No Does the pt Need Aspirin: No Condition: Undetermined Referrals: PRIMARY CARE, [Primary Care Provider] - 3-5 Days
== END 2021-02-28 20:20 | disposition left against medical advice (07) ==
LOC: ED 16:01
DX: I13.2 Hypertensive heart and chronic kidney disease with heart failure and with stage 5 chronic kidney disease, or end stage renal disease (principal); I50.9 Heart failure, unspecified; N18.6 End stage renal disease; J44.9 Chronic obstructive pulmonary disease, unspecified; Z79.899 Other long term (current) drug therapy; Z98.890 Other specified postprocedural states; Z99.2 Dependence on renal dialysis
CPT/HCPCS: 71046

== ENCOUNTER 2021-03-16 14:57 | Emergency (ER) | payer MEDICARE ==
[2021-03-16 15:59] LABS: Basophils % (Auto) 0.7 % (0.0-1.8); Eosinophils # (Auto) 0.6 K/mm3 (0.0-0.4); Eosinophils % (Auto) 8.6 % (0.0-4.3); Hematocrit 37.2 % (35.5-45.6); Hemoglobin 12.6 gm/dl (11.8-15.2); Lymphocytes # (Auto) 0.7 K/mm3 (1.2-5.4); Lymphocytes % (Auto) 9.9 % (13.4-35.0); Mean Corpuscular HGB Conc 34 % (32-34); Mean Corpuscular Volume 91 fl (84-94); Monocytes % (Auto) 14.4 % (0.0-7.3); Platelet Count 120 K/mm3 (140-440); Red Blood Count 4.09 M/mm3 (3.65-5.03); Red Cell Distribution Width 13.8 % (13.2-15.2)
[2021-03-16 16:03] LABS: Blood Urea Nitrogen 27 mg/dL (9-20); Calcium 10.8 mg/dL (8.4-10.2); Hemolysis Index 16
[2021-03-16 16:04] LABS: Alanine Aminotransferase < 5 units/L (7-56); BUN/Creatinine Ratio 3
[2021-03-16] MEDS ORDERED: FAMOTIDINE 20 MG/2 ML INJ IV ONE (18:11)
[2021-03-16] MEDS ORDERED: KETOROLAC 30 MG/1 ML INJ IV ONE (18:11)
[2021-03-16] MEDS ORDERED: ONDANSETRON 4 MG/2 ML INJ IV ONE (18:11)
--- NOTE | 2021-03-16 19:04 | Cat Scan Report ---
CT ABDOMEN AND PELVIS WITHOUT CONTRAST INDICATION: abd pain NV. TECHNIQUE: Axial CT images were obtained through the abdomen and pelvis without IV contrast. All CT scans at [facility] are performed using CT dose reduction for ALARA by means of automated exposure control. COMPARISON: None available. FINDINGS: LOWER CHEST: Moderate cardiomegaly. LIVER: No significant abnormality. GALLBLADDER: No significant abnormality. BILE DUCTS: No significant abnormality. PANCREAS: No significant abnormality. SPLEEN: No significant abnormality. ADRENALS: No significant abnormality. 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 Possible 3.5 cm solid left renal mass image 62 STOMACH and SMALL BOWEL: No significant abnormality. COLON: No significant abnormality. APPENDIX: No significant abnormality. PERITONEUM: No free fluid. No free air. No fluid collection. LYMPH NODES: Bulky left hyperdense retroperitoneal nodes, worst of which measures 5 cm image 53. Enla rged right retrocrural node measures 1.9 cm image 26 AORTA and ARTERIES: Moderate vascular calcifications. IVC and VEINS: No significant abnormality. URINARY BLADDER: No significant abnormality. REPRODUCTIVE ORGANS: No significant abnormality. ADDITIONAL FINDINGS: None. SKELETAL SYSTEM: No significant abnormality. IMPRESSION: 1. Possible 3.5 cm solid left renal mass. Recommend renal ultrasound for further characterization. 2. Moderate left periaortic retroperitoneal and mild right retrocrural adenopathy Signer Name: Gregory Alonzo MD Signed: 03/16/2021 7:00 PM Workstation Name: [id number]
--- NOTE | 2021-03-16 19:37 | Emergency Department Report ---
ED Abdominal Pain HPI - General Chief Complaint: Abdominal Pain Stated Complaint: LEFT SIDE BACK PAIN Time Seen by Provider: 03/16/21 18:07 Source: patient, EMS Mode of arrival: Ambulatory Limitations: No Limitations - History of Present Illness Initial Comments: Patient is a 55-year-old F [place] male with past medical history of end-stage renal disease who had dialysis today who is presenting with some central abdominal discomfort. Patient states that pain started last night. Had 2 episodes of nausea vomiting this morning. Nausea is improved. Patient states is generalized achy sensation in the central abdomen. There is no radiation. States he is passing flatus but has not had a bowel movement today. No history of any recent diarrhea. Denies any fevers chills cough cold or congestion. Severity scale (0 -10): 8 - Related Data Home Medications Medication Instructions Recorded Confirmed Last Taken Lisinopril [Zestril] 40 mg PO DAILY 02/11/17 12/29/18 09/16/18 Pravastatin Sodium [Pravastatin] 40 mg PO DAILY 02/11/17 12/29/18 09/16/18 Previous Rx's Medication Instructions Recorded Last Taken Type oxyCODONE /ACETAMINOPHEN [Percocet 1 tab PO Q4HR PRN #30 tab 01/01/19 Unknown Rx 5/325 mg] Cinacalcet [Sensipar] 30 mg PO QAM #30 tablet 03/23/19 Unknown Rx Sevelamer Carbonate [Renvela] 800 mg PO QAC #30 tablet 03/23/19 Unknown Rx amLODIPine 10 mg PO DAILY #60 tablet 03/23/19 Unknown Rx carvediloL [Coreg] 25 mg PO BID #60 tablet 03/23/19 Unknown Rx hydrALAZINE [Apresoline TAB] 75 mg PO TID #180 tablet 03/23/19 Unknown Rx lisinopriL [Zestril TAB] 40 mg PO DAILY #30 tablet 03/23/19 Unknown Rx Prednisone [predniSONE 10 mg 10 mg PO .TAPER #1 tab.ds.pk 06/16/20 Unknown Rx (6-Day Pack, 21 Tabs)] Ciprofloxacin HCl 500 mg PO BID #20 tablet 03/16/21 Unknown Rx Ondansetron [Zofran Odt] 4 mg PO Q8HR #10 tab.rapdis 03/16/21 Unknown Rx metroNIDAZOLE [Flagyl] 500 mg PO Q12HR #20 tab 03/16/21 Unknown Rx traMADoL [Ultram] 50 mg PO Q6HR PRN #12 tablet 03/16/21 Unknown Rx Allergies Allergy/AdvReac Type Severity Reaction Status Date / Time No Known Allergies Allergy Verified 03/16/21 15:09 ED Review of Systems ROS: Stated complaint: LEFT SIDE BACK PAIN Other details as noted in HPI Comment: All other systems reviewed and negative ED Past Medical Hx - Past Medical History Hx Hypertension: Yes Hx Congestive Heart Failure: Yes Hx Renal Disease: Yes Hx Kidney Stones: Yes Hx COPD: Yes (STATES HE BELIEVES HE IS) Hx HIV: No Additional medical history: dialysis pt,tues,thurs sat - Surgical History Additional Surgical History: aliceutroly JOHNSA - Social History Smoking Status: Never Smoker Substance Use Type: None - Medications Home Medications: Home Medications Medication Instructions Recorded Confirmed Last Taken Type Lisinopril [Zestril] 40 mg PO DAILY 02/11/17 12/29/18 09/16/18 History Pravastatin Sodium [Pravastatin] 40 mg PO DAILY 02/11/17 12/29/18 09/16/18 History oxyCODONE /ACETAMINOPHEN [Percocet 1 tab PO Q4HR PRN #30 tab 01/01/19 Unknown Rx 5/325 mg] Cinacalcet [Sensipar] 30 mg PO QAM #30 tablet 03/23/19 Unknown Rx Sevelamer Carbonate [Renvela] 800 mg PO QAC #30 tablet 03/23/19 Unknown Rx amLODIPine 10 mg PO DAILY #60 tablet 03/23/19 Unknown Rx carvediloL [Coreg] 25 mg PO BID #60 tablet 03/23/19 Unknown Rx hydrALAZINE [Apresoline TAB] 75 mg PO TID #180 tablet 03/23/19 Unknown Rx lisinopriL [Zestril TAB] 40 mg PO DAILY #30 tablet 03/23/19 Unknown Rx Prednisone [predniSONE 10 mg 10 mg PO .TAPER #1 tab.ds.pk 06/16/20 Unknown Rx (6-Day Pack, 21 Tabs)] Ciprofloxacin HCl 500 mg PO BID #20 tablet 03/16/21 Unknown Rx Ondansetron [Zofran Odt] 4 mg PO Q8HR #10 tab.rapdis 03/16/21 Unknown Rx metroNIDAZOLE [Flagyl] 500 mg PO Q12HR #20 tab 03/16/21 Unknown Rx traMADoL [Ultram] 50 mg PO Q6HR PRN #12 tablet 03/16/21 Unknown Rx ED Physical Exam - General Limitations: No Limitations General appearance: alert, in no apparent distress - Head Head exam: Present: atraumatic, normocephalic - Eye Eye exam: Present: normal appearance - ENT ENT exam: Present: mucous membranes moist - Neck Neck exam: Present: normal inspection - Respiratory Respiratory exam: Present: normal lung sounds bilaterally. Absent: respiratory distress, wheezes, rales, rhonchi - Cardiovascular Cardiovascular Exam: Present: regular rate, normal rhythm, normal heart sounds. Absent: systolic murmur, diastolic murmur, rubs, gallop - GI/Abdominal GI/Abdominal exam: Present: soft, tenderness (Central abdominal), normal bowel sounds. Absent: distended, guarding, rebound, rigid, diminished bowel sounds - Rectal Rectal exam: Present: deferred - Extremities Exam Extremities exam: Present: normal inspection - Back Exam Back exam: Present: normal inspection - Neurological Exam Neurological exam: Present: alert, oriented X3 - Psychiatric Psychiatric exam: Present: normal affect, normal mood - Skin Skin exam: Present: warm, dry, intact, normal color. Absent: rash ED Course Vital Signs 03/16/21 03/16/21 15:16 19:01 Temperature 97.5 F L 98.5 F Pulse Rate 64 Respiratory 20 Rate Blood Pressure 165/94 O2 Sat by Pulse 100 Oximetry ED Medical Decision Making - Lab Data Result diagrams: 03/16/21 15:26 03/16/21 15:26 Lab Results 03/16/21 03/16/21 03/16/21 Range/Units 15:26 15:26 15:26 WBC 6.7 (4.5-11.0) K/mm3 RBC 4.09 (3.65-5.03) M/mm3 Hgb 12.6 (11.8-15.2) gm/dl Hct 37.2 (35.5-45.6) % MCV 91 (84-94) fl MCH 31 (28-32) pg MCHC 34 (32-34) % RDW 13.8 (13.2-15.2) % Plt Count 120 L (140-440) K/mm3 Lymph % (Auto) 9.9 L (13.4-35.0) % [place] % (Auto) 14.4 H (0.0-7.3) % Eos % (Auto) 8.6 H (0.0-4.3) % Baso % (Auto) 0.7 (0.0-1.8) % Lymph # (Auto) 0.7 L (1.2-5.4) K/mm3 [place] # (Auto) 1.0 H (0.0-0.8) K/mm3 Eos # (Auto) 0.6 H (0.0-0.4) K/mm3 Baso # (Auto) 0.0 (0.0-0.1) K/mm3 Seg Neutrophils % 66.4 (40.0-70.0) % Seg Neutrophils # 4.4 (1.8-7.7) K/mm3 Sodium 134 L (137-145) mmol/L Potassium 3.9 (3.6-5.0) mmol/L Chloride 94.4 L (98-107) mmol/L Carbon Dioxide 23 (22-30) mmol/L Anion Gap 21 mmol/L BUN 27 H (9-20) mg/dL Creatinine 8.4 H (0.8-1.3) mg/dL Estimated GFR 8 ml/min BUN/Creatinine Ratio 3 % Glucose 96 (75-100) mg/dL Calcium 10.8 H (8.4-10.2) mg/dL Total Bilirubin 0.40 (0.1-1.2) mg/dL AST 13 (5-40) units/L ALT < 5 L (7-56) units/L Alkaline Phosphatase 58 (35-129) units/L Total Protein 8.0 (6.3-8.2) g/dL Albumin 4.0 (3.9-5) g/dL Albumin/Globulin Ratio 1.0 % Lipase 30 (13-60) units/L - Radiology Data [facility] [address] [place] [address] Cat Scan Report Signed Patient: ROSA LAY MR#: [id number] : 1965 Acct:[id number] Age/Sex: 55 / M ADM Date: 03/16/21 Loc: ED Attending Dr: Ordering Physician: RACHEL GRIDER MD Date of Service: 03/16/21 Procedure(s): CT abdomen pelvis wo con Accession Number(s): [id number] cc: RACHEL GRIDER MD CT ABDOMEN AND PELVIS WITHOUT CONTRAST INDICATION: abd pain NV. TECHNIQUE: Axial CT images were obtained through the abdomen and pelvis without IV contrast. All CT scans at this location are performed using CT dose reduction for ALARA by means of automated exposure control. COMPARISON: None available. FINDINGS: LOWER CHEST: Moderate cardiomegaly. LIVER: No significant abnormality. GALLBLADDER: No significant abnormality. BILE DUCTS: No significant abnormality. PANCREAS: No significant abnormality. SPLEEN: No significant abnormality. ADRENALS: No significant abnormality. 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 Possible 3.5 cm solid left renal mass image 62 STOMACH and SMALL BOWEL: No significant abnormality. COLON: No significant abnormality. APPENDIX: No significant abnormality. PERITONEUM: No free fluid. No free air. No fluid collection. LYMPH NODES: Bulky left hyperdense retroperitoneal nodes, worst of which measures 5 cm image 53. Enlarged right retrocrural node measures 1.9 cm image 26 AORTA and ARTERIES: Moderate vascular calcifications. IVC and VEINS: No significant abnormality. URINARY BLADDER: No significant abnormality. REPRODUCTIVE ORGANS: No significant abnormality. ADDITIONAL FINDINGS: None. SKELETAL SYSTEM: No significant abnormality. IMPRESSION: 1. Possible 3.5 cm solid left renal mass. Recommend renal ultrasound for further characterization. 2. Moderate left periaortic retroperitoneal and mild right retrocrural adenopathy Signer Name: Gregory Alonzo MD Signed: 03/16/2021 7:00 PM Workstation Name: [id number] Transcribed By: TL Dictated By: Gregory Alonzo MD Electronically Authenticated By: Gregory Alonzo MD Signed Date/Time: 03/16/21 1900 - Medical Decision Making Multiple pole large peritoneal and retroperitoneal lymph nodes present. Patient started on Cipro and Flagyl but will be referred to GI for further management. Critical care attestation.: If time is entered above; I have spent that time in minutes in the direct care of this critically ill patient, excluding procedure time. ED Disposition Clinical Impression: Abdominal lymphadenopathy Disposition: DC-01 TO HOME OR SELFCARE Is pt being admited?: No Does the pt Need Aspirin: No Condition: Stable Instructions: Lymphadenopathy Referrals: [facility] [Provider Group] - 3-5 Days MARCI MARTINES DO [Staff Physician] - 3-5 Days Time of Disposition: 19:35
[2021-03-16 20:27] VITALS: BP 193/107
== END 2021-03-16 20:27 | disposition home or self-care (01) ==
LOC: ED 14:57
DX: R59.0 Localized enlarged lymph nodes (principal); I11.0 Hypertensive heart disease with heart failure; I50.9 Heart failure, unspecified; J44.9 Chronic obstructive pulmonary disease, unspecified; Z98.890 Other specified postprocedural states; Z79.899 Other long term (current) drug therapy
CPT/HCPCS: 36415; 74176; 80053; 83690; 85025; 96374; 96375; 99284; J1885; J2405

== ENCOUNTER 2021-07-05 03:41 | Observation (INO) | payer MEDICARE ==
[2021-07-05] MEDS ORDERED: FUROSEMIDE 100 MG/10 ML INJ IV ONE (03:59)
--- NOTE | 2021-07-05 03:59 | Emergency Department Report ---
ED General Adult HPI - General Chief complaint: Dyspnea/Respdistress Stated complaint: BILL PUI?: No Time Seen by Provider: 07/05/21 03:51 Source: patient, EMS (Verbal report received from emergency medical services. EMS documentation not available at time of chart dictation ), RN notes reviewed, old records reviewed Mode of arrival: Stretcher Limitations: Physical Limitation - History of Present Illness Initial comments: The patient was evaluated in the emergency department for symptoms described in the history of present illness. He/she was evaluated in the context of the global COVID-19 pandemic, which necessitated consideration that the patient might be at risk for infection with the virus that causes COVID-19. Ins titutional protocols and algorithms that pertain to the evaluation of patients at risk for COVID-19 are in a state of rapid change based on information released by regulatory bodies including the CDC and federal and state organizations. These policies and algorithms were followed during the patient's care in the emergency department. Please note that these policies, procedures and recommendations changed on a rapid basis. Nephrology: Dr. Juana Zabala Past medical history: End-stage renal disease, hyperlipidemia, hypertension, COPD, fluid overload, not oxygen pending. The patient is a 55-year-old gentleman. He is brought to the hospital today by emergency medical services with a complaint of shortness of breath which is painless. The patient reports he has not had dialysis in a week. The patient denies headache, neck pain. The patient denies fever. The patient was hypoxic in the field with EMS. He was found to be hypertensive in the field, and here in the emergency room. He is also found to have JVD, crackles and rales. Patient presents consistent with acute pulmonary edema and hypertensive urgency/emergency. He has lower extremity edema, and produces urine scantly. His symptoms were improved with initiation of nitroglycerin drip. I personally administered 500 mcg of nitroglycerin IV push x2, which improved the patient's symptoms. This patient has presented in the past for fluid overload, and pulmonary edema. The patient denies exposure to Covid patients. -: Gradual Consistency: constant Improves with: rest Worsens with: movement Associated Symptoms: shortness of breath - Related Data Home Medications Medication Instructions Recorded Confirmed Last Taken Lisinopril [Zestril] 40 mg PO DAILY 02/11/17 12/29/18 09/16/18 Pravastatin Sodium [Pravastatin] 40 mg PO DAILY 02/11/17 12/29/18 09/16/18 Previous Rx's Medication Instructions Recorded Last Taken Type oxyCODONE /ACETAMINOPHEN [Percocet 1 tab PO Q4HR PRN #30 tab 01/01/19 Unknown Rx 5/325 mg] Cinacalcet [Sensipar] 30 mg PO QAM #30 tablet 03/23/19 Unknown Rx Sevelamer Carbonate [Renvela] 800 mg PO QAC #30 tablet 03/23/19 Unknown Rx amLODIPine 10 mg PO DAILY #60 tablet 03/23/19 Unknown Rx carvediloL [Coreg] 25 mg PO BID #60 tablet 03/23/19 Unknown Rx hydrALAZINE [Apresoline TAB] 75 mg PO TID #180 tablet 03/23/19 Unknown Rx lisinopriL [Zestril TAB] 40 mg PO DAILY #30 tablet 03/23/19 Unknown Rx Prednisone [predniSONE 10 mg 10 mg PO .TAPER #1 tab.ds.pk 06/16/20 Unknown Rx (6-Day Pack, 21 Tabs)] Ciprofloxacin HCl 500 mg PO BID #20 tablet 03/16/21 Unknown Rx Ondansetron [Zofran Odt] 4 mg PO Q8HR #10 tab.rapdis 03/16/21 Unknown Rx metroNIDAZOLE [Flagyl] 500 mg PO Q12HR #20 tab 03/16/21 Unknown Rx traMADoL [Ultram] 50 mg PO Q6HR PRN #12 tablet 03/16/21 Unknown Rx Allergies Allergy/AdvReac Type Severity Reaction Status Date / Time No Known Allergies Allergy Verified 03/16/21 15:09 ED Review of Systems ROS: Stated complaint: BILL Other details as noted in HPI Constitutional: malaise, weakness. denies: fever Eyes: denies: eye discharge ENT: congestion Respiratory: shortness of breath, SOB with exertion, SOB at rest Cardiovascular: dyspnea on exertion, orthopnea, edema. denies: chest pain Gastrointestinal: denies: abdominal pain Neurological: weakness Hematological/Lymphatic: denies: easy bleeding ED Past Medical Hx - Past Medical History Hx Hypertension: Yes Hx Congestive Heart Failure: Yes Hx Renal Disease: Yes Hx Kidney Stones: Yes Hx COPD: Yes (STATES HE BELIEVES HE IS) Hx HIV: No Additional medical history: dialysis pt,tues,thurs sat - Surgical History Additional Surgical History: martín CONCEPCION - Social History Smoking Status: Never Smoker Substance Use Type: None - Medications Home Medications: Home Medications Medication Instructions Recorded Confirmed Last Taken Type Lisinopril [Zestril] 40 mg PO DAILY 02/11/17 12/29/18 09/16/18 History Pravastatin Sodium [Pravastatin] 40 mg PO DAILY 02/11/17 12/29/18 09/16/18 History oxyCODONE /ACETAMINOPHEN [Percocet 1 tab PO Q4HR PRN #30 tab 01/01/19 Unknown Rx 5/325 mg] Cinacalcet [Sensipar] 30 mg PO QAM #30 tablet 03/23/19 Unknown Rx Sevelamer Carbonate [Renvela] 800 mg PO QAC #30 tablet 03/23/19 Unknown Rx amLODIPine 10 mg PO DAILY #60 tablet 03/23/19 Unknown Rx carvediloL [Coreg] 25 mg PO BID #60 tablet 03/23/19 Unknown Rx hydrALAZINE [Apresoline TAB] 75 mg PO TID #180 tablet 03/23/19 Unknown Rx lisinopriL [Zestril TAB] 40 mg PO DAILY #30 tablet 03/23/19 Unknown Rx Prednisone [predniSONE 10 mg 10 mg PO .TAPER #1 tab.ds.pk 06/16/20 Unknown Rx (6-Day Pack, 21 Tabs)] Ciprofloxacin HCl 500 mg PO BID #20 tablet 03/16/21 Unknown Rx Ondansetron [Zofran Odt] 4 mg PO Q8HR #10 tab.rapdis 03/16/21 Unknown Rx metroNIDAZOLE [Flagyl] 500 mg PO Q12HR #20 tab 03/16/21 Unknown Rx traMADoL [Ultram] 50 mg PO Q6HR PRN #12 tablet 03/16/21 Unknown Rx ED Physical Exam - General General appearance: alert, anxious, in distress - Head Head exam: Present: atraumatic, normocephalic - Eye Eye exam: Present: normal appearance, EOMI. Absent: nystagmus - ENT ENT exam: Present: normal exam, normal orophraynx, mucous membranes moist, normal external ear exam - Neck Neck exam: Present: normal inspection, full ROM. Absent: tenderness, meningismus - Respiratory Respiratory exam: Present: respiratory distress, rales, accessory muscle use. A bsent: rhonchi, stridor - Cardiovascular Cardiovascular Exam: Present: regular rate, normal rhythm, normal heart sounds, JVD. Absent: bradycardia, tachycardia, irregular rhythm, systolic murmur, diastolic murmur, rubs, gallop - GI/Abdominal GI/Abdominal exam: Present: soft. Absent: distended, tenderness, guarding, rebo und, rigid, pulsatile mass - Rectal Rectal exam: Present: deferred - Extremities Exam Extremities exam: Present: normal inspection (There is a right upper extremity fistula, without redness, pus or streaking.), full ROM, pedal edema (3-4+ edema noted in the bilateral lower extremities), other (2+ pulses noted in the bila teral upper and lower extremities. There is no palpable cord. negative Homans sign. Muscular compartments are soft. The pelvis is stable.). Absent: calf tenderness - Back Exam Back exam: Present: normal inspection. Absent: tenderness, CVA tenderness (R), CVA tenderness (L), paraspinal tenderness, vertebral tenderness - Neurological Exam Neurological exam: Present: alert, oriented X3, other (No facial droop. Tongue midline. Extraocular movements intact bilaterally. Facial sensation intact to light touch in V1, V2, V3 distribution bilaterally. 5 and a 5 strength in 4 extremities. Sensation intact to light touch in 4 extremities.). Absent: CN II-XII intact, motor sensory deficit - Psychiatric Psychiatric exam: Present: anxious - Skin Skin exam: Present: warm, dry, intact, normal color. Absent: rash ED Course Vital Signs 07/05/21 07/05/21 07/05/21 04:11 04:15 04:19 Temperature 98.1 F Pulse Rate 71 72 Respiratory 22 23 Rate Blood Pressure 202/111 [Left] O2 Sat by Pulse 91 95 Oximetry - Reevaluation(s) Reevaluation #1: 07/05/21 05:11 Differential diagnosis, including but not limited to: End-stage renal disease, missing dialysis metabolic acidosis, hypokalemia, azotemia, uremia, pulmonary edema, fluid overload Assessment and plan: 55-year-old gentleman, with evidence of pulmonary edema, manifest by marked hypertension, JVD, hypoxia, crackles, rales, chest x-ray findings, lower extremity edema. Patient placed on vehicle monitor technician. I administered high-dose nitroglycerin. He is currently being maintained on high- dose nitroglycerin. High-dose Lasix ordered. Do not suspect pneumonia at this time. Awaiting laboratory studies. Awaiting EKG. Multiple request made to nursing staff to please obtain EKG. Nursing team also encouraged/instructed to aggressively uptitrate nitroglycerin drip. 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 He will need to be admitted to the medical service for emergent hemodialysis. I discussed this with the patient. He articulated understanding. 07/05/21 05:15 Elevated troponin is likely a type II troponin leak. Laboratory studies reviewed and appreciated. Awaiting callback from patient's brim pouncing machine operator. 07/05/21 05:20 Dr Jovan Benitez to admit to ICU - Consultations Consultation #1: 07/05/21 05:22 Discussed history, physical, laboratory studies and imaging studies with Dr. Juana Zabala, the patient's private brim pouncing machine operator. He will arrange for emergent hemodialysis. ED Medical Decision Making - Lab Data Result diagrams: 07/05/21 04:06 07/05/21 04:06 Vital Signs 07/05/21 07/05/21 07/05/21 04:11 04:15 04:19 Temperature 98.1 F Pulse Rate 71 72 Respiratory 22 23 Rate Blood Pressure 202/111 [Left] O2 Sat by Pulse 91 95 Oximetry Lab Results 07/05/21 07/05/21 07/05/21 Range/Units 04:06 04:06 04:06 WBC 8.0 (4.5-11.0) K/mm3 RBC 2.94 L (3.65-5.03) M/mm3 Hgb 8.6 L (11.8-15.2) gm/dl Hct 26.5 L (35.5-45.6) % MCV 90 (84-94) fl MCH 29 (28-32) pg MCHC 32 (32-34) % RDW 16.7 H (13.2-15.2) % Plt Count 182 (140-440) K/mm3 Lymph % (Auto) 8.7 L (13.4-35.0) % [place] % (Auto) 5.8 (0.0-7.3) % Eos % (Auto) 5.1 H (0.0-4.3) % Baso % (Auto) 0.6 (0.0-1.8) % Lymph # (Auto) 0.7 L (1.2-5.4) K/mm3 [place] # (Auto) 0.5 (0.0-0.8) K/mm3 Eos # (Auto) 0.4 (0.0-0.4) K/mm3 Baso # (Auto) 0.1 (0.0-0.1) K/mm3 Seg Neutrophils % 79.8 H (40.0-70.0) % Seg Neutrophils # 6.4 (1.8-7.7) K/mm3 PT 15.6 H (12.2-14.9) Sec. INR 1.12 (0.87-1.13) Troponin T 0.052 H (0.00-0.029) ng/mL Albumin/Globulin Ratio 1.1 % Lab Results 07/05/21 07/05/21 07/05/21 Range/Units 04:06 04:06 04:06 WBC 8.0 (4.5-11.0) K/mm3 RBC 2.94 L (3.65-5.03) M/mm3 Hgb 8.6 L (11.8-15.2) gm/dl Hct 26.5 L (35.5-45.6) % MCV 90 (84-94) fl MCH 29 (28-32) pg MCHC 32 (32-34) % RDW 16.7 H (13.2-15.2) % Plt Count 182 (140-440) K/mm3 Lymph % (Auto) 8.7 L (13.4-35.0) % [place] % (Auto) 5.8 (0.0-7.3) % Eos % (Auto) 5.1 H (0.0-4.3) % Baso % (Auto) 0.6 (0.0-1.8) % Lymph # (Auto) 0.7 L (1.2-5.4) K/mm3 [place] # (Auto) 0.5 (0.0-0.8) K/mm3 Eos # (Auto) 0.4 (0.0-0.4) K/mm3 Baso # (Auto) 0.1 (0.0-0.1) K/mm3 Seg Neutrophils % 79.8 H (40.0-70.0) % Seg Neutrophils # 6.4 (1.8-7.7) K/mm3 PT 15.6 H (12.2-14.9) Sec. INR 1.12 (0.87-1.13) Sodium 143 (137-145) mmol/L Potassium 5.3 H (3.6-5.0) mmol/L Chloride 100.5 (98-107) mmol/L Carbon Dioxide 16 L (22-30) mmol/L Anion Gap 32 mmol/L BUN 101 H (9-20) mg/dL Creatinine 13.4 H (0.8-1.3) mg/dL Estimated GFR 5 ml/min BUN/Creatinine Ratio 8 % Glucose 89 (75-100) mg/dL Calcium 10.8 H (8.4-10.2) mg/dL Magnesium 2.40 H (1.7-2.3) mg/dL Total Bilirubin 0.20 (0.1-1.2) mg/dL AST 11 (5-40) units/L ALT 8 (7-56) units/L Alkaline Phosphatase 53 (35-129) units/L Troponin T 0.052 H (0.00-0.029) ng/mL Total Protein 6.8 (6.3-8.2) g/dL Albumin 3.5 L (3.9-5) g/dL Albumin/Globulin Ratio 1.1 % - EKG Data -: EKG Interpreted by [facility] EKG shows normal: sinus rhythm Rate: normal - EKG Data 07/05/21 05:24 EKG is interpreted at 5: 2 0 a.m. Sinus rhythm, rate 74 bpm. Borderline leftward axis deviation. Left anterior fascicular block. Left ventricular hypertrophy. Symmetric peak T waves. QTC p rolonged. Motion artifact. Abnormal EKG. Not a STEMI. Normal P wave axis. - Radiology Data Radiology results: pending, report reviewed, image reviewed CHEST 1 VIEW 07/05/2021 3:21 AM INDICATION / CLINICAL INFORMATION: Dyspnea. COMPARISON: 06/30 2021 FINDINGS: SUPPORT DEVICES: None. HEART / MEDIASTINUM: Cardiomegaly LUNGS / PLEURA: Diffuse bilateral pulmonary opacities No pneumothorax. ADDITIONAL FINDINGS: No significant additional findings. IMPRE SSION: 1. Diffuse bilateral pulmonary opacities Signer Name: Levi Mathias MD Signed: 07/05/2021 3:36 AM Workstation Name: [id number] Critical Care Time: Yes Critical care time in (mins) excluding proc time.: 35 Critical care attestation.: If time is entered above; I have spent that time in minutes in the direct care of this critically ill patient, excluding procedure time. ED Disposition Clinical Impression: Volume overload, ESRD needing dialysis, Acute respiratory failure with hypoxia, Pulmonary edema, Shortness of breath, Metabolic acidosis Disposition: 09 ADMITTED INPATIENT Is pt being admited?: Yes Does the pt Need Aspirin: No Condition: Serious Instructions: Pulmonary Edema (ED)
[2021-07-05] MEDS ORDERED: NITROGLYCERIN DRIP 50 MG/250 ML BOTTLE IV SCH (04:00)
[2021-07-05 04:39] LABS: Basophils # (Auto) 0.1 K/mm3 (0.0-0.1); Basophils % (Auto) 0.6 % (0.0-1.8); Eosinophils # (Auto) 0.4 K/mm3 (0.0-0.4); Eosinophils % (Auto) 5.1 % (0.0-4.3); Hematocrit 26.5 % (35.5-45.6); Hemoglobin 8.6 gm/dl (11.8-15.2); Lymphocytes # (Auto) 0.7 K/mm3 (1.2-5.4); Lymphocytes % (Auto) 8.7 % (13.4-35.0); Mean Corpuscular HGB Conc 32 % (32-34); Mean Corpuscular Volume 90 fl (84-94); Monocytes # (Auto) 0.5 K/mm3 (0.0-0.8); Monocytes % (Auto) 5.8 % (0.0-7.3); Platelet Count 182 K/mm3 (140-440); Red Blood Count 2.94 M/mm3 (3.65-5.03); Red Cell Distribution Width 16.7 % (13.2-15.2)
--- NOTE | 2021-07-05 04:41 | XRay Report ---
CHEST 1 VIEW 07/05/2021 3:21 AM INDICATION / CLINICAL INFORMATION: Dyspnea. COMPARISON: 06/30 2021 FINDINGS: SUPPORT DEVICES: None. HEART / MEDIASTINUM: Cardiomegaly LUNGS / PLEURA: Diffuse bilateral pulmonary opacities No pneumothorax. ADDITIONAL FINDINGS: No significant additional findings. IMPRESSION: 1. Diffuse bilateral pulmonary opacities Signer Name: Levi Mathias MD Signed: 07/05/2021 4:36 AM Workstation Name: [email or web address]
[2021-07-05 04:50] LABS: INR 1.12 (0.87-1.13)
[2021-07-05 04:55] LABS: Albumin 3.5 g/dL (3.9-5); Calcium 10.8 mg/dL (8.4-10.2)
[2021-07-05 05:26] LABS: Chol/HDL Ratio 2.2 %
[2021-07-05] MEDS ORDERED: ONDANSETRON 4 MG/2 ML INJ IV PRN (05:30)
[2021-07-05] MEDS ORDERED: ACETAMINOPHEN 325 MG TAB PO PRN (05:30)
[2021-07-05] MEDS ORDERED: MAGNESIUM HYDROXIDE (MOM) ORAL LIQD UDC PO PRN (05:30)
[2021-07-05] MEDS ORDERED: MORPHINE 2 MG/1 ML INJ IV PRN (05:30)
[2021-07-05] MEDS ORDERED: MORPHINE 4 MG/1 ML INJ IV PRN (05:30)
--- NOTE | 2021-07-05 05:44 | History and Physical Report ---
History of Present Illness Date of examination: 07/05/21 Date of admission: 07/05/2021 Chief complaint: Shortness of breath History of present illness: 55-year-old -Hung[place] male with known history of hypertension, hyperlipidemia, COPD, end-stage renal disease on dialysis on Tuesdays, and Saturday brought into the emergency room today by EMS complaining of shortness of breath. Patient denies any chest pain, no fever or chills, no nausea vomiting and no abdominal pain. He admits she has not gone for his dialysis for about a week and has been having progressive lower extremity swelling. In route to the hospital patient was said to be hypoxic and blood pressure was said to be quite elevated. Patient states that he still makes some urine. Upon arrival in the emergency room patient was started on nitroglycerin drip, Work-up in the emergency room reveals potassium of 5.3, BUN of 101 and creatinine of 13.4. BNP 34,039 Past History Past Medical History: dialysis (On Tuesdays, and Saturday), ESRD, heart failure, hypertension, hyperlipidemia, other (Kidney stones) Past Surgical History: Other (Fistula placement right upper extremity) Social history: no significant social history Family history: no significant family history Medications and Allergies Allergies Allergy/AdvReac Type Severity Reaction Status Date / Time No Known Allergies Allergy Verified 03/16/21 15:09 Home Medications Medication Instructions Recorded Confirmed Last Taken Type Lisinopril [Zestril] 40 mg PO DAILY 02/11/17 12/29/18 09/16/18 History Pravastatin Sodium [Pravastatin] 40 mg PO DAILY 02/11/17 12/29/18 09/16/18 History oxyCODONE /ACETAMINOPHEN [Percocet 1 tab PO Q4HR PRN #30 tab 01/01/19 Unknown Rx 5/325 mg] Cinacalcet [Sensipar] 30 mg PO QAM #30 tablet 03/23/19 Unknown Rx Sevelamer Carbonate [Renvela] 800 mg PO QAC #30 tablet 03/23/19 Unknown Rx amLODIPine 10 mg PO DAILY #60 tablet 03/23/19 Unknown Rx carvediloL [Coreg] 25 mg PO BID #60 tablet 03/23/19 Unknown Rx hydrALAZINE [Apresoline TAB] 75 mg PO TID #180 tablet 03/23/19 Unknown Rx lisinopriL [Zestril TAB] 40 mg PO DAILY #30 tablet 03/23/19 Unknown Rx Prednisone [predniSONE 10 mg 10 mg PO .TAPER #1 tab.ds.pk 06/16/20 Unknown Rx (6-Day Pack, 21 Tabs)] Ciprofloxacin HCl 500 mg PO BID #20 tablet 03/16/21 Unknown Rx Ondansetron [Zofran Odt] 4 mg PO Q8HR #10 tab.rapdis 03/16/21 Unknown Rx metroNIDAZOLE [Flagyl] 500 mg PO Q12HR #20 tab 03/16/21 Unknown Rx traMADoL [Ultram] 50 mg PO Q6HR PRN #12 tablet 03/16/21 Unknown Rx Active Meds: Active Medications Acetaminophen (Acetaminophen 325 Mg Tab) 650 mg PO Q6H PRN PRN Reason: Pain MILD(1-3)/Fever >100.5/OLIVAS Furosemide (Furosemide 40 Mg/4 Ml Inj) 40 mg IV BID@0600,1800 DANITA Heparin Sodium (Porcine) (Heparin 5,000 Unit/1 Ml Vial) 5,000 unit SUB-Q Q8HR DANITA Nitroglycerin/Dextrose (Tridil Drip 50mg/250ml) 50 mg in 250 mls @ 3 mls/hr IV TITR DANITA; Protocol Last Titration: 07/05/21 05:32 Dose: 25 mcg/min, 7.5 mls/hr Documented by: Magnesium Hydroxide (Magnesium Hydroxide (Mom) Oral Liqd Udc) 30 ml PO Q4H PRN PRN Reason: Constipation Morphine Sulfate (Morphine 2 Mg/1 Ml Inj) 2 mg IV Q4H PRN PRN Reason: Pain, Moderate (4-6) Morphine Sulfate (Morphine 4 Mg/1 Ml Inj) 4 mg IV Q4H PRN PRN Reason: Pain , Severe (7-10) Ondansetron HCl (Ondansetron 4 Mg/2 Ml Inj) 4 mg IV Q8H PRN PRN Reason: Nausea And Vomiting Sodium Chloride (Sodium Chloride 0.9% 10 Ml Flush Syringe) 10 ml IV BID DANITA Sodium Chloride (Sodium Chloride 0.9% 10 Ml Flush Syringe) 10 ml IV PRN PRN PRN Reason: LINE FLUSH Review of Systems Constitutional: no fever, no chills Ears, nose, mouth and throat: no nasal congestion, no sore throat Cardiovascular: no chest pain, no palpitations Respiratory: shortness of breath, no cough Gastrointestinal: no nausea, no vomiting, no diarrhea Genitourinary Male: no dysuria, no hematuria, no flank pain, no nocturia Musculoskeletal: no neck pain, no low back pain Integumentary: no rash, no pruritis Neurological: no headaches, no confusion Psychiatric: no anxiety, no depression Endocrine: no polydipsia, no polyuria, no nocturia Exam - Constitutional Vitals: Temp Pulse Resp BP Pulse Ox 98.1 F 72 23 202/111 95 07/05/21 04:19 07/05/21 04:15 07/05/21 04:15 07/05/21 04:19 07/05/21 04:15 General appearance: Present: mild distress, well-nourished - EENT Eyes: Present: PERRL, EOM intact. Absent: scleral icterus ENT: hearing intact, clear oral mucosa, dentition normal - Neck Neck: Present: supple, normal ROM - Respiratory Respiratory effort: normal Respiratory: bilateral: rales - Cardiovascular Rhythm: regular Heart Sounds: Present: S1 & S2. Absent: systolic murmur, diastolic murmur - Extremities Extremities: no ischemia, pulses intact, pulses symmetrical, normal temperature, normal color, Full ROM Extremity abnormal: edema (2+ bilateral lower extremity edema) Peripheral Pulses: within normal limits - Abdominal General gastrointestinal: Present: soft, non-tender, non-distended, normal bowel sounds. Absent: mass - Integumentary Integumentary: Present: clear, warm, dry, normal turgor. Absent: rash - Musculoskeletal Musculoskeletal: strength equal bilaterally - Psychiatric Psychiatric: appropriate mood/affect, intact judgment & insight, memory intact, cooperative - Neurologic Neurologic: CNII-XII intact, no focal deficits, moves all extremities HEART Score - HEART Score Troponin: Troponin T 0.052 ng/mL (0.00-0.029) H 07/05/21 04:06 Results - Labs CBC & Chem 7: 07/05/21 04:06 07/05/21 04:06 Labs: Abnormal lab results 07/05/21 07/05/21 07/05/21 Range/Units 04:06 04:06 04:06 RBC 2.94 L (3.65-5.03) M/mm3 Hgb 8.6 L (11.8-15.2) gm/dl Hct 26.5 L (35.5-45.6) % RDW 16.7 H (13.2-15.2) % Lymph % (Auto) 8.7 L (13.4-35.0) % Eos % (Auto) 5.1 H (0.0-4.3) % Lymph # (Auto) 0.7 L (1.2-5.4) K/mm3 Seg Neutrophils % 79.8 H (40.0-70.0) % PT 15.6 H (12.2-14.9) Sec. Potassium 5.3 H (3.6-5.0) mmol/L Carbon Dioxide 16 L (22-30) mmol/L BUN 101 H (9-20) mg/dL Creatinine 13.4 H (0.8-1.3) mg/dL Calcium 10.8 H (8.4-10.2) mg/dL Magnesium 2.40 H (1.7-2.3) mg/dL Troponin T 0.052 H (0.00-0.029) ng/mL NT-Pro-B Natriuret Pep (0-900) pg/mL Albumin 3.5 L (3.9-5) g/dL 07/05/21 Range/Units 04:06 RBC (3.65-5.03) M/mm3 Hgb (11.8-15.2) gm/dl Hct (35.5-45.6) % RDW (13.2-15.2) % Lymph % (Auto) (13.4-35.0) % Eos % (Auto) (0.0-4.3) % Lymph # (Auto) (1.2-5.4) K/mm3 Seg Neutrophils % (40.0-70.0) % PT (12.2-14.9) Sec. Potassium (3.6-5.0) mmol/L Carbon Dioxide (22-30) mmol/L BUN (9-20) mg/dL Creatinine (0.8-1.3) mg/dL Calcium (8.4-10.2) mg/dL Magnesium (1.7-2.3) mg/dL Troponin T (0.00-0.029) ng/mL NT-Pro-B Natriuret Pep 06980 H (0-900) pg/mL Albumin (3.9-5) g/dL Assessment and Plan - Patient Problems (1) Pulmonary edema Status: Acute Plan to address problem: Patient will require immediate dialysis. Consult placed to nephrology for evaluation and recommendations. (2) ESRD needing dialysis Status: Chronic Plan to address problem: Patient missed his dialysis for about a week. He gets dialysis on Tuesdays, and Saturdays. Will await nephrology evaluation. (3) Hyperkalemia Status: Acute Plan to address problem: Secondary to end-stage renal disease. Awaits dialysis. Will monitor for potassium levels. (4) Hypertensive urgency Status: Acute Plan to address problem: Patient currently on nitroglycerin drip. We will monitor vitals closely. (5) DVT prophylaxis Status: Acute Plan to address problem: Patient placed on subcutaneous heparin (6) Full code status Status: Acute Plan to address problem: Patient is full code.
[2021-07-05] MEDS ORDERED: FUROSEMIDE 40 MG/4 ML INJ IV SCH (06:00)
[2021-07-05] MEDS ORDERED: HEPARIN 5,000 UNIT/1 ML VIAL SUB-Q SCH (06:00)
[2021-07-05] MEDS ORDERED: HEPARIN 10,000 UNITS/10 ML VIAL IV PRN (06:14)
[2021-07-05] MEDS ORDERED: SODIUM CHLORIDE 0.9% 100 ML IV PRN (06:14)
--- NOTE | 2021-07-05 06:16 | Event Note ---
Date: 07/05/21 Patient need urgent hemodialysis. Orders placed.
[2021-07-05] MEDS ORDERED: hydrALAZINE 25 MG TAB PO SCH (09:00)
--- NOTE | 2021-07-05 09:37 | Consultation ---
History of Present Illness - Reason for Consult Consult date: 07/05/21 end stage renal disease, hyperkalemia, accelerated hypertension - History of Present Illness The patient is a 55 YO male who is known to our service with history significant for ESRD on HD (TTS), HTN, HLD, COPD and Kidney mass who presented to [facility] ED 07/05/2021 by EMS complaining of shortness of breath that started last night. He missed the past 2 hemodialysis sessions. He also reports LE swelling, abdominal distention, cough and orthopnea. Pt denies fever, chills, hemoptysis, CP, N, V, D, abd pain, dizziness or syncope. Intial BP was 196/116. CXR showed diffuse b/l pulmonary opacities. He was started on nitroglycerin drip. Labs significant for K 5.3, BUN 101, Creatinine of 13.4 and BNP 34,039. Nephrology was consulted for further evaluation Past History Past Medical History: dialysis (On Tuesdays, and Saturday), ESRD, heart failure, hypertension, hyperlipidemia, other (Kidney stones) Past Surgical History: Other (Fistula placement right upper extremity) Social history: no significant social history Family history: no significant family history Medications and Allergies Allergies Allergy/AdvReac Type Severity Reaction Status Date / Time No Known Allergies Allergy Verified 03/16/21 15:09 Home Medications Medication Instructions Recorded Confirmed Last Taken Type Lisinopril [Zestril] 40 mg PO DAILY 02/11/17 12/29/18 09/16/18 History Pravastatin Sodium [Pravastatin] 40 mg PO DAILY 02/11/17 12/29/18 09/16/18 History oxyCODONE /ACETAMINOPHEN [Percocet 1 tab PO Q4HR PRN #30 tab 01/01/19 Unknown Rx 5/325 mg] Cinacalcet [Sensipar] 30 mg PO QAM #30 tablet 03/23/19 Unknown Rx Sevelamer Carbonate [Renvela] 800 mg PO QAC #30 tablet 03/23/19 Unknown Rx amLODIPine 10 mg PO DAILY #60 tablet 03/23/19 Unknown Rx carvediloL [Coreg] 25 mg PO BID #60 tablet 03/23/19 Unknown Rx hydrALAZINE [Apresoline TAB] 75 mg PO TID #180 tablet 03/23/19 Unknown Rx lisinopriL [Zestril TAB] 40 mg PO DAILY #30 tablet 03/23/19 Unknown Rx Prednisone [predniSONE 10 mg 10 mg PO .TAPER #1 tab.ds.pk 06/16/20 Unknown Rx (6-Day Pack, 21 Tabs)] Ciprofloxacin HCl 500 mg PO BID #20 tablet 03/16/21 Unknown Rx Ondansetron [Zofran Odt] 4 mg PO Q8HR #10 tab.rapdis 03/16/21 Unknown Rx metroNIDAZOLE [Flagyl] 500 mg PO Q12HR #20 tab 03/16/21 Unknown Rx traMADoL [Ultram] 50 mg PO Q6HR PRN #12 tablet 03/16/21 Unknown Rx Active Meds: Active Medications Acetaminophen (Acetaminophen 325 Mg Tab) 650 mg PO Q6H PRN PRN Reason: Pain MILD(1-3)/Fever >100.5/OLIVAS Amlodipine Besylate (Amlodipine 10 Mg Tab) 10 mg PO QDAY [facility] Last Admin: 07/05/21 09:36 Dose: Not Given Documented by: Furosemide (Furosemide 40 Mg/4 Ml Inj) 40 mg IV BID@0600,1800 [facility] Last Admin: 07/05/21 05:49 Dose: Not Given Documented by: Heparin Sodium (Porcine) (Heparin 5,000 Unit/1 Ml Vial) 5,000 unit SUB-Q Q8HR [facility] Last Admin: 07/05/21 05:57 Dose: 5,000 unit Documented by: Heparin Sodium (Porcine) (Heparin 10,000 Units/10 Ml Vial) 3,000 unit IV ALISSA PRN PRN Reason: hemodialysis Hydralazine HCl (Hydralazine 25 Mg Tab) 75 mg PO Q8HR [facility] Last Admin: 07/05/21 09:26 Dose: Not Given Documented by: Nitroglycerin/Dextrose (Tridil Drip 50mg/250ml) 50 mg in 250 mls @ 3 mls/hr IV TITR DANITA; Protocol Last Titration: 07/05/21 07:24 Dose: 75 mcg/min, 22.5 mls/hr Documented by: Sodium Chloride (Nacl 0.9%) 100 mls @ 999 mls/hr IV ALISSA PRN PRN Reason: Hypotension Magnesium Hydroxide (Magnesium Hydroxide (Mom) Oral Liqd Udc) 30 ml PO Q4H PRN PRN Reason: Constipation Morphine Sulfate (Morphine 2 Mg/1 Ml Inj) 2 mg IV Q4H PRN PRN Reason: Pain, Moderate (4-6) Morphine Sulfate (Morphine 4 Mg/1 Ml Inj) 4 mg IV Q4H PRN PRN Reason: Pain , Severe (7-10) Ondansetron HCl (Ondansetron 4 Mg/2 Ml Inj) 4 mg IV Q8H PRN PRN Reason: Nausea And Vomiting Sodium Chloride (Sodium Chloride 0.9% 10 Ml Flush Syringe) 10 ml IV BID DANITA Last Admin: 07/05/21 09:36 Dose: 10 ml Documented by: Sodium Chloride (Sodium Chloride 0.9% 10 Ml Flush Syringe) 10 ml IV PRN PRN PRN Reason: LINE FLUSH Review of Systems All systems: negative Exam - Vital Signs Vital signs: Vital Signs Pulse Resp Pulse Ox 71 22 91 07/05/21 04:11 07/05/21 04:11 07/05/21 04:11 Results - Lab Results 07/05/21 04:06 07/05/21 04:06 Most recent lab results Calcium 10.8 mg/dL (8.4-10.2) H 07/05/21 04:06 Magnesium 2.40 mg/dL (1.7-2.3) H 07/05/21 04:06 Assessment and Plan 1. ESRD: Patient regular schedule is TTS. He missed the last 2 sessions of hemodialysis. Presented with volume overload and uncontrolled HTN. HD today. 2. FEN: Volume overload, 3 lts of UF with HD today as tolerated. Hyperkalemia, hemodialysis today. Metabolic acidosis, HD today. Low calcium bath. Monitor lytes and volume status. 3. Uncontrolled HTN: Likely from volume overload. Resume home meds. Monitor BP after HD. Advised to limit fluid intake. 4. L kidney mass: Patient was seen by Urologist on 04/17/2021. Pt didn't do the imaging ordered. CT chest, abdomen & pelvis w / wo ordered. Monitor. 5. Anemia, POA: 2/2 ESRD. Epogen when BP is better. Subjective: Patient was seen and examined at the bedside while on HD. General Appearance: General appearance: well-developed, thin built, appears stated age, no distress, NC O2 EENT: ATNC, GAYLE, hearing intact, vision intact Neck: neck supple, trachea midline Respiratory: bibasal rales Heart: regular, S1S2, no murmur Abdomen: distended, NT, BS heard Integumentary: no rash, warm and dry Neurologic: no focal deficit, no asterixis, alert and oriented x3 Ext: LE 1+ edema noted Hemodialysis access: R arm AVF
[2021-07-05] MEDS ORDERED: amLODIPine 10 MG TAB PO SCH (10:00)
[2021-07-05 11:35] LABS: Hepatitis C Virus Antibody Non-Reactive (NonReactive)
[2021-07-05 11:44] LABS: Hepatitis B Surface Antigen Nonreactive (Negative)
--- NOTE | 2021-07-05 12:18 | Event Note ---
Date: 07/05/21 Patient seen and examined. He was undergoing hemodialysis. He has missed his last 2 HD appointments. Reported improvement in shortness of breath on 4 L nasal cannula.
[2021-07-05 13:12] VITALS: BP 168/105
--- NOTE | 2021-07-05 16:06 | Discharge Summary ---
Providers - Providers Date of Admission: 07/05/21 05:20 Date of discharge: 07/05/21 Attending physician: DORIS DUTTA MD 07/05/21 03:53 Consult to Physician [CONS] Urgent Comment: Consulting Provider: JOSEPH QUIROZ Physician Instructions: Reason For Exam: esrd Primary care physician: SUSY COLE MD Hospitalization Reason for admission: Acute hypoxic respiratory failure and missed HD Condition: Serious Hospital course: 55-year-old male who presented with shortness of breath after missing h emodialysis. Patient was found to be in acute hypoxic respiratory failure. Was started on supplemental O2 and emergently dialyzed. After dialysis, patient no longer required oxygen and wanted to leave. Discussed need pros and cons of leaving. Patient reports that he has medications at home and will follow up with dialysis as scheduled. Patient signed AMA paperwork and left. Disposition: AGAINST MEDICAL ADVICE Final Discharge Diagnosis (Prints w/discharge instructions): Acute hypoxic respiratory failure. Volume overload. Hyperkalemia. ESRD on HD Time spent for discharge: 10 minutes Core Measure Documentation - Palliative Care Palliative Care/ Comfort Measures: Not Applicable - Core Measures Any of the following diagnoses?: none Exam - Physical Exam Narrative exam: GENERAL: Well-developed well-nourished. Sitting in a chair, no acute distress HEENT: Normocephalic. Atraumatic. CHEST/LUNGS: CTAB on room air HEART/CARDIOVASCULAR: RRR. No murmur, rubs or gallops appreciated. ABDOMEN: +BS. NT/ND. NEURO: No focal motor deficit. Follows all commands and is ambulatory. MUSCULOSKELETAL: No joint effusion EXTREMITIES: Left upper extremity AV fistula bandaged. PSYCH: Cooperative. - Constitutional Vitals: Temp Pulse Resp BP Pulse Ox 98.4 F 94 H 18 168/105 94 07/05/21 12:30 07/05/21 12:30 07/05/21 12:30 07/05/21 12:30 07/05/21 12:30 Plan Follow up with: SUSY COLE MD [Primary Care Provider] - 7 Days
--- NOTE | 2021-07-05 17:47 | Electrocardiograph Report ---
[facility] Test Date: 2021-07-05 Test Time: 05:20:44 Pat Name: ROSA LAY Department: Room: [place] [address] Gender: M Statistics Intern: AZRA : 1965 Requested By: ARLEY KEANE Order Number: [id number] Reading MD: Sonny Matt Measurements Intervals [place] Rate: 74 P: 36 OK: 143 QRS: 3 QRSD: 93 T: 56 QT: 410 QTc: 456 Interpretive Statements Sinus rhythm Probable left ventricular hypertrophy Anterior Q waves, possibly due to LVH No previous ECG available for comparison Electronically Signed On 07-05-2021 17:46:46 EDT by Sonny Matt
== END 2021-07-05 22:48 | disposition left against medical advice (07) ==
LOC: ED 03:41 → CC1 05:20
PROVIDERS: ADMIT Internal Medicine Geriatric Medicine; ATTEND Student in an Organized Health Care Education/Training Program
DX: J96.01 Acute respiratory failure with hypoxia (principal); E87.70 Fluid overload, unspecified; I16.0 Hypertensive urgency; I13.2 Hypertensive heart and chronic kidney disease with heart failure and with stage 5 chronic kidney disease, or end stage renal disease; I50.9 Heart failure, unspecified; N18.6 End stage renal disease; J44.9 Chronic obstructive pulmonary disease, unspecified; J81.1 Chronic pulmonary edema; D63.1 Anemia in chronic kidney disease; E87.2 Acidosis; E78.5 Hyperlipidemia, unspecified; E87.5 Hyperkalemia; Z99.2 Dependence on renal dialysis; Z87.442 Personal history of urinary calculi; Z79.899 Other long term (current) drug therapy; Z98.890 Other specified postprocedural states
CPT/HCPCS: 36415; 71045; 80053; 80061; 80074; 83735; 83880; 84484; 85025; 85610; 93005; 96365; 96366; 96372; 96375; 99291; G0257; G0378; J1644; J1940

== ENCOUNTER 2021-08-30 09:13 | Observation (INO) | payer MEDICARE ==
[2021-08-30] MEDS ORDERED: ONDANSETRON 4 MG/2 ML INJ IV ONE (09:49)
[2021-08-30] MEDS ORDERED: ACETAMINOPHEN 500 MG TAB PO ONE (09:49)
[2021-08-30] MEDS ORDERED: MORPHINE 4 MG/1 ML INJ IV ONE (09:49)
[2021-08-30 10:19] LABS: Hematocrit 33.2 % (35.5-45.6); Hemoglobin 10.5 gm/dl (11.8-15.2); Mean Corpuscular HGB Conc 32 % (32-34); Mean Corpuscular Volume 88 fl (84-94); Platelet Count 180 K/mm3 (140-440); Red Blood Count 3.79 M/mm3 (3.65-5.03); Red Cell Distribution Width 17.5 % (13.2-15.2)
[2021-08-30 10:36] LABS: Calcium 10.2 mg/dL (8.4-10.2)
--- NOTE | 2021-08-30 11:01 | Cat Scan Report ---
CT CHEST, ABDOMEN, AND PELVIS WITHOUT CONTRAST INDICATION / CLINICAL INFORMATION: left flank pain severe left renal mass. TECHNIQUE: Axial CT images were obtained through the chest, abdomen, and pelvis without contrast. All CT scans at this location are performed using CT dose reduction for ALARA by means of automated expo sure control. COMPARISON: 03/16/2021 FINDINGS: CHEST: HEART: Cardiomegaly. CORONARY ARTERY CALCIFICATION: Moderate. THORACIC AORTA: Mild atherosclerotic calcification without acute abnormality. MEDIASTINUM / TRUE: Numerous mediastinal and hilar as calcified nodes. There are prominent periesopha geal lymph nodes with the largest measuring up to 2.0 cm in short axis (series 2 image 33) PLEURA: No pleural effusion. No pneumothorax. LUNGS: Mild prominence of the interlobular septa. Multiple scattered sub-6 mm subpleural nodules. ADDITIONAL CHEST FINDINGS: None. ABDOMEN/PELVIS: AORTA / ARTERIES: Moderate atherosclerotic calcification without acute abnormality. IVC / VEINS: No significant abnormality. LYMPH NODES: Redemonstrated and enlarged retroperitoneal lymph nodes. Redemonstrated retrocrural lymp h node now measuring 2.3 cm, previously 1.9 cm. COLON: No significant abnormality. APPENDIX: Not visualized. STOMACH / SMALL BOWEL: No significant abnormality. PERITONEUM: No free fluid. No free air. No fluid collection. LIVER: No significant abnormality. GALLBLADDER: No significant abnormality. BILE DUCTS: No significant abnormality. PANCREAS: No significant abnormality. SPLEEN: No significant abnormality. ADRENALS: No significant abnormality. RIGHT KIDNEY / URETER: No significant change in multicystic atrophic appearance. LEFT KIDNEY / URETER: No significant change in multicystic atrophic appearance with redemonstrated so lid component in the lower polar region, unchanged. URINARY BLADDER: No significant abnormality. REPRODUCTIVE ORGANS: No significant abnormality. SKELETAL SYSTEM: No significant abnormality. ADDITIONAL FINDINGS: None. IMPRESSION: 1. No significant change in the appearance of the bilateral kidneys, specifically the previously seen solid left renal mass is unchanged compared to prior CT. 2. Interval enlargement of multiple retroperitoneal lymph nodes. There is interval enlargement of a r etrocrural lymph node. Multiple prominent periesophageal lymph nodes. There is also multiple mediasti nal hilar calcite lymph nodes. This lymphadenopathy is nonspecific but may represent sarcoidosis. 3. Interlobular septal thickening, as well as peripheral nodularity of the lungs. This too may resent sequela of sarcoidosis. Interlobular septal thickening is also seen with pulmonary edema. 4. Redemonstrated cardiomegaly Signer Name: Ta Mclean DO Signed: 08/30/2021 10:57 AM Workstation Name: [id number]
--- NOTE | 2021-08-30 12:22 | Emergency Department Report ---
ED Altered Mental Status HPI - General Chief Complaint: Chest Pain Stated Complaint: CP/BODY PAIN/COUGH PUI?: No Time Seen by Provider: 08/30/21 09:36 Source: patient, EMS Mode of arrival: Wheelchair Limitations: No Limitations - History of Present Illness Initial Comments: Chief complaint: Flank pain HPI: This is a 56-year-old male with history of end-stage renal disease on hemodialysis Saturday, hypertension, hyperlipidemia, COPD, renal mass who presents with left flank pain. Patient cannot recall his last hemodialysis session. He seems slightly altered. He has severe left flank pain since April. According to electronic record patient was diagnosed with renal mass on CT scan performed March 2021. Severe pain 10 out of 10. He arrived via EMS. Pain is worse with movement. Pain is sharp and severe. MD Complaint: altered mental status, confusion -: unknown Severity: moderate Consistency of Symptoms: waxing and waning Context: other (End-stage renal disease) Associated Symptoms: other (Left flank pain) - Related Data Home Medications Medication Instructions Recorded Confirmed Last Taken Lisinopril [Zestril] 40 mg PO DAILY 02/11/17 12/29/18 09/16/18 Pravastatin Sodium [Pravastatin] 40 mg PO DAILY 02/11/17 12/29/18 09/16/18 Previous Rx's Medication Instructions Recorded Last Taken Type oxyCODONE /ACETAMINOPHEN [Percocet 1 tab PO Q4HR PRN #30 tab 01/01/19 Unknown Rx 5/325 mg] Cinacalcet [Sensipar] 30 mg PO QAM #30 tablet 03/23/19 Unknown Rx Sevelamer Carbonate [Renvela] 800 mg PO QAC #30 tablet 03/23/19 Unknown Rx amLODIPine 10 mg PO DAILY #60 tablet 03/23/19 Unknown Rx carvediloL [Coreg] 25 mg PO BID #60 tablet 03/23/19 Unknown Rx hydrALAZINE [Apresoline TAB] 75 mg PO TID #180 tablet 03/23/19 Unknown Rx lisinopriL [Zestril TAB] 40 mg PO DAILY #30 tablet 03/23/19 Unknown Rx Prednisone [predniSONE 10 mg 10 mg PO .TAPER #1 tab.ds.pk 06/16/20 Unknown Rx (6-Day Pack, 21 Tabs)] Ciprofloxacin HCl 500 mg PO BID #20 tablet 03/16/21 Unknown Rx Ondansetron [Zofran Odt] 4 mg PO Q8HR #10 tab.rapdis 03/16/21 Unknown Rx metroNIDAZOLE [Flagyl] 500 mg PO Q12HR #20 tab 03/16/21 Unknown Rx traMADoL [Ultram] 50 mg PO Q6HR PRN #12 tablet 03/16/21 Unknown Rx Allergies Allergy/AdvReac Type Severity Reaction Status Date / Time No Known Allergies Allergy Verified 08/30/21 09:17 ED Review of Systems ROS: Stated complaint: CP/BODY PAIN/COUGH Other details as noted in HPI Comment: All other systems reviewed and negative Constitutional: denies: chills, fever, malaise Respiratory: denies: cough, shortness of breath Cardiovascular: denies: chest pain Gastrointestinal: denies: nausea, vomiting, diarrhea ED Past Medical Hx - Past Medical History Previous Medical History?: Yes Hx Hypertension: Yes Hx Congestive Heart Failure: Yes Hx Renal Disease: Yes Hx Kidney Stones: Yes Hx COPD: Yes (STATES HE BELIEVES HE IS) Hx HIV: No Additional medical history: dialysis pt,tues,thrima sat - Surgical History Past Surgical History?: Yes Additional Surgical History: fisutla CARLENE - Social History Smoking Status: Current Every Day Smoker Substance Use Type: Alcohol - Medications Home Medications: Home Medications Medication Instructions Recorded Confirmed Last Taken Type Lisinopril [Zestril] 40 mg PO DAILY 02/11/17 12/29/18 09/16/18 History Pravastatin Sodium [Pravastatin] 40 mg PO DAILY 02/11/17 12/29/18 09/16/18 History oxyCODONE /ACETAMINOPHEN [Percocet 1 tab PO Q4HR PRN #30 tab 01/01/19 Unknown Rx 5/325 mg] Cinacalcet [Sensipar] 30 mg PO QAM #30 tablet 03/23/19 Unknown Rx Sevelamer Carbonate [Renvela] 800 mg PO QAC #30 tablet 03/23/19 Unknown Rx amLODIPine 10 mg PO DAILY #60 tablet 03/23/19 Unknown Rx carvediloL [Coreg] 25 mg PO BID #60 tablet 03/23/19 Unknown Rx hydrALAZINE [Apresoline TAB] 75 mg PO TID #180 tablet 03/23/19 Unknown Rx lisinopriL [Zestril TAB] 40 mg PO DAILY #30 tablet 03/23/19 Unknown Rx Prednisone [predniSONE 10 mg 10 mg PO .TAPER #1 tab.ds.pk 06/16/20 Unknown Rx (6-Day Pack, 21 Tabs)] Ciprofloxacin HCl 500 mg PO BID #20 tablet 03/16/21 Unknown Rx Ondansetron [Zofran Odt] 4 mg PO Q8HR #10 tab.rapdis 03/16/21 Unknown Rx metroNIDAZOLE [Flagyl] 500 mg PO Q12HR #20 tab 03/16/21 Unknown Rx traMADoL [Ultram] 50 mg PO Q6HR PRN #12 tablet 03/16/21 Unknown Rx ED Physical Exam - General Limitations: No Limitations General appearance: alert, in no apparent distress, anxious, other (Restless anxious slightly agitated "don't leave me Doc") - Head Head exam: Present: atraumatic, normocephalic - Eye Eye exam: Present: normal appearance - ENT ENT exam: Present: mucous membranes moist - Neck Neck exam: Present: normal inspection, full ROM - Respiratory Respiratory exam: Present: normal lung sounds bilaterally. Absent: respiratory distress, wheezes, rales - Cardiovascular Cardiovascular Exam: Present: regular rate, normal rhythm, normal heart sounds. Absent: systolic murmur, diastolic murmur, rubs, gallop - GI/Abdominal GI/Abdominal exam: Present: soft, normal bowel sounds. Absent: distended, tenderness, guarding, rebound - Rectal Rectal exam: Present: deferred - Extremities Exam Extremities exam: Present: normal inspection - Neurological Exam Neurological exam: Present: alert, other (Oriented to name place, unable to recall answers to certain questions) - Psychiatric Psychiatric exam: Present: anxious, other (Odd affect) - Skin Skin exam: Present: warm, dry, intact, normal color. Absent: rash ED Course Vital Signs 08/30/21 08/30/21 09:15 09:38 Temperature 98.6 F Pulse Rate 75 69 Respiratory 18 16 Rate Blood Pressure 201/104 204/112 [Left] O2 Sat by Pulse 95 100 Oximetry - Lab Data Result diagrams: 08/30/21 09:58 08/30/21 09:58 Lab Results 08/30/21 08/30/21 Range/Units 09:58 09:58 WBC 5.3 (4.5-11.0) K/mm3 RBC 3.79 (3.65-5.03) M/mm3 Hgb 10.5 L (11.8-15.2) gm/dl Hct 33.2 L (35.5-45.6) % MCV 88 (84-94) fl MCH 28 (28-32) pg MCHC 32 (32-34) % RDW 17.5 H (13.2-15.2) % Plt Count 180 (140-440) K/mm3 Sodium 144 (137-145) mmol/L Potassium 5.6 H (3.6-5.0) mmol/L Chloride 98.5 (98-107) mmol/L Carbon Dioxide 17 L (22-30) mmol/L Anion Gap 34 mmol/L BUN 130 H (9-20) mg/dL Creatinine 17.3 H (0.8-1.3) mg/dL Estimated GFR 4 ml/min BUN/Creatinine Ratio 8 % Glucose 85 (75-100) mg/dL Calcium 10.2 (8.4-10.2) mg/dL - Radiology Data Radiology results: report reviewed Patient Name: ROSA LAY Gender: Male Date of : 1965 Referring Provider: JAY GRIDER Organization: [facility] Accession Number: [id number] Requested Date: August 30, 2021 09:48 Report Status: Final Requested Procedure: 1 Procedure Description: CT abdomen pelvis wo con Modality: CT Findings Reporting MD: Ta Mclean Dictation Time: August 30, 2021 09:57 Immigration Paralegal: Not available Professor Of Physics Date: CT CHEST, ABDOMEN, AND PELVIS WITHOUT CONTRAST INDICATION / CLINICAL INFORMATION: left flank pain severe left renal mass. TECHNIQUE: Axial CT images were obtained through the chest, abdomen, and pelvis without contrast. All CT scans at this location are performed using CT dose reduction for ALARA by means of automated exposure control. COMPARISON: 03/16/2021 FINDINGS: CHEST: HEART: Cardiomegaly. CORONARY ARTERY CALCIFICATION: Moderate. THORACIC AORTA: Mild atherosclerotic calcification without acute abnormality. MEDIASTINUM / TRUE: Numerous mediastinal and hilar as calcified nodes. There are prominent periesophageal lymph nodes with the largest measuring up to 2.0 cm in short axis (series 2 image 33) PLEURA: No pleural effusion. No pneumothorax. LUNGS: Mild prominence of the interlobular septa. Multiple scattered sub-6 mm subpleural nodules. ADDITIONAL CHEST FINDINGS: None. ABDOMEN/PELVIS: AORTA / ARTERIES: Moderate atherosclerotic calcification without acute abnormality. IVC / VEINS: No significant abnormality. LYMPH NODES: Redemonstrated and enlarged retroperitoneal lymph nodes. Redemonstrated retrocrural lymph node now measuring 2.3 cm, previously 1.9 cm. COLON: No significant abnormality. APPENDIX: Not visualized. STOMACH / SMALL BOWEL: No significant abnormality. PERITONEUM: No free fluid. No free air. No fluid collection. LIVER: No significant abnormality. GALLBLADDER: No significant abnormality. BILE DUCTS: No significant abnormality. PANCREAS: No significant abnormality. SPLEEN: No significant abnormality. [facility] [address] , [address] [place] [address] P [phone] F [phone] [facility] - Report exported on Aug 30, 2021 11:20:48 -0600 - Page 2 of 2 ADRENALS: No significant abnormality. RIGHT KIDNEY / URETER: No significant change in multicystic atrophic appearance. LEFT KIDNEY / URETER: No significant change in multicystic atrophic appearance with redemonstrated solid component in the lower polar region, unchanged. URINARY BLADDER: No significant abnormality. REPRODUCTIVE ORGANS: No significant abnormality. SKELETAL SYSTEM: No significant abnormality. ADDITIONAL FINDINGS: None. IMPRESSION: 1. No significant change in the appearance of the bilateral kidneys, specifically the previously seen solid left renal mass is unchanged compared to prior CT. 2. Interval enlargement of multiple retroperitoneal lymph nodes. There is interval enlargement of a retrocrural lymph node. Multiple prominent periesophageal lymph nodes. There is also multiple mediastinal hilar calcite lymph nodes. This lymphadenopathy is nonspecific but may represent sarcoidosis. 3. Interlobular septal thickening, as well as peripheral nodularity of the lungs. This too may resent sequela of sarcoidosis. Interlobular septal thickening is also seen with pulmonary edema. 4. Redemonstrated cardiomegaly Signer Name: Ta Mclean DO Signed: 08/30/2021 9:57 AM Workstation Name: [id number] - Medical Decision Making 1. Left flank pain for several months: Unclear if renal mass is the cause of pain. Patient has significant diffuse intra-abdominal retroperitoneal intrathoracic lymphadenopathy. Differential diagnosis includes sarcoidosis, lymphoma. Next 2. Acute uremic encephalopathy: I have evaluated this patient on previous occasion. He has delirium which I attribute to severe uremia. BUN 130. I spoke with patient's personal media center director school Dr. Zabala. Dr. Zabala has arranged emergent hemodialysis. Critical care attestation.: If time is entered above; I have spent that time in minutes in the direct care of this critically ill patient, excluding procedure time. ED Disposition Clinical Impression: Uremic encephalopathy, Left renal mass Disposition: ADMITTED INPATIENT Is pt being admited?: Yes Does the pt Need Aspirin: No Condition: Stable
--- NOTE | 2021-08-30 13:18 | Event Note ---
Date: 08/30/21 Patient presented with left flank pain and AMS. Last hemodialysis session on 08/24/21. Vitals, labs and imaging noted. Patient require hemodialysis now. HD orders placed. Spoke with dialysis nurse.
[2021-08-30] MEDS ORDERED: oxyCODONE /ACETAMINOPHEN 5-325MG TAB PO PRN (13:22)
[2021-08-30] MEDS ORDERED: HYDROmorphone 1 MG/1 ML INJ IV PRN (13:22)
[2021-08-30] MEDS ORDERED: ALBUTEROL 2.5 MG/3 ML NEBU IH PRN (13:22)
[2021-08-30] MEDS ORDERED: ONDANSETRON 4 MG/2 ML INJ IV PRN (13:22)
[2021-08-30] MEDS ORDERED: ACETAMINOPHEN 325 MG TAB PO PRN (13:22)
[2021-08-30] MEDS ORDERED: SODIUM CHLORIDE 0.9% 100 ML IV PRN (13:24)
--- NOTE | 2021-08-30 13:25 | History and Physical Report ---
History of Present Illness Chief complaint: I have not been going to dialysis like I should History of present illness: 56 YO Male with ESRD on HD (T,R,Sa), HTN, Nicotine Dependence, HLD, COPD presents to ED for evaluation. Patient reported "I have not been going to dialysis like she". Patient states that he cannot recall his last hemodialysis session. Patient reports generalized body aches over the past 1 week. EMS was notified and upon arrival the patient was found to be in distress and subsequently transported to [facility] for further care and evaluation of the aforementioned symptoms. The patient was seen and evaluated in the emergency department. All lab and imaging studies reviewed. Patient found to have end- stage renal disease in need of dialysis, fluid overload, metabolic acidosis, as well as metabolic encephalopathy. Patient placed in observation status and admitted to medical floor. Nephrology team consulted in ED for urgent dialysis. Pt denies fever, chills, CP, palpitations, NVD, Trauma, unilateral leg swelling, calf pain, hemoptysis, prolonged travel/immobility, Individual/Family history of DVT/PE/Blood Clotting Disorders. Nephrology consulted in ED. Prior admission on 07/05/2021 reviewed. All listed medication reconciled at time of admission. Advanced care planning conducted in ED. Patient has diminished cognition at time of my evaluation but has a positive gag reflex and able to protect his airway without difficulty. Past History Past Medical History: COPD, hypertension, hyperlipidemia Past Surgical History: Other (Dialysis access) Social history: single, smoking. denies: alcohol abuse, prescription drug abuse Family history: diabetes, hypertension Medications and Allergies Allergies Allergy/AdvReac Type Severity Reaction Status Date / Time No Known Allergies Allergy Verified 08/30/21 09:17 Home Medications Medication Instructions Recorded Confirmed Last Taken Type Lisinopril [Zestril] 40 mg PO DAILY 02/11/17 12/29/18 09/16/18 History Pravastatin Sodium [Pravastatin] 40 mg PO DAILY 02/11/17 12/29/18 09/16/18 History oxyCODONE /ACETAMINOPHEN [Percocet 1 tab PO Q4HR PRN #30 tab 01/01/19 Unknown Rx 5/325 mg] Cinacalcet [Sensipar] 30 mg PO QAM #30 tablet 03/23/19 Unknown Rx Sevelamer Carbonate [Renvela] 800 mg PO QAC #30 tablet 03/23/19 Unknown Rx amLODIPine 10 mg PO DAILY #60 tablet 03/23/19 Unknown Rx carvediloL [Coreg] 25 mg PO BID #60 tablet 03/23/19 Unknown Rx hydrALAZINE [Apresoline TAB] 75 mg PO TID #180 tablet 03/23/19 Unknown Rx lisinopriL [Zestril TAB] 40 mg PO DAILY #30 tablet 03/23/19 Unknown Rx Prednisone [predniSONE 10 mg 10 mg PO .TAPER #1 tab.ds.pk 06/16/20 Unknown Rx (6-Day Pack, 21 Tabs)] Ciprofloxacin HCl 500 mg PO BID #20 tablet 03/16/21 Unknown Rx Ondansetron [Zofran Odt] 4 mg PO Q8HR #10 tab.rapdis 03/16/21 Unknown Rx metroNIDAZOLE [Flagyl] 500 mg PO Q12HR #20 tab 03/16/21 Unknown Rx traMADoL [Ultram] 50 mg PO Q6HR PRN #12 tablet 03/16/21 Unknown Rx Active Meds: Active Medications Acetaminophen (Acetaminophen 325 Mg Tab) 650 mg PO Q4H PRN PRN Reason: Pain MILD(1-3)/Fever >100.5/OLIVAS Albuterol (Albuterol 2.5 Mg/3 Ml Nebu) 2.5 mg IH Q4HRT PRN PRN Reason: Shortness Of Breath Hydromorphone HCl (Hydromorphone 1 Mg/1 Ml Inj) 0.5 mg IV Q23H PRN PRN Reason: Pain , Severe (7-10) Ondansetron HCl (Ondansetron 4 Mg/2 Ml Inj) 4 mg IV Q8H PRN PRN Reason: Nausea And Vomiting Oxycodone/Acetaminophen (Oxycodone /Acetaminophen 5-325mg Tab) 1 tab PO Q16H PRN PRN Reason: Pain, Moderate (4-6) Sodium Chloride (Sodium Chloride 0.9% 10 Ml Flush Syringe) 10 ml IV BID DANITA Sodium Chloride (Sodium Chloride 0.9% 10 Ml Flush Syringe) 10 ml IV PRN PRN PRN Reason: LINE FLUSH Review of Systems Constitutional: no weight loss, no weight gain, no fever, no chills Ears, nose, mouth and throat: no ear pain, no ear discharge, no decreased hearing, no nose pain, no nasal congestion Cardiovascular: no chest pain, no orthopnea, no palpitations, no rapid/irregular heart beat, no edema Respiratory: no cough, no cough with sputum, no shortness of breath Gastrointestinal: no abdominal pain, no nausea, no vomiting, no diarrhea Genitourinary Male: no hematuria, no flank pain, no discharge, no urinary frequency, no urinary hesitancy, no nocturia Rectal: no pain, no incontinence, no bleeding Musculoskeletal: no neck stiffness, no neck pain, no shooting arm pain, no arm numbness/tingling, no leg numbness/tingling, no redness of joints Integumentary: no rash, no redness, no sores, no wounds, no jaundice Neurological: no transient paralysis, no weakness, no parathesias, no numbness, no seizures Psychiatric: no anxiety, no change in sleep habits, no sleep disturbances, no hypersomnia, no change in libido Endocrine: no cold intolerance, no heat intolerance, no excessive thirst, no polyuria, no nocturia, no flushing Hematologic/Lymphatic: no easy bruising, no easy bleeding, no lymphadenopathy Allergic/Immunologic: no urticaria, no allergic rhinitis, no persistent infections, no anaphylaxis Exam - Constitutional Vitals: Temp Pulse Resp BP Pulse Ox 98.6 F 69 16 204/112 100 08/30/21 09:15 08/30/21 09:38 08/30/21 09:38 08/30/21 09:38 08/30/21 09:38 General appearance: Present: mild distress - EENT Eyes: Present: PERRL ENT: hearing intact, clear oral mucosa - Neck Neck: Present: supple, normal ROM - Respiratory Respiratory effort: normal Respiratory: bilateral: CTA - Cardiovascular Heart Sounds: Present: S1 & S2. Absent: rub, click - Extremities Extremities: pulses symmetrical, No edema Peripheral Pulses: within normal limits - Abdominal General gastrointestinal: Present: soft, non-tender, non-distended, normal bowel sounds Male genitourinary: Present: normal - Integumentary Integumentary: Present: clear, warm, dry - Musculoskeletal Musculoskeletal: gait normal, strength equal bilaterally - Psychiatric Psychiatric: appropriate mood/affect, intact judgment & insight - Neurologic Neurologic: CNII-XII intact, moves all extremities Results - Labs CBC & Chem 7: 08/30/21 09:58 08/30/21 09:58 Labs: Abnormal lab results 08/30/21 08/30/21 Range/Units 09:58 09:58 Hgb 10.5 L (11.8-15.2) gm/dl Hct 33.2 L (35.5-45.6) % RDW 17.5 H (13.2-15.2) % Potassium 5.6 H (3.6-5.0) mmol/L Carbon Dioxide 17 L (22-30) mmol/L BUN 130 H (9-20) mg/dL Creatinine 17.3 H (0.8-1.3) mg/dL Assessment and Plan - Patient Problems (1) ESRD needing dialysis Current Visit: No Status: Chronic Plan to address problem: Nephrology team consulted in ED, dialysis as per renal team, strict I's/O, monitor fluid balance, avoid nephrotoxic agents. (2) Metabolic encephalopathy Current Visit: Yes Status: Acute Plan to address problem: Neuro check, supportive care, BMP, urgent dialysis as per renal team. (3) Lymphadenopathy Current Visit: Yes Status: Acute Plan to address problem: Unknown etiology. Outpatient rheumatology F/U to evaluated for sarcoidosis. (4) Left renal mass Current Visit: Yes Status: Acute Plan to address problem: Continue medical management, no changes. (5) Metabolic acidosis Current Visit: Yes Status: Acute (6) Hyperkalemia Current Visit: No Status: Acute Plan to address problem: No EKG changes, urgent dialysis, supportive care. (7) DVT prophylaxis Current Visit: No Status: Acute Plan to address problem: SCD to bilateral lower extremities while in bed, patient is ambulatory (8) Advance care planning Current Visit: Yes Status: Acute Plan to address problem: Disease education conducted, care plan discussed, diagnoses discussed, prognosis discussed, patient is full code. Patient counseled regarding noncompliance with outpatient dialysis. , +30 minutes. Patient acknowledges understanding and agreement with care plan,
[2021-08-30 14:21] LABS: Hepatitis C Virus Antibody Non-Reactive (NonReactive)
[2021-08-30 14:22] LABS: Hepatitis B Surface Antigen Nonreactive (Negative)
--- NOTE | 2021-08-30 16:24 | Consultation ---
History of Present Illness - Reason for Consult Consult date: 08/30/21 end stage renal disease, hyperkalemia - History of Present Illness The patient is a 56 YO male who is known to our service with history significant for ESRD on HD (TTS), HTN, HLD, COPD and Kidney mass who presented to [facility] ED 08/30/2021 with AMS. Patient was not able to provide any history due to AMS. He missed the past 2 hemodialysis sessions. Pt denies any complaints. Intial BP was 206/115. Labs significant for K 5.6, BUN 130, Creatinine of 17.3 and bicarb 17. Nephrology was consulted for ESRD management. Past History Past Medical History: other (See HPI.) Medications and Allergies Allergies Allergy/AdvReac Type Severity Reaction Status Date / Time No Known Allergies Allergy Verified 08/30/21 09:17 Home Medications Medication Instructions Recorded Confirmed Last Taken Type Lisinopril [Zestril] 40 mg PO DAILY 02/11/17 08/31/21 09/16/18 History oxyCODONE /ACETAMINOPHEN [Percocet 1 tab PO Q4HR PRN #30 tab 01/01/19 08/31/21 Unknown Rx 5/325 mg] Ondansetron [Zofran Odt] 4 mg PO Q8HR #10 tab.rapdis 03/16/21 08/31/21 Unknown Rx Cinacalcet [Sensipar] 30 mg PO QAM #30 tablet 08/31/21 Unknown Rx Pravastatin [Pravachol] 40 mg PO QHS #30 tablet 08/31/21 Unknown Rx Sevelamer Carbonate [Renvela] 800 mg PO QAC #90 tablet 08/31/21 Unknown Rx amLODIPine 10 mg PO DAILY #30 tablet 08/31/21 Unknown Rx carvediloL [Coreg] 25 mg PO BID #60 tablet 08/31/21 Unknown Rx hydrALAZINE [Apresoline TAB] 75 mg PO TID #90 tablet 08/31/21 Unknown Rx traMADoL [Ultram 50 MG tab] 50 mg PO Q6H PRN #24 tablet 08/31/21 Unknown Rx Active Meds: Active Medications Acetaminophen (Acetaminophen 325 Mg Tab) 650 mg PO Q4H PRN PRN Reason: Pain MILD(1-3)/Fever >100.5/OLIVAS Albuterol (Albuterol 2.5 Mg/3 Ml Nebu) 2.5 mg IH Q4HRT PRN PRN Reason: Shortness Of Breath Hydromorphone HCl (Hydromorphone 1 Mg/1 Ml Inj) 0.5 mg IV Q23H PRN PRN Reason: Pain , Severe (7-10) Sodium Chloride (Nacl 0.9%) 100 mls @ 999 mls/hr IV ALISSA PRN PRN Reason: Hypotension Ondansetron HCl (Ondansetron 4 Mg/2 Ml Inj) 4 mg IV Q8H PRN PRN Reason: Nausea And Vomiting Oxycodone/Acetaminophen (Oxycodone /Acetaminophen 5-325mg Tab) 1 tab PO Q16H PRN PRN Reason: Pain, Moderate (4-6) Sodium Chloride (Sodium Chloride 0.9% 10 Ml Flush Syringe) 10 ml IV BID DANITA Sodium Chloride (Sodium Chloride 0.9% 10 Ml Flush Syringe) 10 ml IV PRN PRN PRN Reason: LINE FLUSH Review of Systems ROS unobtainable: due to mental status Exam - Vital Signs Vital signs: Vital Signs Temp Pulse Resp BP Pulse Ox 98.6 F 75 18 201/104 95 08/30/21 09:15 08/30/21 09:15 08/30/21 09:15 08/30/21 09:15 08/30/21 09:15 Results - Lab Results 08/30/21 09:58 09/01/21 05:12 Most recent lab results Calcium 10.2 mg/dL (8.4-10.2) 08/30/21 09:58 Assessment and Plan 1. ESRD: Patient is on maintenance hemodialysis, TTS schedule. He missed the last 2 sessions of hemodialysis. Hemodialysis: today. 2. FEN: Hyperkalemia, hemodialysis today. Metabolic acidosis, HD today. Monitor lytes and volume status. 3. Uncontrolled HTN: Volume control thru HD. Resume home meds. Monitor BP after HD. Advised to limit fluid intake. 4. L kidney mass: Patient followed by Urologist. Pt didn't do the imaging ordered. Patient to follow with Urology. Informed patient multiple times and also spoke with his brother over the phone. 5. Anemia, POA: 2/2 ESRD. Epogen with HD. Subjective: Patient was seen and examined at the bedside. General Appearance: General appearance: well-developed, thin built, appears stated age, no distress EENT: ATNC, GAYLE, hearing intact, vision intact Neck: neck supple, trachea midline Respiratory: ctab Heart: regular, S1S2, no murmur Abdomen: distended, NT, BS heard Integumentary: no rash, warm and dry Neurologic: no focal deficit, no asterixis, confused Ext: trace LE edema noted Hemodialysis access: R arm AVF
[2021-08-30] MEDS ORDERED: traMADol 50 MG TAB PO PRN ×2 (16:55→17:11)
[2021-08-30] MEDS ORDERED: hydrALAZINE 20 MG/1 ML INJ IV PRN (17:00)
--- NOTE | 2021-08-30 17:59 | Electrocardiograph Report ---
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
[2021-08-30] MEDS: amLODIPine 10 MG TAB PO SCH (18:16)
[2021-08-30] MEDS: hydrALAZINE 25 MG TAB PO SCH (22:08)
[2021-08-30] MEDS: PRAVASTATIN 40 MG TAB PO SCH (22:08)
[2021-08-30] MEDS: ONDANSETRON 4 MG ODT TAB PO SCH (22:08)
[2021-08-30] MEDS: carvediloL 25 MG TAB PO SCH (22:08)
[2021-08-31] MEDS: ONDANSETRON 4 MG ODT TAB PO SCH ×3 (05:39→21:04)
[2021-08-31] MEDS: SEVELAMER CARBONATE 800 MG TAB PO SCH ×3 (07:30→16:30)
[2021-08-31] MEDS: hydrALAZINE 25 MG TAB PO SCH ×3 (08:00→21:03)
[2021-08-31 08:37] LABS: Calcium 9.6 mg/dL (8.4-10.2)
--- NOTE | 2021-08-31 09:26 | Progress Note ---
Assessment and Plan 1. ESRD: Patient is on maintenance hemodialysis, TTS schedule. He missed the last 2 sessions of outpatient hemodialysis. Hemodialysis: 08/30. 2. FEN: Hyperkalemia, improved with hemodialysis. Metabolic acidosis, s/p HD. Monitor lytes and volume status. 3. Uncontrolled HTN: Volume control thru HD. Continue home meds. BP is improving. 4. L kidney mass: Patient followed by Urologist. Patient to follow with Urology. Informed patient multiple times and also spoke with his brother over the phone. 5. Anemia, POA: 2/2 ESRD. Epogen with HD. Subjective: Patient was seen and examined at the bedside. General Appearance: General appearance: well-developed, thin built, appears stated age, no distress EENT: ATNC, GAYLE, hearing intact, vision intact Neck: neck supple, trachea midline Respiratory: ctab Heart: regular, S1S2, no murmur Abdomen: distended, NT, BS heard Integumentary: no rash, warm and dry Neurologic: no focal deficit, no asterixis, confused Ext: no edema noted Hemodialysis access: R arm AVF Subjective Date of service: 08/31/21 Objective - Vital Signs Vital signs: Vital Signs - 12hr 08/30/21 08/30/21 08/31/21 22:00 23:58 00:23 Temperature 97.9 F 98.7 F Pulse Rate 74 73 Respiratory 20 18 Rate Respiratory 18 Rate [Medial Chest] Blood Pressure 139/82 Blood Pressure 157/91 [Left] O2 Sat by Pulse 98 94 Oximetry 08/31/21 08/31/21 02:28 05:58 Temperature 98.6 F Pulse Rate 71 Respiratory 18 18 Rate Respiratory Rate [Medial Chest] Blood Pressure 154/91 Blood Pressure [Left] O2 Sat by Pulse 99 84 Oximetry - Lab 08/30/21 09:58 09/01/21 05:12 Most recent lab results Calcium 9.6 mg/dL (8.4-10.2) 08/31/21 07:35 Medications & Allergies - Medications Allergies/Adverse Reactions: Allergies No Known Allergies Allergy (Verified 08/30/21 09:17) Home Medications: Home Medications Medication Instructions Recorded Confirmed Last Taken Type Lisinopril [Zestril] 40 mg PO DAILY 02/11/17 08/31/21 09/16/18 History oxyCODONE /ACETAMINOPHEN [Percocet 1 tab PO Q4HR PRN #30 tab 01/01/19 08/31/21 U nknown Rx 5/325 mg] Ondansetron [Zofran Odt] 4 mg PO Q8HR #10 tab.rapdis 03/16/21 08/31/21 Unknown Rx Cinacalcet [Sensipar] 30 mg PO QAM #30 tablet 08/31/21 Unknown Rx Pravastatin [Pravachol] 40 mg PO QHS #30 tablet 08/31/21 Unknown Rx Sevelamer Carbonate [Renvela] 800 mg PO QAC #90 tablet 08/31/21 Unknown Rx amLODIPine 10 mg PO DAILY #30 tablet 08/31/21 Unknown Rx carvediloL [Coreg] 25 mg PO BID #60 tablet 08/31/21 Unknown Rx hydrALAZINE [Apresoline TAB] 75 mg PO TID #90 tablet 08/31/21 Unknown Rx traMADoL [Ultram 50 MG tab] 50 mg PO Q6H PRN #24 tablet 08/31/21 Unknown Rx Active Medications: Generic Name Dose Route Start Last Admin Trade Name Freq PRN Reason Stop Dose Admin Acetaminophen 650 mg 08/30/21 13:22 Acetaminophen 325 Mg Tab PO Q4H PRN Pain MILD(1-3)/Fever >100.5/OLIVAS Albuterol 2.5 mg 08/30/21 13:22 Albuterol 2.5 Mg/3 Ml Nebu IH Q4HRT PRN Shortness Of Breath Amlodipine Besylate 10 mg 08/30/21 18:00 08/30/21 18:16 Amlodipine 10 Mg Tab PO 10 mg DAILY DANITA Administration Carvedilol 25 mg 08/30/21 22:00 08/30/21 22:08 Carvedilol 25 Mg Tab PO 25 mg BID DANITA Administration Cinacalcet 30 mg 08/31/21 10:00 Cinacalcet 30 Mg Tab PO QAM DANITA Hydralazine HCl 75 mg 08/30/21 20:00 08/30/21 22:08 Hydralazine 25 Mg Tab PO 75 mg TID DANITA Administration Hydralazine HCl 10 mg 08/30/21 17:00 Hydralazine 20 Mg/1 Ml Inj IV Q8HR PRN Hypertension Hydromorphone HCl 0.5 mg 08/30/21 13:22 Hydromorphone 1 Mg/1 Ml Inj IV Q23H PRN Pain , Severe (7-10) Sodium Chloride 100 mls @ 999 mls/hr 08/30/21 13:24 Nacl 0.9% IV ALISSA PRN Hypotension Lisinopril 40 mg 08/31/21 10:00 Lisinopril 40 Mg Tab PO DAILY DANITA Ondansetron HCl 4 mg 08/30/21 13:22 Ondansetron 4 Mg/2 Ml Inj IV Q8H PRN Nausea And Vomiting Ondansetron HCl 4 mg 08/30/21 22:00 08/31/21 05:39 Ondansetron 4 Mg Odt Tab PO 4 mg Q8HR DANITA Administration Oxycodone/Acetaminophen 1 tab 08/30/21 13:22 Oxycodone /Acetaminophen 5-325mg Tab PO Q16H PRN Pain, Moderate (4-6) Pravastatin Sodium 40 mg 08/30/21 22:00 08/30/21 22:08 Pravastatin 40 Mg Tab PO Not Given QHS DANITA Sevelamer Carbonate 800 mg 08/31/21 07:30 Sevelamer Carbonate 800 Mg Tab PO QAC DANITA Sodium Chloride 10 ml 08/30/21 22:00 08/30/21 22:09 Sodium Chloride 0.9% 10 Ml Flush Syringe IV Not Given BID DANITA Sodium Chloride 10 ml 08/30/21 13:22 Sodium Chloride 0.9% 10 Ml Flush Syringe IV PRN PRN LINE FLUSH Tramadol HCl 50 mg 08/30/21 17:11 Tramadol 50 Mg Tab PO Q6H PRN Pain, Moderate (4-6)
[2021-08-31] MEDS ORDERED: NON-FORMULARY EACH (Pravastatin Sodium [Pravastatin] 10 MG Tablet) PO SCH (10:00)
[2021-08-31] MEDS: CINACALCET 30 MG TAB PO SCH (10:11)
[2021-08-31] MEDS: LISINOPRIL 40 MG TAB PO SCH (10:11)
[2021-08-31] MEDS: carvediloL 25 MG TAB PO SCH ×2 (10:12→21:04)
[2021-08-31] MEDS: amLODIPine 10 MG TAB PO SCH (10:12)
--- NOTE | 2021-08-31 14:51 | Discharge Summary ---
Providers - Providers Date of Admission: 08/30/21 13:45 Date of discharge: 09/01/21 Attending physician: FLORECITA TALAMANTES 08/30/21 12:56 Consult to Physician [CONS] Stat Comment: Dr. Estes spoke with Dr. Quiroz @ [id number] Consulting Provider: JOSEPH QUIROZ Physician Instructions: Reason For Exam: ESRD, uremia Primary care physician: [employer] Hospitalization Condition: Stable Disposition: 01 HOME / SELF CARE / HOMELESS Exam - Constitutional Vitals: Temp Pulse Resp BP Pulse Ox 98.6 F 71 18 154/91 84 08/31/21 05:58 08/31/21 05:58 08/31/21 05:58 08/31/21 05:58 08/31/21 05:58 Plan Follow up with: PRIMARY CARE, [Primary Care Provider] - 7 Days Prescriptions: amLODIPine 10 mg PO DAILY #30 tablet hydrALAZINE [Apresoline TAB] 75 mg PO TID #90 tablet carvediloL [Coreg] 25 mg PO BID #60 tablet Pravastatin [Pravachol] 40 mg PO QHS #30 tablet Sevelamer Carbonate [Renvela] 800 mg PO QAC #90 tablet Cinacalcet [Sensipar] 30 mg PO QAM #30 tablet traMADoL [Ultram 50 MG tab] 50 mg PO Q6H PRN #24 tablet PRN Reason: Pain, Moderate (4-6)
[2021-08-31] MEDS: PRAVASTATIN 40 MG TAB PO SCH (21:04)
[2021-09-01 05:47] LABS: Calcium 9.4 mg/dL (8.4-10.2)
[2021-09-01] MEDS: ONDANSETRON 4 MG ODT TAB PO SCH ×2 (06:27→14:00)
[2021-09-01] MEDS: SEVELAMER CARBONATE 800 MG TAB PO SCH ×3 (07:30→18:38)
--- NOTE | 2021-09-01 07:54 | Progress Note ---
Subjective Date of service: 08/31/21 Objective - Constitutional Vitals: Vital Signs - 12hr 08/31/21 08/31/21 08/31/21 21:02 21:03 21:04 Temperature Pulse Rate 62 62 62 Respiratory Rate Respiratory Rate [Medial Chest] Blood Pressure 136/82 136/82 136/82 O2 Sat by Pulse 91 Oximetry 08/31/21 08/31/21 09/01/21 22:00 22:33 04:41 Temperature 97.8 F 98.4 F Pulse Rate 67 61 Respiratory 17 19 20 Rate Respiratory 17 Rate [Medial Chest] Blood Pressure 151/81 141/80 O2 Sat by Pulse 95 94 93 Oximetry General appearance: Present: no acute distress, well-nourished - EENT Eyes: PERRL, EOM intact ENT: hearing intact, clear oral mucosa Ears: bilateral: normal - Neck Neck: supple, normal ROM - Respiratory Respiratory effort: normal Respiratory: bilateral: CTA - Breasts Breasts: normal - Cardiovascular Rhythm: regular Heart Sounds: Present: S1 & S2. Absent: gallop, rub Extremities: pulses intact, No edema, normal color, Full ROM - Gastrointestinal General gastrointestinal: Present: soft, non-tender, non-distended, normal bowel sounds - Genitourinary Male genitourinary: normal - Integumentary Integumentary: clear, warm, dry - Musculoskeletal Musculoskeletal: 1, strength equal bilaterally - Neurologic Neurologic: moves all extremities - Psychiatric Psychiatric: memory intact, appropriate mood/affect, intact judgment & insight - Labs CBC & Chem 7: 08/30/21 09:58 09/01/21 05:12 Labs: Abnormal lab results 08/31/21 09/01/21 Range/Units 07:35 05:12 Potassium 5.4 H (3.6-5.0) mmol/L Chloride 96.3 L (98-107) mmol/L BUN 68 H 77 H (9-20) mg/dL Creatinine 11.4 H 14.6 H (0.8-1.3) mg/dL
[2021-09-01] MEDS: hydrALAZINE 25 MG TAB PO SCH ×2 (08:00→14:00)
--- NOTE | 2021-09-01 08:37 | Progress Note ---
Assessment and Plan 1. ESRD: Patient is on maintenance hemodialysis, TTS schedule. He missed the last 2 sessions of hemodialysis. Hemodialysis: 08/30. HD today. 2. FEN: Hyperkalemia, hemodialysis today. Metabolic acidosis, HD today. Monitor lytes and volume status. 3. Acute Metabolic encephalopathy, POA: Improving. 4. Uncontrolled HTN: Volume control thru HD. BP is better. Monitor BP. 5. L kidney mass: Patient followed by Urologist. Patient to follow with Urology. Informed patient multiple times and also spoke with his brother over the phone. 6. Anemia, POA: 2/2 ESRD. Epogen with HD as needed. Subjective: Patient was seen and examined at the bedside. General Appearance: General appearance: well-developed, thin built, appears stated age, no distress EENT: ATNC, GAYLE, hearing intact, vision intact Neck: neck supple, trachea midline Respiratory: ctab Heart: regular, S1S2, no murmur Abdomen: distended, NT, BS heard Integumentary: no rash, warm and dry Neurologic: no focal deficit, no asterixis, some confusion noted Ext: no edema noted Hemodialysis access: R arm AVF Subjective Date of service: 09/01/21 Objective - Vital Signs Vital signs: Vital Signs - 12hr 08/31/21 08/31/21 08/31/21 21:02 21:03 21:04 Temperature Pulse Rate 62 62 62 Respiratory Rate Respiratory Rate [Medial Chest] Blood Pressure 136/82 136/82 136/82 O2 Sat by Pulse 91 Oximetry 08/31/21 08/31/21 09/01/21 22:00 22:33 04:41 Temperature 97.8 F 98.4 F Pulse Rate 67 61 Respiratory 17 19 20 Rate Respiratory 17 Rate [Medial Chest] Blood Pressure 151/81 141/80 O2 Sat by Pulse 95 94 93 Oximetry - Lab 08/30/21 09:58 09/01/21 05:12 Most recent lab results Calcium 9.4 mg/dL (8.4-10.2) 09/01/21 05:12 Medications & Allergies - Medications Allergies/Adverse Reactions: Allergies No Known Allergies Allergy (Verified 08/30/21 09:17) Home Medications: Home Medications Medication Instructions Recorded Confirmed Last Taken Type Lisinopril [Zestril] 40 mg PO DAILY 02/11/17 08/31/21 09/16/18 History oxyCODONE /ACETAMINOPHEN [Percocet 1 tab PO Q4HR PRN #30 tab 01/01/19 08/31/21 Unknown Rx 5/325 mg] Ondansetron [Zofran Odt] 4 mg PO Q8HR #10 tab.rapdis 03/16/21 08/31/21 Unknown Rx Cinacalcet [Sensipar] 30 mg PO QAM #30 tablet 08/31/21 Unknown Rx Pravastatin [Pravachol] 40 mg PO QHS #30 tablet 08/31/21 Unknown Rx Sevelamer Carbonate [Renvela] 800 mg PO QAC #90 tablet 08/31/21 Unknown Rx amLODIPine 10 mg PO DAILY #30 tablet 08/31/21 Unknown Rx carvediloL [Coreg] 25 mg PO BID #60 tablet 08/31/21 Unknown Rx hydrALAZINE [Apresoline TAB] 75 mg PO TID #90 tablet 08/31/21 Unknown Rx traMADoL [Ultram 50 MG tab] 50 mg PO Q6H PRN #24 tablet 08/31/21 Unknown Rx Active Medications: Generic Name Dose Route Start Last Admin Trade Name Freq PRN Reason Stop Dose Admin Acetaminophen 650 mg 08/30/21 13:22 Acetaminophen 325 Mg Tab PO Q4H PRN Pain MILD(1-3)/Fever >100.5/OLIVAS Albuterol 2.5 mg 08/30/21 13:22 Albuterol 2.5 Mg/3 Ml Nebu IH Q4HRT PRN Shortness Of Breath Amlodipine Besylate 10 mg 08/30/21 18:00 08/31/21 10:12 Amlodipine 10 Mg Tab PO 10 mg DAILY DANITA Administration Carvedilol 25 mg 08/30/21 22:00 08/31/21 21:04 Carvedilol 25 Mg Tab PO 25 mg BID DANITA Administration Cinacalcet 30 mg 08/31/21 10:00 08/31/21 10:11 Cinacalcet 30 Mg Tab PO 30 mg QAM DANITA Administration Hydralazine HCl 75 mg 08/30/21 20:00 08/31/21 21:03 Hydralazine 25 Mg Tab PO 75 mg TID DANITA Administration Hydralazine HCl 10 mg 08/30/21 17:00 Hydralazine 20 Mg/1 Ml Inj IV Q8HR PRN Hypertension Hydromorphone HCl 0.5 mg 08/30/21 13:22 Hydromorphone 1 Mg/1 Ml Inj IV Q23H PRN Pain , Severe (7-10) Sodium Chloride 100 mls @ 999 mls/hr 08/30/21 13:24 Nacl 0.9% IV ALISSA PRN Hypotension Lisinopril 40 mg 08/31/21 10:00 08/31/21 10:11 Lisinopril 40 Mg Tab PO 40 mg DAILY DANITA Administration Ondansetron HCl 4 mg 08/30/21 13:22 Ondansetron 4 Mg/2 Ml Inj IV Q8H PRN Nausea And Vomiting Ondansetron HCl 4 mg 08/30/21 22:00 09/01/21 06:27 Ondansetron 4 Mg Odt Tab PO 4 mg Q8HR DANITA Administration Oxycodone/Acetaminophen 1 tab 08/30/21 13:22 Oxycodone /Acetaminophen 5-325mg Tab PO Q16H PRN Pain, Moderate (4-6) Pravastatin Sodium 40 mg 08/30/21 22:00 08/31/21 21:04 Pravastatin 40 Mg Tab PO 40 mg QHS DANITA Administration Sevelamer Carbonate 800 mg 08/31/21 07:30 08/31/21 16:30 Sevelamer Carbonate 800 Mg Tab PO 800 mg QAC DANITA Administration Sodium Chloride 10 ml 08/30/21 22:00 08/31/21 21:04 Sodium Chloride 0.9% 10 Ml Flush Syringe IV 10 ml BID DANITA Administration Sodium Chloride 10 ml 08/30/21 13:22 Sodium Chloride 0.9% 10 Ml Flush Syringe IV PRN PRN LINE FLUSH Tramadol HCl 50 mg 08/30/21 17:11 Tramadol 50 Mg Tab PO Q6H PRN Pain, Moderate (4-6)
[2021-09-01] MEDS: CINACALCET 30 MG TAB PO SCH (09:39)
[2021-09-01 14:43] VITALS: BP 160/86
[2021-09-01] MEDS: LISINOPRIL 40 MG TAB PO SCH (18:33)
[2021-09-01] MEDS: amLODIPine 10 MG TAB PO SCH (18:33)
[2021-09-01] MEDS: carvediloL 25 MG TAB PO SCH (18:36)
--- NOTE | 2021-09-01 18:36 | Progress Note ---
Hospitalist Physical - Constitutional Vitals: Temp Pulse Resp BP Pulse Ox 98.0 F 63 18 160/86 98 09/01/21 14:40 09/01/21 14:40 09/01/21 14:40 09/01/21 14:40 09/01/21 14:40 General appearance: Present: no acute distress, well-nourished Results - Labs CBC & Chem 7: 08/30/21 09:58 09/01/21 05:12 Labs: Laboratory Last Values WBC 5.3 K/mm3 (4.5-11.0) 08/30/21 09:58 RBC 3.79 M/mm3 (3.65-5.03) 08/30/21 09:58 Hgb 10.5 gm/dl (11.8-15.2) L 08/30/21 09:58 Hct 33.2 % (35.5-45.6) L 08/30/21 09:58 MCV 88 fl (84-94) 08/30/21 09:58 MCH 28 pg (28-32) 08/30/21 09:58 MCHC 32 % (32-34) 08/30/21 09:58 RDW 17.5 % (13.2-15.2) H 08/30/21 09:58 Plt Count 180 K/mm3 (140-440) 08/30/21 09:58 Sodium 143 mmol/L (137-145) 09/01/21 05:12 Potassium 5.4 mmol/L (3.6-5.0) H 09/01/21 05:12 Chloride 96.3 mmol/L (98-107) L 09/01/21 05:12 Carbon Dioxide 25 mmol/L (22-30) 09/01/21 05:12 Anion Gap 27 mmol/L 09/01/21 05:12 BUN 77 mg/dL (9-20) H 09/01/21 05:12 Creatinine 14.6 mg/dL (0.8-1.3) H 09/01/21 05:12 Estimated GFR 4 ml/min 09/01/21 05:12 BUN/Creatinine Ratio 5 % 09/01/21 05:12 Glucose 78 mg/dL (75-100) 09/01/21 05:12 Calcium 9.4 mg/dL (8.4-10.2) 09/01/21 05:12 Hepatitis A IgM Ab Non-reactive (NonReactive) 08/30/21 13:35 Hep Bs Antigen Nonreactive (Negative) 08/30/21 13:35 Hep B Core IgM Ab Non-reactive (NonReactive) 08/30/21 13:35 Hepatitis C Antibody Non-reactive (NonReactive) 08/30/21 13:35 López/IV: Voiding Method Urinal Active Medications - Current Medications Current Medications: Generic Name Dose Route Start Last Admin Trade Name Freq PRN Reason Stop Dose Admin Acetaminophen 650 mg 08/30/21 13:22 Acetaminophen 325 Mg Tab PO Q4H PRN Pain MILD(1-3)/Fever >100.5/OLIVAS Albuterol 2.5 mg 08/30/21 13:22 Albuterol 2.5 Mg/3 Ml Nebu IH Q4HRT PRN Shortness Of Breath Amlodipine Besylate 10 mg 08/30/21 18:00 08/31/21 10:12 Amlodipine 10 Mg Tab PO 10 mg DAILY DANITA Administration Carvedilol 25 mg 08/30/21 22:00 08/31/21 21:04 Carvedilol 25 Mg Tab PO 25 mg BID DANITA Administration Cinacalcet 30 mg 08/31/21 10:00 09/01/21 09:39 Cinacalcet 30 Mg Tab PO 30 mg QAM DANITA Administration Hydralazine HCl 75 mg 08/30/21 20:00 08/31/21 21:03 Hydralazine 25 Mg Tab PO 75 mg TID DANITA Administration Hydralazine HCl 10 mg 08/30/21 17:00 Hydralazine 20 Mg/1 Ml Inj IV Q8HR PRN Hypertension Hydromorphone HCl 0.5 mg 08/30/21 13:22 Hydromorphone 1 Mg/1 Ml Inj IV Q23H PRN Pain , Severe (7-10) Sodium Chloride 100 mls @ 999 mls/hr 08/30/21 13:24 Nacl 0.9% IV ALISSA PRN Hypotension Lisinopril 40 mg 08/31/21 10:00 08/31/21 10:11 Lisinopril 40 Mg Tab PO 40 mg DAILY DANITA Administration Ondansetron HCl 4 mg 08/30/21 13:22 Ondansetron 4 Mg/2 Ml Inj IV Q8H PRN Nausea And Vomiting Ondansetron HCl 4 mg 08/30/21 22:00 09/01/21 06:27 Ondansetron 4 Mg Odt Tab PO 4 mg Q8HR DANITA Administration Oxycodone/Acetaminophen 1 tab 08/30/21 13:22 Oxycodone /Acetaminophen 5-325mg Tab PO Q16H PRN Pain, Moderate (4-6) Pravastatin Sodium 40 mg 08/30/21 22:00 08/31/21 21:04 Pravastatin 40 Mg Tab PO 40 mg QHS DANITA Administration Sevelamer Carbonate 800 mg 08/31/21 07:30 09/01/21 07:30 Sevelamer Carbonate 800 Mg Tab PO 800 mg QAC DANITA Administration Sodium Chloride 10 ml 08/30/21 22:00 09/01/21 09:39 Sodium Chloride 0.9% 10 Ml Flush Syringe IV 10 ml BID DANITA Administration Sodium Chloride 10 ml 08/30/21 13:22 Sodium Chloride 0.9% 10 Ml Flush Syringe IV PRN PRN LINE FLUSH Tramadol HCl 50 mg 08/30/21 17:11 Tramadol 50 Mg Tab PO Q6H PRN Pain, Moderate (4-6)
== END 2021-09-01 19:23 | disposition home or self-care (01) ==
LOC: ED 09:13 → 3A 13:45
PROVIDERS: ADMIT Internal Medicine; ATTEND Internal Medicine
DX: G93.41 Metabolic encephalopathy (principal); I13.2 Hypertensive heart and chronic kidney disease with heart failure and with stage 5 chronic kidney disease, or end stage renal disease; I50.9 Heart failure, unspecified; N18.6 End stage renal disease; D63.1 Anemia in chronic kidney disease; N28.89 Other specified disorders of kidney and ureter; J44.9 Chronic obstructive pulmonary disease, unspecified; E78.5 Hyperlipidemia, unspecified; E87.5 Hyperkalemia; E87.2 Acidosis; R59.1 Generalized enlarged lymph nodes; F17.210 Nicotine dependence, cigarettes, uncomplicated; Z99.2 Dependence on renal dialysis; Z87.442 Personal history of urinary calculi; Z79.899 Other long term (current) drug therapy; Z98.890 Other specified postprocedural states
CPT/HCPCS: 36415; 71250; 74176; 80048; 80074; 85027; 93005; 96374; 96375; 99285; G0378; J2270; J2405; J3490; Q0162